=== PATIENT | female | born 1960 | race Caucasian/White ===

== ENCOUNTER 2023-07-10 12:40 | Outpatient (OUT) | payer MEDICARE, MEDICAID, SELFPAY ==
--- NOTE | 2023-07-10 12:43 | US_ITS ---
The [address] [address] Patient Name: JUAN DANIEL PADILLA MRN: [id number] date: 1960 Sex: F Assigned Patient Location: [place] Current Patient Location: Accession/Order Number: [id number] Exam Date: 07/10/2023 12:48 Report Date: 07/12/2023 07:49 At the request of: JOHNY GALAN Procedure: US thyroid EXAMINATION: US thyroid HISTORY: Papillary Microcarcinoma Of Thyroid C73 COMPARISON: 07/12/2022 TECHNIQUE: Sonographic images of the thyroid gland were obtained. FINDINGS: The right thyroid lobe measures 6.7 cm. 2 focal nodules measuring up to 7 mm. The thyroid isthmus measures 1.5 mm, normal. The left thyroid lobe measures 3.9 x 0.9 0.8 cm. 4 nodules measuring up to 6 mm. The most suspicious nodule: Right thyroid lobe. 0.7 x 0.5 0.4 cm. Solid, hypoechoic, wide, smooth margins, TR 4 US/US thyroid IMPRESSION: Bilateral subcentimeter thyroid nodules, no follow-up is required TI-RADS: The [employer] TI-RADS committee's white paper recommendations for thyroid lesions classified as TR4 (moderately suspicious) are listed below: > 1.0 cm. Follow-up ultrasound in 1, 2, 3, and 5 years. > 1.5 cm. FNA. J. Am Leandra Radiol 2017;14:[id number]. . Electronically authenticated by: CEDRIC KERR Date: 07/12/2023 07:49
== END 2023-07-10 12:41 | disposition home or self-care (01) ==
LOC: US 12:40
PROVIDERS: PCP Family Medicine; Visit Provider Otolaryngology
DX: C73 Malignant neoplasm of thyroid gland (principal)
CPT/HCPCS: 76536

== ENCOUNTER 2023-08-26 11:00 | Outpatient (OUT) | payer MEDICARE, MEDICAID, SELFPAY ==
--- OUTSIDE RECORDS SUMMARY | 2023-08-26 11:07 | XMS_ITS | CCD ---
Author Name Unknown Address [address] [place] [address] Organization [facility] Care Team Providers Care Vp Training Name Role Phone Jeffry Woodall Unavailable Unavailable Jeffry Woodall Unavailable Unavailable SELF, REFERRED Unavailable Unavailable SELF, REFERRED Unavailable Unavailable Patrick Coley Unavailable Unavailable OSMANY GAMINO Unavailable Unavailable MERCED BEAL Primary Care Unavailable FRANCES HURT Attending Unavailable Merced Beal Primary Care Provider MD Merced Beal Primary Care Provider MD Vazquez Villar Attending Provider Vazquez Villar Unavailable ADAMA, DR MCCLAIN Admitting Unavailable TIMMIS, DR MCCLAIN Attending Unavailable EMIGDIO, DR HUITRON Primary Care Unavailable TIMMIS, DR MCCLAIN Consulting Unavailable WEST, DR CEDRIC Abdi Consulting Unavailable EMIGDIO, DR HUITRON Admitting Unavailable EMIGDIO, DR HUITRON Attending Unavailable EMIGDIO, DR HUITRON Primary Care Unavailable EMIGDIO, DR HUITRON Consulting Unavailable WEST, DR CEDRIC Abdi Consulting Unavailable Jose C Sheela Unavailable Merced Beal Primary Care Unavailable Jian, Vazquez S Attending Unavailable Jian, Vazquez S Admitting Unavailable Vazquez Villar S Attending Unavailable Vazquez Villar S Admitting Unavailable Merced Beal Primary Care Unavailable MERCY WILSON Attending Unavailable JOHNY GALAN Attending Unavailable MERCED BEAL Referring Unavailable Allergies Allergy Classification Reported Allergen(s) Allergy Type Date of Onset Reaction(s) Facility (1 source) Penicillins Propensity to adverse reactions to drug 3 [facility] [place] (20 sources) cyclobenzaprine; Translations: [Flexeril] Drug Allergy 6 HEADACHE [facility] (20 sources) Bleach Propensity to adverse reactions Unknown [employer] Other (1 source) diazePAM Drug Allergy 6 [facility] (1 source) gabapentin Drug Allergy 6 [facility] (1 source) Hypochlorite Drug Allergy 6 [facility] (1 source) Penicillins Drug allergy (disorder) 6 [facility] (3 sources) Dust Propensity to adverse reactions Unknown [employer] Other (3 sources) Mold Propensity to adverse reactions Unknown [employer] Other (3 sources) Penicillin Drug Allergy hives [employer] Other Medications Current Medications Medication Drug Class(es) Dates Sig (Normalized) Sig (Original) acetaminophen 325 mg oral tablet (2 sources) take 2 tablets by mouth every six hours as needed for pain acetaminophen (TYLENOL) 325 MG tablet Take 650 mg by mouth every 6 hours as needed for Pain 0 Active take 600 mg by mouth every six hours as needed Acetaminophen (TYLENOL EX ST ARTHRITIS P AIN PO) Take 600 mg by mouth every 6 hours as needed 0 Active ascorbic acid 250 mg oral tablet (1 source) Vitamin C take 2 tablets by mouth once daily Ascorbic Acid (VITAMIN C) 250 MG tablet Take 500 mg by mouth daily. 0 Active aspirin 325 mg oral tablet (1 source) Platelet Aggregation Inhibitor, Nonsteroidal Anti-inflammatory Drug take 2 tablets by mouth once daily aspirin 325 MG tablet Take 650 mg by mouth daily 0 Active baclofen 10 mg oral tablet (12 sources) gamma-Aminobutyric Acid-ergic Agonist take 1 tablet by mouth every eight hours Baclofen 10 MG 1 tablet as needed Orally TID Active Bee pollen (1 source) take 1 tablet by mouth once daily BEE POLLEN PO Take 1 tablet by mouth daily. 0 Active cephalexin 500 mg oral capsule (20 sources) Cephalosporin Antibacterial take 1 capsule by mouth every twelve hours Flax Seed Oil (3 sources) Flax Seed Oil Active furosemide 40 mg oral tablet (20 sources) Loop Diuretic take 1 tablet by mouth every twelve hours gabapentin 300 mg oral capsule (4 sources) Anti-epileptic Agent Start: 3 take 1 capsule by mouth every twelve hours Gabapentin 300 MG 1 capsule Orally bid for 30 days Mar, Active ibuprofen 600 mg oral tablet (20 sources) Nonsteroidal Anti-inflammatory Drug Start: 6 take 1 tablet by mouth every six hours as needed for pain ibuprofen (ADVIL;MOTRIN) 600 MG tablet Take 1 tablet by mouth every 6 hours as needed for Pain 30 tablet 0 02/27/2016 Active take 1 tablet by lambert three times daily at mealtime as needed Advil 200 MG 1 tablet with food or milk as needed Orally Three times a day Active linseed oil 1000 mg oral capsule (1 source) Flaxseed, Linsee d, (FLAXSEED OIL) 1000 MG CAPS Take 500 mg by mouth daily. 0 Active Magnesium (3 sources) Magnesium Active meloxicam 15 mg oral tablet (20 sources) Nonsteroidal Anti-inflammatory Drug Start: 020 take 0.5-1 tablets by mouth once daily as needed plecanatide 3 mg oral tablet (7 sources) take 1 tablet by mouth every twenty-four hours Trulance 3 MG 1 tablet Orally Once a day Active probiotic (3 sources) probiotic Active soybean lecithin 1200 mg oral capsule (1 source) take 2 capsules by mouth once daily Lecithin 1200 MG CAPS Take 2,400 mg by mouth daily. 0 Active SZSTANDARD1-Topical Cream Baclofen 2%, Cyclobenzaprine HCL 2%, Diclofenac Na 3%, Gabapentin 6%, Lidocaine HCL 2% Cream (20 sources) Start: 022 SZSTANDARD1-Topical Cream Baclofen 2%, Cyclobenzaprine HCL 2%, Diclofenac Na 3%, Gabapentin 6%, Lidocaine HCL 2% Cream NEEDED TOPICALLY APPLY 1-2 GRAMS FOR 2-3 MINUTES EVERY 6-8 HOURS for 30 days G89.29 Chronic pain Dec, Active Start: 11-23-2019 SZSTANDARD1-To pical Cream Baclofen 2%, Cyclobenzaprine HCL 2%, Diclofenac Na 3%, Gabapentin 6%, Lidocaine HCL 2% Cream NEEDED TOPICALLY APPLY 1-2 GRAMS FOR 2-3 MINUTES EVERY 6-8 HOURS for 30 days G89.29 Chronic pain Oct, Active Start: 11-23-2019 TENS Unit (15 sources) Start: 01-19-2022 TENS Unit Use as directed. Dec, Active tiZANidine 4 mg oral tablet (10 sources) Central alpha-2 Adrenergic Agonist Start: 08-29-2022 take 0.5-1 tablets by mouth twice daily as needed tiZANidine HCl 4 MG 1/2 to 1 tablet as needed Orally twice daily for 30 days Aug, Active topiramate 25 mg oral tablet (20 sources) Start: 11-23-2019 take 1 tablet by mouth twice daily Trulance 3 MG (1 source) take 1 tablet by mouth once daily Trulance 3 MG 1 tablet Orally Once a day Active Trulance 3mg (5 sources) take 1 tablet by mouth once daily Trulance 3mg 1 tablet po once a day Active Turmeric extract (3 sources) Turmeric Active Tylenol Extra Strength 500 MG (20 sources) take 1 tablet by mouth every six hours as needed Tylenol Extra Strength 500 MG 1 tablet as needed Orally every 6 hrs Active Vitamin B 12 (20 sources) Vitamin B12 Vitamin B12 Active take 1 tablet by mouth once oksana y Cyanocobalamin (B-12) 500 MCG TABS Take 1 tablet by mouth daily. 0 Active vitamin d 1000 unt oral tablet (1 source) take 1 tablet by lambert th once daily vitamin D (CHOLECALCIFEROL) 1000 UNIT TABS tablet Take 1,000 Units by mouth daily 0 Active Vitamin D3 (20 sources) Vitamin D3 Activ e vitamin e 180 mg oral capsule (3 sources) take 1 capsule by mo uth every twenty-four hours Vitamin E 180 MG (400 UNIT) 1 capsule Orally Once a day Active Completed/Discontinued Medications Medication Drug Class(es) Dates Sig (Normalized) Sig (Original) 200 actuat albuterol 0.09 mg/actuat metered dose inhaler (1 source) beta2-Adrenergic Agonist Start: 09-19-2014 End: 04-27-2019 take 2 puff(s) by inhalation every six hours as needed for wheezing albuterol (PROVENTIL HFA) 108 (90 BASE) MCG/ACT inhaler Inhale 2 puffs into the lungs every 6 hours as needed for Wheezing. 1 Inhaler 3 09/19/2014 04/27/2019 Discontinued (Therapy completed) guaiFENesin 400 mg oral tablet (1 source) End: 04-27-2019 take 1 tablet by mouth four times daily as needed for cough guaiFENesin 400 MG tablet Take 400 mg by mouth 4 times daily as needed for Cough. 0 04/27/2019 Discontinued (Therapy completed) meclizine hydrochloride 12.5 mg oral tablet (2 sources) Antiemetic Start: 04-27-2019 End: 04-27-2019 meclizine (ANTIVERT) tablet 50 mg Start: 04-27-2019 End: 05-07-2019 take 1 tablet by mouth three times daily as needed for dizziness meclizine (ANTIVERT) 25 MG tablet Take 1 tablet by mouth 3 times daily as needed for Dizziness 15 tablet 0 04/27/2019 05/07/2019 Active methocarbamol 500 mg oral tablet (1 source) Muscle Relaxant End: 04-27-2019 take 1 tablet by mouth once daily as needed methocarbamol (ROBAXIN) 500 MG tablet Take 500 mg by mouth daily as needed 0 04/27/2019 Discontinued (Therapy completed) NONFORMULARY (1 source) End: 04-27-2019 NONFORMULARY Take 1,000 mg by mouth daily. Vit d 3 0 04/27/2019 Discontinued (Therapy completed) predniSONE 10 mg oral tablet (7 sources) prednisone 10 mg as directed Orally as directed Not-Taking 50 ml sodium chloride 9 mg/ml injection (1 source) Start: 04-27-2019 End: 04-27-2019 0.9 % sodium chloride bolus therapeutic multivitamin-mineral s (THERAGRAN-M) tablet (1 source) End: 04-27-2019 take 1 tablet by mouth once daily therapeutic multivitamin-minera ls (THERAGRAN-M) tablet Take 1 tablet by mouth daily. 0 04/27/2019 Discontinued (Therapy completed) triamcinolone acetonide 40 mg/ml injectable suspension (20 sources) Corticosteroid Start: 02-05-2022 Kenalog-40 Jan, 40 mg Problems Active Problems Problem Classification Problem Date Documented Da te Episodic/Chronic Biliary tract disease (3 sources) Gallstone; Translations: [Calculus of gallbladder without cholecystitis without obstruction] Episodic Cancer of thyroid (3 sources) Papillary thyroid carcinoma; Translations: [Malignant neoplasm of thyroid gland] Chronic Miscellaneous mental health disorders (3 sources) Primary insomnia; Translations: [Primary insomnia] Chronic Osteoarthritis (20 sources) Osteoarthritis of left knee joint; Translations: [Unilateral primary osteoarthritis, left knee] Onset: 01-19-2022 Resolved: 03-20-2022 Chronic Other acquired deformities (3 sources) Spondylolisthesis; Translations: [Spondylolisthesis, lumbar region] Episodic Other bone disease and musculoskeletal deformities (3 sources) Idiopathic scoliosis; Translations: [Other idiopathic scoliosis, lumbar region] Chronic Other connective tissue disease (3 sources) Fibromyalgia; Translations: [Fibromyalgia] Episodic Other gastrointestinal disorders (3 sources) Slow transit constipation; Translations: [Slow transit constipation] Episodic Other nervous system disorders (20 sources) Chronic pain; Translations: [Other chronic pain] Chronic Other nervous system disorders (18 sources) Other chronic pain Onset: 10-02-2021 Resolved: 03-20-2022 Chronic Other nervous system disorders (3 sources) Paresthesia of lower extremity; Translations: [Paresthesia of skin] Episodic Other nutritional; endocrine; and metabolic disorders (3 sources) Xanthoma of eyelid; 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 Other screening for suspected conditions (not mental disorders or infectious disease) (7 sources) Encounter for screening mammogram for malignant neoplasm of breast; Translations: [Mammography abnormal] Onset: 08-03-2022 Episodic Other upper respiratory disease (3 sources) Seasonal allergic rhinitis; Translations: [Other seasonal allergic rhinitis] Chronic Other upper respiratory infections (3 sources) Sinusitis; Translations: [Chronic sinusitis, unspecified] Chronic Spondylosis; intervertebral disc disorders; other back problems (20 sources) Lumbosacral spondylosis; Translations: [Spondylosis without myelopathy or radiculopathy, lumbosacral region] Onset: 10-02-2021 Resolved: 03-20-2022 Chronic Spondylosis; intervertebral disc disorders; other back problems (20 sources) Radiculopathy, lumbar region; Translations: [Lumbar radiculopathy] Onset: 10-02-2021 Resolved: 11-06-2021 Episodic Thyroid disorders (10 sources) Nontoxic multinodular goiter; Translations: [Thyroid nodule] Onset: 07-12-2022 Chronic Unclassified (2 sources) Unknown / UNK(Unknown) Onset: 04-04-2016 Unclassified (1 source) M25.562 - Pain in left knee; Translations: [M25.562 - Pain in left knee] Onset: 01-01-2022 Past or Other Problems Problem Classification Problem Date Documented Da te Episodic/Chronic Conditions associated with dizziness or vertigo (1 source) Dizziness; Translations: [Dizziness] Episodic Other nervous system disorders (1 source) Paresthesia; Translations: [Paresthesia] Episodic Other non-traumatic joint disorders (2 sources) Pain in left knee Onset: 01-19-2022 Resolved: 02-05-2022 Episodic Results Test Name Value Interpretation Reference Range Facility XR pre/post mri xrayon 10-16 XR pre/post mri xray [facility] [place] [address] MRI Report Signed Patient: Osiris Padilla MR#: [id number] 0 : 1960 Acct:[id number] Age/Sex: 61 / F ADM Date: 10/15/22 Loc: Room: Type: [facility] Attending Dr: Vazquez Villar MD Copies to: Vazquez Villar MD Ordering Provider: Vazquez Villar MD Date of Service: 10/15/22 MR/MR lumbar spine wo con: M54.16 ([id number]) XR/XR pre/post mri xray: M54.16 MR lumbar spine wo con, XR pre/post mri xray 10/15/2022 4:33 PM SIGNS AND SYMPTOMS: Chronic back pain radiating into right leg PROTOCOL: Multiplanar multisequence MR images of the lumbar spine were obtained without IV contrast. Frontal and lateral radiograph of the lumbar spine were obtained. COMPARISON: 08/11/2021 FINDINGS: Radiographs of the cervical spine: There is a dextro convex curvature of the lower lumbar spine. There is a mild levoconvex curvature at the thoracolumbar junction. Bilateral L5 pars defects are noted with grade 2 spondylolisthesis measuring 2.1 cm of L5 upon S1. This is similar to the prior exam. There is moderate to severe disc height loss at L2-L3 and L3-L4 with severe disc height loss at L5-S1. This is slightly worse when compared to the prior study. There is evidence of prior cholecystectomy. Mild degenerative changes are noted in the sacral iliac joints. Degenerative changes are noted in the hips, right greater than left. MRI lumbar spine: Disc height loss and alignment is as noted above. This preservation of vertebral body heights. There is fusion across L5-S1 disc. There is a hemangioma in the L2 vertebral body with Modic type II fatty endplate degenerative change at L2-L3. There is mild Modic type I endplate edema at L3-L4.. The conus terminates at the inferior endplate of the L2 vertebral body level. No epidural or paraspinous fluid collection is appreciated. At T12-L1: There is a broad-based disc bulge with facet hypertrophy. There is mild bilateral neural foraminal narrowing with mild spinal canal narrowing. This is unchanged. At L1-L2: There is a broad-based disc bulge with facet hypertrophy. There is mild spinal canal narrowing without significant neural foraminal narrowing. This is unchanged. At L2-L3: There is a circumferential disc bulge with facet hypertrophy. There is moderate narrowing of spinal canal. There is moderate right and mild left neural foraminal stenosis. This is unchanged. At L3-L4: There is a circumferential disc bulge with facet hypertrophy. There is moderate narrowing of spinal canal with mild to moderate right and moderate to severe left neural foraminal stenosis. There is slight interval worsening when compared to the prior exam. At L4-L5: There is a broad-based disc bulge with facet hypertrophy. There is mild narrowing of spinal canal. There is mild right and moderate to severe left neural foraminal stenosis. This is unchanged. At L5-S1: There is endplate osteophyte formation with significant anterolisthesis of L5 upon S1. There is facet hypertrophy. There is moderate to severe bilateral neural foraminal narrowing left greater than right with mass effect on the exiting L5 nerve roots bilaterally. This is similar to the prior exam. MR/MR lumbar spine wo con IMPRESSION: At L3-L4: There is a circumferential disc bulge with facet hypertrophy. There is moderate narrowing of spinal canal with mild to moderate right and moderate to severe left neural foraminal stenosis. There is slight interval worsening when compared to the prior exam. At L5-S1: There is endplate osteophyte formation with significant anterolisthesis of L5 upon S1. There is facet hypertrophy. There is moderate to severe bilateral neural foraminal narrowing left greater than right with mass effect on the exiting L5 nerve roots bilaterally. This is similar to the prior exam. Additional lesser degrees of degenerative changes are noted showing no significant change when compared to the prior exam. Impression dictated by: Frances Hernandez M.D.10/15/2022 10:19 PM Dictation Location: [place] [address] Transcribed By: [facility] 10/15/222218 Dictated By: Frances Hernandez II, MD 10/15/222212 Signed By: 10/15/222218 [facility] MG MAMM SCREEN 3D AL CADon 08-03-2022 MG MAMM SCREEN 3D AL CAD Patient: JUAN DANIEL PADILLA Exam Date: 08/03/2022 : 1960 Gender:F Ordering : DR MERCED BEAL M.D. Admission #: [id number] Family : Order #: [id number] CLICK HERE TO VIEW EXAM RADIOLOGY REPORT PROCEDURE: MAMMOGRAM SCREENING 3D BILATERAL CAD COMPARISON: MG MAMM SCREEN AL W CAD, 07/28/2020. MG MAMM SCREEN 3D AL CAD, 08/01/2021. INDICATIONS: Screening mammography Calculator Name NCI Breast Cancer Risk Assessment Tool 5 Year Breast Cancer Risk 1.10% Lifetime Breast Cancer Risk 4.90% Personal Breast Cancer No Personal Ovarian Cancer No Treatments Thyroidectomy Family Cancers None LOCATION: [facility] BREAST COMPOSITION: Scattered areas fibroglandular density. FINDINGS: DIAGNOSTIC CATEGORY 1--NEGATIVE. NO CHANGE FROM COMPARISON ASSESSMENT. Scattered benign-appearing calcifications are present. Scattered benign-appearing lymph nodes are present. RIGHT BREAST: No significant suspicious finding. LEFT BREAST: No significant suspicious finding. RECOMMENDATIONS: ROUTINE MAMMOGRAM AND CLINICAL EVALUATION IN 12 MONTHS. PLEASE NOTE: A NORMAL MAMMOGRAM DOES NOT EXCLUDE THE POSSIBILITY OF BREAST CANCER. A CLINICALLY SUSPICIOUS PALPABLE LUMP SHOULD BE BIOPSIED. Dictated by: Cedric Kerr MD on 08/03/2022 at 15:01 Approved by: Cedric Kerr MD on 08/03/2022 at 15:03 Normal [facility] US THYROIDon 07-12-2022 US THYROID EXAMINATION: US THYROID HISTORY: Non-toxic multinodular goiter COMPARISON: No relevant comparison available. TECHNIQUE: Sonographic images of the thyroid gland were obtained. FINDINGS: The right thyroid lobe is asymmetrically small, heterogeneous measuring 2.0 x 0.4 x 1.0 cm. Subcentimeter nodules largest measuring 7 mm. The thyroid isthmus measures 1.1 mm. No focal nodule The left thyroid lobe measures 4.4 x 1.0 x 1.7 cm. 3 subcentimeter nodules the largest measuring 8 mm Nodule 1:0.8 x 0.4 x 0.8 cm. Solid, isoechoic, wide, smooth margins, no calcifications. TR 3 IMPRESSION: Scattered subcentimeter nodules no follow-up Electronically authenticated by: CEDRIC KERR Date: 2022-07-12 19:03 Normal [facility] XR knee LT 4V*on 01-01-2022 XR knee LT 4V* [facility] Main [place] [address] [place] [address] XRay Report Signed Patient: Osiris Padilla MR#: [id number] 0 : 1960 Acct:[id number] Age/Sex: 61 / F ADM Date: 01/01/22 Loc: XD Room: Type: [facility] Attending Dr: Vazquez Villar MD Ordering Provider: Vazquez Villar MD Date of Service: 01/01/22 XR/XR knee LT 4V*: M25.562 Copies to: Vazquez Villar MD LEFT KNEE - 4 views COMPARISON: None CLINICAL DATA: Lateral left knee pain after climbing into a vehicle yesterday. No specific injury. AP, lateral and both oblique views were obtained. There is no acute fracture or dislocation. There is minimal narrowing of the medial tibiofemoral joint compartment. There is mild tricompartment marginal spurring, greatest at the posterior patella. There is a knee effusion. No focal soft tissue swelling is seen. XR/XR knee LT 4V* IMPRESSION: DEGENERATIVE CHANGES. KNEE EFFUSION. Impression dictated by: Mercy Salgado M.D.01/01/2022 4:46 PM Dictation Location: [place] [address] Transcribed By: [facility] 01/01/22 164 Dictated By: Mercy Salgado MD 01/01/22 1644 Signed By: 01/01/22 164 [facility] CBC Auto Differentialon [id number] Basophils (Bld) [#/Vol] 0.07 10*3/uL [facility] [place] Basophils/100 WBC (Bld) 1 % 0 - 2 % [facility] [place] Differential Type NOT REPORTED [place], [place] Eosinophils (Bld) [#/Vol] 0.08 10*3/uL [place] Eosinophils/100 WBC (Bld) 1 % 1 - 4 % [place] Erythrocyte distribution width (RBC) [Ratio] 12.8 % 11.8 - 14.4 % [place] Hematocrit (Bld) [Volume fraction] 43.7 % 36.3 - 47.1 % [place] Hemoglobin (Bld) [Mass/Vol] 14.6 g/dL 11.9 - 15.1 g/dL [place] Immature granulocytes (Bld) [#/Vol] 10*3/uL [place] Immature granulocytes (Bld) [#/Vol] 0 % 0 [place] Interpretation and review of laboratory results Abnormal [place] Lymphocytes (Bld) [#/Vol] 1.92 10*3/uL [place] Lymphocytes/100 WBC (Bld) 27 % 24 - 43 % [place] MCH (RBC) [Entitic mass] 29.9 pg 25.2 - 33.5 pg [place] MCHC (RBC) [Mass/Vol] 33.4 g/dL 28.4 - 34.8 g/dL [place] MCV (RBC) [Entitic vol] 89.5 fL 82.6 - 102.9 fL [place] Monocytes (Bld) [#/Vol] 0.37 10*3/uL [place] Monocytes/100 WBC (Bld) 5 % 3 - 12 % [place] Platelet mean volume (Bld) [Entitic vol] 10.2 fL 8.1 - 13.5 fL [place] Platelets (Bld) [#/Vol] 255 10*3/uL [place] Platelets (Bld) [#/Vol] NOT REPORTED [place] RBC (Bld) [#/Vol] 4.88 10*6/uL 3.95 - 5.1 1 m/uL [place] RBC morphology finding Nom (Bld) NOT REPORTED [place] Segmented neutrophils/100 WBC (Bld) 66 % High 36 - 65 % [place] Segs Absolute 4.70 [place] WBC (Bld) [#/Vol] 0.0 10*3/uL 0.0 per 10 0 WBC [place] WBC (Bld) [#/Vol] 7.2 10*3/uL [place] WBC Morphology NOT REPORTED [place], [place] CBC with Diffon 04-27-2019 Abs. Basophil 0.07 k/uL Normal 0.00-0.20 [facility] Comment on above: Performed By: #### T HUA CHAPA, CP #### [address] [place] [id number] Automatic Chief: Osmany Chow MD Abs.Imm.Granulocyte <0.03 Normal 0.00-0.30 [facility] Comment on above: Performed By: #### HUA DE OLIVEIRA, CP #### [address] [place] [id number] Automatic Chief: Osmany Chow MD Abs.Neutrophil (Seg) 4.70 k/uL Normal 1.50-8.10 [facility] Comment on above: Performed By: #### HUA DE OLIVEIRA, CP #### [address] [place] [id number] Automatic Chief: Osmany Chow MD Basophils/100 WBC (Bld) 1 % Normal 0-2 [facility] Comment on above: Performed By: #### HUA DE OLIVEIRA, CP #### [address] [place] [id number] Automatic Chief: Osmany Chow MD Eosinophils (Bld) [#/Vol] 0.08 10*3/uL Normal 0.00-0.44 [facility] Comment on above: Performed By: #### HUA DE OLIVEIRA, CP #### [address] [place], [place] [address] Automatic Chief: Osmany Chow MD Eosinophils/100 WBC (Bld) 1 % Normal 1-4 [facility] Comment on above: Performed By: #### HUA DE OLIVEIRA, CP #### [facility] [address] [place], [facility] Automatic Chief: Osmany Chow MD Erythrocyte distribution width (RBC) [Ratio] 12.8 % Normal 11.8-14.4 [facility] Comment on above: Performed By: #### HUA DE OLIVEIRA, CP #### [facility] [address] [place] [address] Automatic Chief: Osmany Chow MD Hematocrit (Bld) [Volume fraction] 43.7 % Normal 36.3-47.1 [facility] Comment on above: Performed By: #### HAU DE OLIVEIRA, CP #### [address] [place], [place] [address] Automatic Chief: Osmany Chow MD Hemoglobin (Bld) [Mass/Vol] 14.6 g/dL Normal 11.9-15.1 [facility] Comment on above: Performed By: #### HUA DE OLIVEIRA, CP #### [address] [place] [address] Automatic Chief: Osmany Chow MD Immature granulocytes (Bld) [#/Vol] 0 % Normal 0 [facility] Comment on above: Performed By: #### HUA DE OLIVEIRA, CP #### [facility] [address] [place], [facility] Automatic Chief: Osmany Chow MD Lymphocytes (Bld) [#/Vol] 1.92 10*3/uL Normal 1.10-3.70 [facility] Comment on above: Performed By: #### HUA DE OLIVEIRA, CP #### [facility] [address] [place] [id number] Automatic Chief: Osmany Chow MD Lymphocytes/100 WBC (Bld) 27 % Normal 24-43 [facility] Comment on above: Performed By: #### HUA DE OLIVEIRA, CP #### [facility] [address] [place] [id number] Automatic Chief: Osmany Chow MD MCH (RBC) [Entitic mass] 29.9 pg Normal 25.2-33.5 [facility] Comment on above: Performed By: #### HUA DE OLIVEIRA, CP #### [facility] [address] [place] [id number] Automatic Chief: Osmany Chow MD MCHC (RBC) [Mass/Vol] 33.4 g/dL Normal 28.4-34.8 [facility] Comment on above: Performed By: #### HUA DE OLIVEIRA, CP #### [facility] [address] [place], [id number] Automatic Chief: Osmany Chow MD MCV (RBC) [Entitic vol] 89.5 fL Normal 82.6-102.9 [facility] Comment on above: Performed By: #### HUA DE OLIVEIRA, CP #### [facility] [address] [place], [place] [id number] Automatic Chief: Osmany Chow MD Monocytes (Bld) [#/Vol] 0.37 10*3/uL Normal 0.10-1.20 [facility] Comment on above: Performed By: #### HUA DE OLIVEIRA, CP #### [facility] [address] [place], [place] [id number] Automatic Chief: Osmany Chow MD Monocytes/100 WBC (Bld) 5 % Normal 3-12 [facility] Comment on above: Performed By: #### HUA DE OLIVEIRA, CP #### [facility] [address] [place] [address] Automatic Chief: Osmany Chow MD Neutrophil (Seg) 66 % High 36-65 [facility] Comment on above: Performed By: #### T HUA CHAPA, CP #### [address] [place] [address] Automatic Chief: Osmany Chow MD NRBC Automated 0.0 per 100 WBC Normal 0.0 [facility] Comment on above: Performed By: #### T HUA CHAPA, CP #### [facility] [address] [place] [address] Automatic Chief: Osmany Chow MD Platelet mean volume (Bld) [Entitic vol] 10.2 fL Normal 8.1-13.5 [facility] Comment on above: Performed By: #### T HUA CHAPA, CP #### [address] [place] [address] Automatic Chief: Osmany Chow MD Platelets (Bld) [#/Vol] 255 10*3/uL Normal 138-453 [facility] Comment on above: Performed By: #### T HUA CHAPA, CP #### [address] [place], [place] [address] Automatic Chief: Osmany Chow MD RBC (Bld) [#/Vol] 4.88 10*6/uL Normal 3.95-5.11 [facility] Comment on above: Performed By: #### T HUA CHAPA, CP #### [address] [place], [place] [address] Automatic Chief: Osmany Chow MD WBC (Bld) [#/Vol] 7.2 10*3/uL Normal 3.5-11.3 [facility] Comment on above: Performed By: #### T HUA CHAPA, CP #### [address] [place] [address] Automatic Chief: Osmany Chow MD Auto Diff Performed NOT REPORTED Normal [facility] Comment on above: Performed By: #### T HUA CHAPA, CP #### [facility] [address] [place], [place] [phone] Automatic Chief: Osmany Cohw MD Platelets (Bld) [#/Vol] NOT REPORTED Normal [facility] Comment on above: Performed By: #### T HUA CHAPA, CP #### [facility] [address] [place], [place] [id number] Automatic Chief: Osmany Chow MD RBC morphology finding Nom (Bld) NOT REPORTED Normal [facility] Comment on above: Performed By: #### T HUA CHAPA, CP #### [facility] [address] [place], [place] [id number] Automatic Chief: Osmany Chow MD WBC Morphology NOT REPORTED Normal [facility] Comment on above: Performed By: #### T HUA CHAPA, CP #### [facility] [address] [place], [place] [id number] Automatic Chief: Osmany Chow MD CT HEAD WO CONTRASTon 2018 CT HEAD WO CONTRAST EXAMINATION: CT OF THE HEAD WITHOUT CONTRAST 04/27/2019 3:43 pm TECHNIQUE: CT of the head was performed without the administration of intravenous contrast. Dose modulation, iterative reconstruction, and/or weight based adjustment of the mA/kV was utilized to reduce the radiation dose to as low as reasonably achievable. COMPARISON: 06 August 2015 HISTORY: ORDERING SYSTEM PROVIDED HISTORY: Lightheaded and paresthesia TECHNOLOGIST PROVIDED HISTORY: FINDINGS: BRAIN/VENTRICLES: There is no acute intracranial hemorrhage, mass effect or midline shift. No abnormal extra-axial fluid collection. The alexandre-white differentiation is maintained without evidence of an acute infarct. There is no evidence of hydrocephalus. Scattered hypodensity is present in the white matter consistent with chronic microvascular change. ORBITS: The visualized portion of the orbits demonstrate no acute abnormality. SINUSES: The visualized paranasal sinuses and mastoid air cells demonstrate no acute abnormality. SOFT TISSUES/SKULL: No acute abnormality of the visualized skull or soft tissues. IMPRESSION: No acute intracranial abnormality. Interpreted by: Mireya Liu MD Signed by: Mireya Liu MD 04/27/19 Final result Normal [facility] CT Head WO Contraston 2018 No acute intracrania l abnormality. [facility] KELSY Vladimir, Mhpn Incoming Radiant Results From [facility] - 04/27/2019 3:57 PM EDT EXAMINATION: CT OF THE HEAD WITHOUT CONTRAST 04/27/2019 3:43 pm TECHNIQUE: CT of the head was performed without the administration of intravenous contrast. Dose modulation, iterative reconstruction, and/or weight based adjustment of the mA/kV was utilized to reduce the radiation dose to as low as reasonably achievable. COMPARISON: 06 August 2015 HISTORY: ORDERING SYSTEM PROVIDED HISTORY: Lightheaded and paresthesia TECHNOLOGIST PROVIDED HISTORY: FINDINGS: BRAIN/VENTRICLES: There is no acute intracranial hemorrhage, mass effect or midline shift. No abnormal extra-axial fluid collection. The alexandre-white differentiation is maintained without evidence of an acute infarct. There is no evidence of hydrocephalus. Scattered hypodensity is present in the white matter consistent with chronic microvascular change. ORBITS: The visualized portion of the orbits demonstrate no acute abnormality. SINUSES: The visualized paranasal sinuses and mastoid air cells demonstrate no acute abnormality. SOFT TISSUES/SKULL: No acute abnormality of the visualized skull or soft tissues. IMPRESSION: No acute intracranial abnormality. [facility] KELSY EXAMINATION: CT OF T HE HEAD WITHOUT CONTRAST 04/27/2019 3:43 pm TECHNIQUE: CT of the head was performed without the administration of intravenous contrast. Dose modulation, iterative reconstruction, and/or weight based adjustment of the mA/kV was utilized to reduce the radiation dose to as low as reasonably achievable. COMPARISON: 06 August 2015 HISTORY: ORDERING SYSTEM PROVIDED HISTORY: Lightheaded and paresthesia TECHNOLOGIST PROVIDED HISTORY: FINDINGS: BRAIN/VENTRICLES: There is no acute intracranial hemorrhage, mass effect or midline shift. No abnormal extra-axial fluid collection. The alexandre-white differentiation is maintained without evidence of an acute infarct. There is no evidence of hydrocephalus. Scattered hypodensity is present in the white matter consistent with chronic microvascular change. ORBITS: The visualized portion of the orbits demonstrate no acute abnormality. SINUSES: The visualized paranasal sinuses and mastoid air cells demonstrate no acute abnormality. SOFT TISSUES/SKULL: No acute abnormality of the visualized skull or soft tissues. [facility] (cont.) Normal [facility] Comment on above: Result Comment: Aver age GFR for 60-69 years old: 85 mL/min/1.73sq m Chronic Kidney Disease: <60 mL/min/1.73sq m Kidney failure: <15 mL/min/1.73sq m eGFR calculated using average adult body mass. Additional eGFR calculator available at: http://www.[employer]/multiple_crcl_2012.htm Performed By: #### T HUA CHAPA, CP #### [facility] [address] [place], [place] [id number] Automatic Chief: Osmany Chow MD Albumin [Mass/Vol] 4.6 g/dL Normal 3.5-5.2 [facility] Comment on above: Performed By: #### HUA DE OLIVEIRA, CP #### [facility] [address] [place], [place] [id number] Automatic Chief: Osmany Chow MD Albumin/Globulin [Mass ratio] 1.4 {ratio} Normal 1.0-2.5 [facility] Comment on above: Performed By: #### HUA DE OLIVEIRA, CP #### [facility] [address] [place], [place] [id number] Automatic Chief: Osmany Chow MD Alkaline Phos 129 U/L High 35-104 [facility] Comment on above: Performed By: #### HUA DE OLIVEIRA, CP #### [facility] [address] [place], [place] [phone] Automatic Chief: Osmany Chow MD ALT [Catalytic activity/Vol] 13 U/L Normal 5-33 [facility] Comment on above: Performed By: #### HUA DE OLIVEIRA, CP #### [facility] [address] [place], [place] [id number] Automatic Chief: Osmany Chow MD Anion gap [Moles/Vol] 20 mmol/L High 9-17 [facility] Comment on above: Performed By: #### HUA DE OLIVEIRA, CP #### [facility] [address] [place], [place] [id number] Automatic Chief: Osmany Chow MD AST [Catalytic activity/Vol] 16 U/L Normal <32 [facility] Comment on above: Performed By: #### T EDUARD CDP, CP #### [facility] [address] [place], [place] [id number] Automatic Chief: Osmany Chow MD Bilirubin Ql (U) 0.36 mg/dL Normal 0.3-1.2 [facility] Comment on above: Performed By: #### T HUA CHAPA, CP #### [facility] [address] [place], [place] [id number] Automatic Chief: Osmany Chow MD BUN/CRE Ratio 9 Normal 9-20 [facility] Comment on above: Performed By: #### T HUA CHAPA, CP #### [facility] [address] [place], [place] [phone] Automatic Chief: Osmany Chow MD Calcium [Mass/Vol] 9.7 mg/dL Normal 8.6-10.4 [facility] Comment on above: Performed By: #### T HUA CHAPA, CP #### [address] [place], [place] [id number] Automatic Chief: Osmany Chow MD Chloride [Moles/Vol] 96 mmol/L Low 98-107 [facility] Comment on above: Performed By: #### T HUA CHAPA, CP #### [facility] [address] [place], [place] [id number] Automatic Chief: Osmany Chow MD CO2 [Moles/Vol] 23 mmol/L Normal 20-31 [facility] Comment on above: Performed By: #### T HUA CHAPA, CP #### [facility] [address] [place], [place] [phone] Automatic Chief: Osmany Chow MD Creatinine [Mass/Vol] 1.17 mg/dL High 0.50-0.90 [facility] Comment on above: Performed By: #### T HUA CHAPA, CP #### [facility] [address] [place], [place] [phone] Automatic Chief: Osmany Chow MD GFR, Amer 57 mL/min Low >60 [facility] Comment on above: Performed By: #### T HUA CHAPA, CP #### [facility] [address] [place], [place] [id number] Automatic Chief: Osmany Chow MD GFR,non Amer 47 mL/min Low >60 [facility] Comment on above: Performed By: #### T HUA CHAPA, CP #### [facility] [address] [place], [place] [id number] Automatic Chief: Osmany Chow MD Glucose [Mass/Vol] 185 mg/dL High 70-99 [facility] Comment on above: Performed By: #### T HUA CHAPA, CP #### [facility] [address] [place], [place] [phone] Automatic Chief: Osmany Chow MD Potassium [Moles/Vol] 4.1 mmol/L Normal 3.7-5.3 [facility] Comment on above: Performed By: #### T HUA CHAPA, CP #### [facility] [address] [place], [place] [id number] Automatic Chief: Osmany Chow MD Protein [Mass/Vol] 7.8 g/dL Normal 6.4-8.3 [facility] Comment on above: Performed By: #### T HUA CHAPA, CP #### [facility] [address] [place], [place] [id number] Automatic Chief: Osmany Chow MD Sodium [Moles/Vol] 139 mmol/L Normal 135-144 [facility] Comment on above: Performed By: #### T HUA CHAPA, CP #### [facility] [address] [place], [place] [id number] Automatic Chief: Osmany Chow MD Staging: Normal [facility] Comment on above: Result Comment: Stag e 1: Some kidney damage normal GFR Stage 2: Mild kidney damage GFR 60-89 Stage 3: Moderate kidney damage GFR 30-59 Stage 4: Severe kidney damage GFR 15-29 Stage 5: Severe kidney damage GFR <15 ESRD - chronic treatment by dialysis or transplant Performed By: #### HUA DE OLIVEIRA, CP #### [facility] [address] [place], [place] [id number] Automatic Chief: Osmany Chow MD Urea nitrogen [Mass/Vol] 11 mg/dL Normal 8 [facility] Comment on above: Performed By: #### HUA DE OILVEIRA, CP #### [facility] [address] [place] [address] Automatic Chief: Osmany Chow MD [facility] Metabolic [facility] 04-27-2019 Albumin [Mass/Vol] 4.6 g/dL 3.5 - 5.2 g/dL [place], [place] Albumin/Globulin [Mass ratio] 1.4 {ratio} [place], [place] ALP [Catalytic activity/Vol] 129 U/L High 35 - 104 U/L [place] ALT [Catalytic activity/Vol] 13 U/L 5 - 33 U/L [place] Anion gap [Moles/Vol] 20 mmol/L High 9 - 17 mmol/L [place] AST [Catalytic activity/Vol] 16 U/L <32 [place] Bilirubin Ql (U) 0.36 mg/dL 0.3 - 1.2 mg/dL [place] Bun/Cre Ratio 9 [place], [place] Calcium [Mass/Vol] 9.7 mg/dL 8.6 - 10. 4 mg/dL [place] Chloride [Moles/Vol] 96 mmol/L Low 98 - 10 7 mmol/L [place] CO2 [Moles/Vol] 23 mmol/L 20 - 31 mmol/L [place] Creatinine [Mass/Vol] 1.17 mg/dL High 0.5 - 0.9 mg/dL [place] GFR 57 mL/min Low >60 [place], [place] GFR Non- 47 mL/min Low >60 [place] Glucose [Mass/Vol] 185 mg/dL High 70 - 99 mg/dL [place] Interpretation and review of laboratory results Abnormal [place] Potassium [Moles/Vol] 4.1 mmol/L 3.7 - 5.3 mmol/L [place] Protein [Mass/Vol] 7.8 g/dL 6.4 - 8.3 g/dL [place], [place] Sodium [Moles/Vol] 139 mmol/L 135 - 144 mmol/L [place] Urea nitrogen [Mass/Vol] 11 mg/dL 8 - 23 mg/dL [place] Metabolic Panelon 04-27-2019 GFR/1.73 sq M predicted among non-blacks MDRD (S/P/Bld) [Vol rate/Area] [place], [place] Comment on above: Stage 1: Some kidney damage normal GFR Stage 2: Mild kidney damage GFR 60-89 Stage 3: Moderate kidney damage GFR 30-59 Stage 4: Severe kidney damage GFR 15-29 Stage 5: Severe kidney damage GFR <15 ESRD - chronic treatment by dialysis or transplant Average GFR for 60-6 9 years old: 85 mL/min/1.73sq m Chronic Kidney Disease: <60 mL/min/1.73sq m Kidney failure: <15 mL/min/1.73sq m eGFR calculated using average adult body mass. Additional eGFR calculator available at: http://www.[employer]/multiple_crcl_2012.htm Troponinon 04-27-2019 Troponin I.cardiac [Mass/Vol] ng/mL Normal <0.03 [facility] Comment on above: Result Comment: Trop onin T results cannot be compared to Troponin-I results. Performed By: #### T HUA CHAPA, CP #### [facility] [address] [place] [address] Automatic Chief: Osmany Chow MD Troponin I.cardiac [Mass/Vol] Normal [facility] Comment on above: Result Comment: Refe rence Range: <0.03 Within reference range. 0.03-0.09 Possible myocardial damage. Repeat at appropriate intervals to rule out chronic elevation. >= 0.10 Indicative of myocardial damage. Patients with high levels of Biotin oral intake (i.e >5mg/day) may have falsely decreased Troponin T levels. Samples collected within 8 hours of biotin intake may require additional information for diagnosis. Performed By: #### T HUA CHAPA, CP #### [facility] [address] [place] [address] Automatic Chief: Osmany Chow MD Troponin I.cardiac [Mass/Vol] NOT REPORTED Normal 0-14 [facility] Comment on above: Performed By: #### T HUA CHAPA, CP #### [facility] [address] [place] [address] Automatic Chief: Osmany Chow MD Troponin I.cardiac [Mass/Vol] [place], [place] Comment on above: Reference Range: <0.03 Within reference range. 0.03-0.09 Possible myocardial damage. Repeat at appropriate intervals to rule out chronic elevation. >= 0.10 Indicative of myocardial damage. Patients with high levels of Biotin oral intake (i.e >5mg/day) may have falsely decreased Troponin T levels. Samples collected within 8 hours of biotin intake may require additional information for diagnosis. Troponin T.cardiac [Mass/Vol] ug/L <0.03 ng/mL [place], [place] Comment on above: Troponin T results c annot be compared to Troponin-I results. Troponin, High Sensitivity NOT REPORTED 0 - 14 ng/L [place] Vital Signs Date Time Vital Sign Value Performing Clinician Facility 05-27-2023 13:45-0400 Body height 165.1 cm Vazquez Villar Other [facility] Other 05-27-2023 13:45-0400 Diastolic blood pressure 80 mm[Hg] Vazquez Villar Other [facility] Other 05-27-2023 13:45-0400 SaO2% (BldA) [Mass fraction] 97 % Vazquez Jian Other [facility] Other 05-27-2023 13:45-0400 Systolic blood pressure 118 mm[Hg] Vazquez Jian Other [facility] Other 04-29-2023 13:30-0400 Body height 165.1 cm Vazquez Jian Other [facility] Other 04-29-2023 13:30-0400 Diastolic blood pressure 72 mm[Hg] Vazquez Jian Other [facility] Other 04-29-2023 13:30-0400 Systolic blood pressure 120 mm[Hg] Vazquez Jian Other [facility] Other 04-04-2023 14:30-0400 Diastolic blood pressure 70 mm[Hg] Vazquez Jian Other [facility] Other 04-04-2023 14:30-0400 SaO2% (BldA) [Mass fraction] 98 % Vazquez Jian Other [facility] Other 04-04-2023 14:30-0400 Systolic blood pressure 120 mm[Hg] Vazquez Jian Other [facility] Other 03-05-2023 11:00-0400 Body weight 75.84 kg Vazquez Jian Other [facility] Other 11-20-2022 12:15-0400 Body weight 73.94 kg Vazquez Jian Other [facility] Other 11-20-2022 12:15-0400 Diastolic blood pressure 84 mm[Hg] Vazquez Jian Other [facility] Other 11-20-2022 12:15-0400 SaO2% (BldA) [Mass fraction] 97 % Vazquez Jian Other [facility] Other 11-20-2022 12:15-0400 Systolic blood pressure 126 mm[Hg] Vazquez Jian Other [facility] Other 11-05-2022 15:15-0400 Body weight 77.02 kg Vazquez Jian Other [facility] Other 11-05-2022 15:15-0400 Diastolic blood pressure 60 mm[Hg] Vazquez Jian Other [facility] Other 11-05-2022 15:15-0400 SaO2% (BldA) [Mass fraction] 98 % Vazquez Jian Other [facility] Other 11-05-2022 15:15-0400 Systolic blood pressure 100 mm[Hg] Vazquez Jian Other [facility] Other 10-17-2022 15:30-0400 Body weight 77.52 kg Vazquez Jian Other [facility] Other 10-17-2022 15:30-0400 Diastolic blood pressure 70 mm[Hg] Vazquez Jian Other [facility] Other 03-22-2023 15:30-0400 SaO2% (BldA) [Mass fraction] 98 % Vazquez Villar Other [facility] Other 10-17-2022 15:30-0400 Systolic blood pressure 118 mm[Hg] Vazquez Villar Other [facility] Other 09-26-2022 13:30-0500 Body weight 76.75 kg Vazquez Villar Other [facility] Other 09-26-2022 13:30-0500 Diastolic blood pressure 88 mm[Hg] Vazquez Villar Other [facility] Other 09-26-2022 13:30-0500 SaO2% (BldA) [Mass fraction] 95 % Vazquez Villar Other [facility] Other 09-26-2022 13:30-0500 Systolic blood pressure 142 mm[Hg] Vazquez Villar Other [facility] Other 08-29-2022 12:45-0500 Body weight 76.66 kg Sheela Woodall Other [facility] Other 08-29-2022 12:45-0500 Diastolic blood pressure 60 mm[Hg] Sheela Woodall Other [facility] Other 08-29-2022 12:45-0500 SaO2% (BldA) [Mass fraction] 96 % Sheela Woodall Other [facility] Other 08-29-2022 12:45-0500 Systolic blood pressure 110 mm[Hg] Sheela Woodall Other [facility] Other 08-06-2022 14:00-0500 Body weight 76.2 kg Vazquez Villar Other [facility] Other 08-06-2022 14:00-0500 Diastolic blood pressure 80 mm[Hg] Vazquez Jian Other [facility] Other 08-06-2022 14:00-0500 SaO2% (BldA) [Mass fraction] 99 % Vazquez Jian Other [facility] Other 08-06-2022 14:00-0500 Systolic blood pressure 126 mm[Hg] Vazquez Jian Other [facility] Other 07-04-2022 16:15-0500 Diastolic blood pressure 80 mm[Hg] Vazquez Jian Other [facility] Other 07-04-2022 16:15-0500 SaO2% (BldA) [Mass fraction] 97 % Vazquez Jian Other [facility] Other 07-04-2022 16:15-0500 Systolic blood pressure 120 mm[Hg] Vazquez Jian Other [facility] Other 03-20-2022 11:30-0400 Body weight 79.38 kg Vazquez Villar Other [facility] Other 03-20-2022 11:30-0400 Diastolic blood pressure 76 mm[Hg] Vazquez Jian Other [facility] Other 03-20-2022 11:30-0400 SaO2% (BldA) [Mass fraction] 99 % Vazquez Jian Other [facility] Other 03-20-2022 11:30-0400 Systolic blood pressure 120 mm[Hg] Vazquez Jian Other [facility] Other 02-05-2022 15:15-0400 Diastolic blood pressure 80 mm[Hg] Vazquez Jian Other [facility] Other 02-05-2022 15:15-0400 SaO2% (BldA) [Mass fraction] 99 % Vazquez Jian Other [facility] Other 02-05-2022 15:15-0400 Systolic blood pressure 138 mm[Hg] Vazquez Jian Other [facility] Other 01-19-2022 11:45-0400 Body weight 77.57 kg Vazquez Jian Other [facility] Other 01-19-2022 11:45-0400 Diastolic blood pressure 70 mm[Hg] Vazquez Jian Other [facility] Other 01-19-2022 11:45-0400 SaO2% (BldA) [Mass fraction] 99 % Vazquez Jian Other [facility] Other 01-19-2022 11:45-0400 Systolic blood pressure 118 mm[Hg] Vazquez Jian Other [facility] Other 12-04-2021 15:30-0400 Body weight 77.66 kg Vazquez Jian Other [facility] Other 12-04-2021 15:30-0400 Diastolic blood pressure 76 mm[Hg] Vazquez Jian Other [facility] Other 12-04-2021 15:30-0400 SaO2% (BldA) [Mass fraction] 96 % Vazquez Jian Other [facility] Other 12-04-2021 15:30-0400 Systolic blood pressure 118 mm[Hg] Vazquez Jian Other [facility] Other 11-06-2021 12:30-0400 Body weight 77.02 kg Vazquez Jian Other [facility] Other 11-06-2021 12:30-0400 Diastolic blood pressure 60 mm[Hg] Vazquez Jian Other [facility] Other 11-06-2021 12:30-0400 SaO2% (BldA) [Mass fraction] 98 % Vazquez Jian Other [facility] Other 11-06-2021 12:30-0400 Systolic blood pressure 110 mm[Hg] Vazquez Jian Other [facility] Other 10-19-2021 16:45-0400 Body weight 76.93 kg Vazquez Jian Other [facility] Other 10-19-2021 16:45-0400 Diastolic blood pressure 80 mm[Hg] Vazquez Jian Other [facility] Other 10-19-2021 16:45-0400 SaO2% (BldA) [Mass fraction] 98 % Vazquez Jian Other [facility] Other 10-19-2021 16:45-0400 Systolic blood pressure 140 mm[Hg] Vazquez Jian Other [facility] Other 10-02-2021 14:30-0500 Body weight 77.47 kg Vazquez Villar Other [facility] Other 10-02-2021 14:30-0500 Diastolic blood pressure 82 mm[Hg] Vazquez Romanoky Other [facility] Other 10-02-2021 14:30-0500 SaO2% (BldA) [Mass fraction] 99 % Vazquez Villar Other [facility] Other 10-02-2021 14:30-0500 Systolic blood pressure 110 mm[Hg] Vazquez Villar Other [facility] Other 04-27-2019 17:30-0400 BP Diastolic 67 mm[Hg] [facility] [place] 04-27-2019 17:30-0400 BP Systolic 125 mm[Hg] [facility] 04-27-2019 17:30-0400 Pulse (Heart Rate) 66 /min [facility] [place] 04-27-2019 14:47-0400 BMI (Body Mass Index) 25.02 kg/m2 [facility] [place] 04-27-2019 14:47-0400 Body Temperature 97.5 [degF] [facility] [place] 04-27-2019 14:47-0400 Body weight 70.31 kg Frances [employer] [place] , [place] 04-27-2019 14:47-0400 Pulse Oximetry 99 % [facility] [place] , [place] 04-27-2019 14:47-0400 Respiratory Rate 16 /min [facility] [place] Encounters Encounter Date Encounter Type Care Provider Facility Start: 07-17-2023 End: 07-17-2023 ambulatory JOHNY H TIMMIS Not Available Start: 06-18-2023 End: 06-18-2023 ambulatory MERCY WILSON Not Available Start: 05-27-2023 End: 05-27-2023 ambulatory Vazquez Jian Other [employer] Other Start: 05-27-2023 Office outpatient vi sit 15 minutes Vazquez Jian [facility] Start: 05-09-2023 (PROC) PROCEDURE Vazquez Jian [facility] Start: 05-09-2023 End: 05-09-2023 ambulatory Vazquez Jian Other [employer] Other Start: 04-29-2023 End: 04-29-2023 ambulatory Vazquez Jian Other [employer] Other Start: 04-29-2023 Office outpatient vi sit 25 minutes Vazquez Jian [facility] Start: 04-04-2023 End: 04-04-2023 ambulatory Vazquez Jian Other [employer] Other Start: 04-04-2023 Office outpatient vi sit 15 minutes Vazquez Jian [facility] Start: 03-14-2023 (PROC) PROCEDURE Vazquezkeanu Ventura [facility] Start: 03-14-2023 End: 03-14-2023 ambulatory Vazquez Jian Other [employer] Other Start: 03-05-2023 End: 03-05-2023 ambulatory Vazquez Jian Other [employer] Other Start: 03-05-2023 Office outpatient vi sit 25 minutes Vazquez Jian [facility] Start: 02-26-2023 (PROC) PROCEDURE Vazquezkeanu Ventura [facility] Start: 02-26-2023 End: 02-26-2023 ambulatory Vazquez Jian Other [employer] Other Start: 11-20-2022 End: 11-20-2022 ambulatory Vazquez Jian Other [employer] Other Start: 11-20-2022 Office outpatient vi sit 15 minutes Vazquez Jian [facility] Start: 11-05-2022 End: 11-05-2022 ambulatory Vazquez Jian Other [employer] Other Start: 11-05-2022 Office outpatient vi sit 25 minutes Vazquez Jian [facility] Start: 10-25-2022 (PROC) PROCEDURE Vazquezkeanu Villar [facility] Start: 10-25-2022 End: 10-25-2022 ambulatory Vazquez Jian Other [employer] Other Start: 10-17-2022 End: 10-17-2022 ambulatory Vazquez Jian Other [employer] Other Start: 10-17-2022 Office outpatient vi sit 25 minutes Vazquez Jian [facility] Start: 10-15-2022 End: 10-15-2022 ambulatory Rugen M [place] Facility:[facility] Start: 09-26-2022 End: 09-26-2022 ambulatory Vazquez Jian Other [employer] Other Start: 09-26-2022 Office outpatient vi sit 25 minutes Vazquez Jian [facility] Start: 08-29-2022 End: 08-29-2022 ambulatory Sheela Woodall Other [employer] Other Start: 08-29-2022 Office outpatient vi sit 15 minutes Sheela Woodall [facility] Start: 08-29-2022 Telephone encounter Vazquez Jian [facility] Start: 08-14-2022 (PROC) PROCEDURE Vazquezkeanu Villar [facility] Start: 08-14-2022 End: 08-14-2022 ambulatory Vazquez Jian Other [employer] Other Start: 08-06-2022 End: 08-06-2022 ambulatory Vazquez Villar Other [employer] Other Start: 08-06-2022 Office outpatient vi sit 25 minutes Vazquezkeanu Villar [facility] Start: 08-03-2022 End: 08-04-[address] MERCED BEAL Facility:[facility] Start: 07-19-2022 (PROC) PROCEDURE Vazquez Villar [facility] Start: 07-19-2022 End: 07-19-2022 ambulatory Vazquez Villar Other [employer] Other Start: 07-12-2022 End: 07-13-[address] JOHNY GALAN Facility:[facility] Start: 07-04-2022 End: 07-04-2022 ambulatory Vazquez Villar Other [employer] Other Start: 07-04-2022 Office outpatient vi sit 25 minutes Vazquezkeanu Villar [facility] Start: 06-26-2022 (Procedure) Short Vazquez Villar [facility] Start: 06-26-2022 End: 06-26-2022 ambulatory Vazquez Villar Other [employer] Other Start: 03-20-2022 End: 03-20-2022 ambulatory Vazquez Villar Other [employer] Other Start: 03-20-2022 Office outpatient vi sit 25 minutes Vazquez Jian [facility] Start: 02-05-2022 End: 02-05-2022 ambulatory Vazquezkeanu Villar Other [employer] Other Start: 02-05-2022 Office outpatient vi sit 15 minutes Vazquez Jian [facility] Start: 01-19-2022 End: 01-19-2022 ambulatory Vazquez Jian Other [employer] Other Start: 01-19-2022 Office outpatient vi sit 25 minutes Vazquez Jian [facility] Start: 01-01-2022 End: 01-01-2022 ambulatory Vazquez S Jian Facility:[facility] Start: 01-01-2022 End: 01-01-2022 Patient encounter procedure MD Merced Beal Work Phone: [facility] Start: 12-04-2021 End: 12-04-2021 ambulatory Vazquez Jian Other [employer] Other Start: 12-04-2021 Office outpatient vi sit 25 minutes Vazquez Jian [facility] Start: 11-16-2021 (Procedure) Short Vazquez Villar [facility] Start: 11-16-2021 End: 11-16-2021 ambulatory Vazquez Jian Other [employer] Other Start: 11-06-2021 End: 11-06-2021 ambulatory Vazquez Jian Other [employer] Other Start: 11-06-2021 Office outpatient vi sit 25 minutes Vazquez Jian [facility] Start: 10-26-2021 (Procedure) Short Vazquez Villar [facility] Start: 10-26-2021 End: 10-26-2021 ambulatory Vazquez Jian Other [employer] Other Start: 10-19-2021 End: 10-19-2021 ambulatory Vazquez Jian Other [employer] Other Start: 10-19-2021 Office outpatient vi sit 25 minutes Vazquez Jian [facility] Start: 10-12-2021 (Procedure) Short Vazquezkeanu Villar [facility] Start: 10-12-2021 End: 10-12-2021 ambulatory Vazquez Villar Other [employer] Other Start: 10-02-2021 End: 10-02-2021 ambulatory Vazquez Villar Other [employer] Other Start: 10-02-2021 Office outpatient vi sit 25 minutes Vazquez Villar [facility] Start: 04-27-2019 Emergency department patient visit MERCED BEAL [facility] Start: 04-27-2019 End: 04-27-2019 Emergency department patient visit Frances Hurt Work Phone: [facility] ED Comment on above: Dizziness (Primary D x); Paresthesia Start: 02-28-2017 End: 03-01-2017 Ambulatory Patrick Herrmannzane Facility::[id number] Start: 04-04-2016 End: 04-05-2016 Ambulatory Jeffry Woodall Facility:[facility] Procedures Date Procedure Procedure Detail Performing Clinician Start: 01-01-2022 Radiologic examinati on of knee MD Merced Beal Work Phone: Start: 04-27-2019 Ct head/brain w/o co ntrast material RUGEN EMIGDIO Start: 04-27-2019 ORTHOSTATIC BLOOD WY ESSURE AND PULSE RUGEN EMIGDIO Start: 04-27-2019 Assay of troponin quantitative RUGEN EMIGDIO Start: 04-27-2019 Blood count complete auto&auto difrntl wbc RUGEN EMIGDIO Start: 04-27-2019 Comprehensive metabo lic panel RUGEN EMIGDIO Start: 04-27-2019 Ecg routine ecg w/le ast 12 lds w/i&r RUGEN EMIGDIO Start: 04-27-2019 INSERT PERIPHERAL IV RU GEN EMIGDIO Start: 04-27-2019 TELEMETRY MONITORING RU GEN EMIGDIO Start: 04-27-2019 VITAL SIGNS - NOTIFY MD MERCED BEAL Start: 04-27-2019 Ct head/brain w/o co ntrast material Frances Hurt Work Phone: Start: 04-27-2019 Assay of troponin quantitative Frances Blu Work Phone: Start: 04-27-2019 Blood count complete auto&auto difrntl wbc Frances Hurt Work Phone: Start: 04-27-2019 Comprehensive metabo lic panel Frances Hurt Work Phone: Start: 04-27-2019 Ecg routine ecg w/le ast 12 lds w/i&r Frances Hurt Work Phone: Plan of Treatment Date Care Activity Detail Author Start: 03-29-2019 Influenza vaccination Flu vaccine (# 1) [place], [place] Start: 01-20-2018 Lipid screen Lipid screen [place], [place] Start: 01-20-2015 Breast cancer screen Breast cancer s creen [place], [place] Start: 2008 Colon cancer screen colonoscopy Colon cancer screen colonoscopy [place], [place] Start: 2008 Shingles Vaccine (1 of 2) Shingles Vaccine (1 of 2) [place] Start: 12-23-1979 Cervical cancer screen Cervical canc er screen [place], [place] Start: 1977 DTaP/Tdap/Td vaccine (1 - Tdap) DTaP/Tdap/Td vaccine (1 - Tdap) [place], [place] Start: 1973 HIV screen HIV screen [place], [place] Start: 1958 Hepatitis C screen Hepatitis C scree n [place], [place] EKG 12 Lead EKG 12 Lead ECG STAT 04/27/2019 2:47 PM EDT [place], [place] Immunizations Immunization Date Immunization Notes Care Provider Fa donnell 07-06-2019 tetanus toxoid, reduced diphtheria toxoid, and acellular pertussis vaccine, adsorbed Vazquez Villar Other [facility] [employer] Other 05-09-2016 influenza, injectable,quadrivalen t, preservative free, pediatric Vazquez Villar Other [facility] [employer] Other Payers Date Payer Category Payer Self-pay [id number] 2019 Private Health Insurance [id number] 2019 Private Health Insurance [employer]AC[employer]AP xxxxxxxxxx 2019-Present [phone] [address] [place] [address] xxxxxxxxxx [id number] 2017 Medicare [id number] 2017 Medicare MEDICARE MEDICAR E PART A AND B xxxxxxxxxxx 2017-Present [phone] [address] [address] [place] [address] xxxxxxxxxxx [id number] 1959 Medicaid [id number] 1959 Unknown [id number] 1958 Unknown [id number] 1958 Unknown [id number] 1958 Unknown [id number] 1958 Unknown [id number] 1958 Unknown [id number] Medicare [place] [employer] Dual Adv [id number] Medicare [id number] Unknown [id number] Unknown [id number] Unknown [id number] Social History Date Type Detail Facility Start: 04-27-2019 [facility] Start: 04-27-2019 [facility] [place] [facility] Start: 1960 Sex Assigned At Female F [facility] Clinical Notes 11-07-2015 to 05-27-2023 Note Date & Type Note Facility 05-27-2023 Evaluation note Encounter Date Diagnosis Assessment Notes Apr, Lumbosacral spondylosis (ICD-10 - M47.817) Continue with current treatment plan. Apr, Sacroiliitis (ICD-10 - M46.1) 62 year old female here for follow up status post bilateral sacroiliac joint injection under fluoroscopic guidance. Patient reports 70-80% pain relief to the area treated as well as improved walking, standing and daily functions following procedure. She continues to complain of some residual low back pain with intermittent radiation down the right lower extremity. Overall, she appears to be doing well. I recommend she continue her activities as tolerated. She is counseled against any excessive bending or twisting. She is advised to call the office if her pain returns. Apr, Lumbar radiculopathy (ICD-10 - M54.16) Consider repeat epidural steroid injections to help relieve the burning in the right lower extremity if needed. Apr, Chronic pain (ICD-10 - G89.29) Follow up as needed. [employer] Other 10-02-2023 Evaluation note* Encounter Date Diagnosis Assessment Notes Treatment Notes Treatment Clinical Notes Apr, Lumbosacral spondylosis (ICD-10 - M47.817) Patient reports 70% pain relief as well as improved function in walking, standing and daily activities following the procedure. Apr, Sacroiliitis (ICD-10 - M46.1) 62 y/o female here for follow up status post lumbar facet medial branch radiofrequency ablation bilaterally at L3, L4 as well as L5 dorsal ramus for denervation of L4-5, L5-S1 facet joints under fluoroscopic guidance. Patient reports 70% pain relief as well as improved function in walking, standing and daily activities following the procedure. She voices complaints of low back pain with radiation down the posterior aspect of the right lower extremity to the knee. She continues taking Gabapentin with relief and is requesting a refill of this today. Anatomy of spine as well as different treatment options were discussed in detail with patient in regards to patients condition. I recommend we proceed with a bilateral sacroiliac joint injection under fluoroscopic guidance. Risks and benefits of procedure explained to patient; patient verbalizes understanding. Apr, Lumbar radiculopathy (ICD-10 - M54.16) Consider repeat epidural steroid injections to help relieve the burning in the right lower extremity if needed. Apr, Chronic pain (ICD-10 - G89.29) Follow up in 4 weeks. [employer] Other 09-07-2023 Evaluation note* Encounter Date Diagnosis Assessment Notes Treatment Notes Treatment Clinical Notes Mar, Lumbar radiculopathy (ICD-10 - M54.16) Consider repeat epidural steroid injections to help relieve the burning in the right lower extremity if needed. Mar, Lumbosacral spondylosis (ICD-10 - M47.817) 62 y/o female here for follow up status post lumbar facet medial branch radiofrequency ablation bilaterally at L3, L4 as well as L5 dorsal ramus for denervation of L4-5, L5-S1 facet joints under fluoroscopic guidance. Patient reports 70% pain relief as well as improved function in walking, standing and daily activities following the procedure. She continues to complain of residual low back pain today. She also complains of an intermittent burning sensation down the right lower extremity to the ankle along with muscle spasms at night. I recommend she give the radiofrequency ablation more time to take its full effect. In the meantime she can increase her activiites as tolerated. She is encouraged to follow up in 4 weeks. Mar, Chronic pain (ICD-10 - G89.29) Follow up in 4 weeks. Mar, Sacroiliitis (ICD-10 - M46.1) Consider SI joint injections in the future if needed [employer] Other 08-08-2023 Evaluation note* Encounter Date Diagnosis Assessment Notes Treatment Notes Treatment Clinical Notes Feb, Lumbar radiculopathy (ICD-10 - M54.16) Lower extremity pain is considerably better following the procedure. Feb, Lumbosacral spondylosis (ICD-10 - M47.817) 62 year old female here for follow up status post caudal epidural steroid injection under fluoroscopic guidance. Patient reports 70% relief of her lower extremity pain following the procedure. She voices continued complaints of low back pain. She also complains of some right lower extremity weakness. For her back pain I recommend proceeding with a bilateral lumbar facet medial branch RFA as this provided her with signficant pain relief in the past. Risks and benefits of procedure explained to patient; patient verbalizes understanding. Feb, Chronic pain (ICD-10 - G89.29) Follow up after procedure [employer] Other 04-25-2023 Evaluation note* Encounter Date Diagnosis Assessment Notes Treatment Notes Treatment Clinical Notes Oct, Sacroiliitis (ICD-10 - M46.1) 61 year old female here for follow up status post bilateral sacroiliac joint injection under fluoroscopic guidance. Patient reports 50% pain relief as well as improved walking, standing and daily functions following procedure. She voices continued complaints of low back pain with radiation down the anterior aspect of the right thigh to the knee. Anatomy of spine discussed in detail with patient in regards to patients condition. Overall, patient appears to be doing well and does not require further treatment at this time. I recommend she increase her activities as tolerated. She is counseled against any excessive bending or twisting. She is advised to call the office if her pain worsens Oct, Lumbosacral spondylosis (ICD-10 - M47.817) Patient continues to report at least 50% pain relief and increased function following lumbar facet RFA. Patient is cautioned against excessive twisting, and lifting. Oct, Chronic pain (ICD-10 - G89.29) Patient is encouraged to call the office if her symptoms worsen. [employer] Other 04-10-2023 Evaluation note* Encounter Date Diagnosis Assessment Notes Treatment Notes Treatment Clinical Notes Oct, Lumbar radiculopathy (ICD-10 - M54.16) Patient reports 75% relief of her lower extremity pain, below the knees, following the procedure. Oct, Sacroiliitis (ICD-10 - M46.1) 61 year old female here for follow up status post caudal epidural steroid injection under fluoroscopic guidance. Patient reports 75% relief of her lower extremity pain, below the knees, following the procedure. She continues to complain of residual low back pain with intermittent radiation down the bilateral lower extremities to the knees worse on the right. Anatomy of spine as well as different treatment options were discussed in detail with patient in regards to patients condition. I recommend we proceed with a bilateral sacroiliac joint injection ujnder fluoroscopic guidance. Risks and benefits of procedure explained to patient; patient verbalizes understanding. Oct, Lumbosacral spondylosis (ICD-10 - M47.817) Patient reports 50% overall pain relief following procedure Oct, Chronic pain (ICD-10 - G89.29) Folllow up after imaging [employer] Other 03-22-2023 Evaluation note* Encounter Date Diagnosis Assessment Notes Treatment Notes Treatment Clinical Notes Sep, Lumbar radiculopathy (ICD-10 - M54.16) 61 year old female here for follow up to discuss chronic pain. She voices complaints of low back pain with radiation down the posterior aspect of the right lower extremity to the foot. She rates her pain 7-8/10 today. She feels her pain is negatively impacting her activities of daily living. MRI of the lumbar spine was reviewed and discussed in detail with the patient which showed degenerative changes as well as disc slippage and moderate narrowing in the lower lumbar spinal canal. Anatomy of spine as well as different treatment options were discussed in detail with patient in regards to patients condition. I recommend she follow up with a surgeon to discuss surgical options at this time as her condition appears to have progressed. In the meantime, I recommend we proceed with a caudal epidural steroid injection under fluoroscopic guidance to provide her with an element of relief. Risks and benefits of procedure explained to patient; patient verbalizes understanding. Sep, Sacroiliitis (ICD-10 - M46.1) In the future if the pain persists, we can consider other interventional options. Sep, Lumbosacral spondylosis (ICD-10 - M47.817) Patient reports 50% overall pain relief following procedure Sep, Chronic pain (ICD-10 - G89.29) Folllow up after imaging [employer] Other 03-01-2023 Evaluation note* Encounter Date Diagnosis Assessment Notes Treatment Notes Treatment Clinical Notes Sep, Lumbar radiculopathy (ICD-10 - M54.16) 61 year old female here for follow up status post lumbar facet medial branch radiofrequency ablation bilaterally at L3, L4 as well as L5 for denervation of L4-5, L5-S1 facet joints under fluoroscopic guidance. Patient reports 50% pain relief as well as improved walking, standing and daily functions following procedure. She complains of residual low back pain with radiation down the posterior aspect of the right lower extremity to the foot. She feels the lower extremity pain is worse than the back pain. Different treatment options were discussed in detail with the patient, and I will order updated imaging of the lumbar spine to further evaluate her pain Sep, Sacroiliitis (ICD-10 - M46.1) In the future if the pain persists, we can consider other interventional options. Sep, Lumbosacral spondylosis (ICD-10 - M47.817) Patient reports 50% overall pain relief following procedure Sep, Chronic pain (ICD-10 - G89.29) Folllow up after imaging [employer] Other 02-01-2023 Evaluation note* Encounter Date Diagnosis Assessment Notes Treatment Notes Treatment Clinical Notes Aug, Lumbar radiculopathy (ICD-10 - M54.16) Continue with current treatment plan. Aug, Lumbosacral spondylosis (ICD-10 - M47.817) 61 year old female here for follow up status post lumbar facet medial branch radiofrequency ablation bilaterally at L3, L4 as well as L5 for denervation of L4-5, L5-S1 facet joints under fluoroscopic guidance. Patient reports minimal pain relief as well as improved walking, standing and daily functions following procedure. She continues to complain of low back pain today. I discussed different treatment options with the patient and I recommend that she give the procedure more time as it can take up to 6 weeks for maximum relief. She is encouraged to continue with conservative treatment options such as ice/heat or topical creams as tolerated in the meantime. Aug, Sacroiliitis (ICD-10 - M46.1) In the future if the pain persists, we can consider other interventional options. Aug, Chronic pain (ICD-10 - G89.29) Follow up in 4 weeks. [employer] Other 02-01-2023 Evaluation note* Encounter Date Diagnosis Assessment Notes Treatment Notes Treatment Clinical Notes Aug, Lumbosacral spondylosis (ICD-10 - M47.817) [employer] Other 01-09-2023 Evaluation note* Encounter Date Diagnosis Assessment Notes Treatment Notes Treatment Clinical Notes Jul, Lumbar radiculopathy (ICD-10 - M54.16) Patient reports 70-75% pain relief as well as improved walking, standing and daily functions following procedure. Jul, Lumbosacral spondylosis (ICD-10 - M47.817) 61 year old female here for follow up status post bilateral L4 transforaminal epidural steroid injection under fluoroscopic guidance. Patient reports 70-75% pain relief as well as improved walking, standing and daily functions following procedure. She continues to complain of low back pain today. She complains of mild tingling in the bilateral lower extremities. Anatomy of spine as well as different treatment options were discussed in detail with patient in regards to patients condition. I recommend we repeat the bilateral lumbar facet RFA under fluoroscopic guidance as she states this previously provided her with more than 60-70% relief for more than 6 months. Risks and benefits of procedure explained to patient; patient verbalizes understanding. Jul, Sacroiliitis (ICD-10 - M46.1) Stable. Continue with current treatment plan. Jul, Chronic pain (ICD-10 - G89.29) Continue with current treatment plan [employer] Other 12-07-2022 Evaluation note* Encounter Date Diagnosis Assessment Notes Treatment Notes Treatment Clinical Notes Jun, Lumbar radiculopathy (ICD-10 - M54.16) 61 year old female here for follow up status post bilateral sacroiliac joint injection under fluoroscopic guidance. Patient reports 65-70% pain relief as well as improved walking, standing and daily functions following procedure. She continues to complain of residual low back pain with radiation to the posterior aspect of the bilateral lower extremities to the calves. She also voices complaints of left knee pain. Anatomy of spine discussed in detail with patient in regards to patients condition. Patient is a candidate for a bilateral L4 transforaminal epidural steroid injection under fluoroscopic guidance. Jun, Lumbosacral spondylosis (ICD-10 - M47.817) In the future if the pain persists, we can consider repeating the bilateral lumbar facet RFA under fluoroscopic guidance. Jun, Sacroiliitis (ICD-10 - M46.1) Patient reports 65-70% pain relief and increased function following procedure Jun, Chronic pain (ICD-10 - G89.29) Continue with current treatment plan [employer] Other 08-23-2022 Evaluation note* Encounter Date Diagnosis Assessment Notes Treatment Notes Treatment Clinical Notes Feb, Sacroiliitis (ICD-10 - M46.1) 61 year old female here for follow up to discuss chronic pain. She voices complaints of low back pain. She had a steroid injection to the left knee at her last office visit, she feels this provided 50% relief of her knee pain. She states she recieved the TENS unit, she feels this provides some moderate improvement while on. Anatomy of spine discussed in detail with patient in regards to patients condition. Patient is a candidate for a bilateral sacroiliac joint injection under fluoroscopic guidance. Risks and benefits of procedure explained to patient; patient verbalizes understanding. Feb, Lumbosacral spondylosis (ICD-10 - M47.817) In the future if the pain persists, we can consider proceeding with a lumbar facet MBB followed by a RFA if applicable under fluoroscopic guidance Feb, Chronic pain (ICD-10 - G89.29) Continue with current treatment plan Feb, Primary osteoarthritis of left knee (ICD-10 - M17.12) If her pain worsens we can consider proceeding with gel injections under ultrasound guidance [employer] Other 07-11-2022 Evaluation note* Encounter Date Diagnosis Assessment Notes Treatment Notes Treatment Clinical Notes Jan, Primary osteoarthritis of left knee (ICD-10 - M17.12) 61 year old female here for follow up for chronic pain. She voices complaints of left knee pain. She feels pain can negatively impact her daily activities. Different treatment options were discussed in detail with the patient. I recommend we proceed with a steroid injection to the left knee under ultrasound guidance as previously discussed. Risks and benefits of procedure explained to patient; patient verbalizes understanding. Jan, Pain in left knee (ICD-10 - M25.562) Proceed with steroid injection to the left knee today as previously discussed. Jan, Sacroiliitis (ICD-10 - M46.1) She is encouraged to use TENS unit and a topical compound cream to use as tolerated for pain relief, as previously discussed. Patient states she is still waiting for the TENS unit to be mailed to her. Jan, Lumbar degenerative disc disease (ICD-10 - M51.36) Use TENs unit as directed. Jan, Lumbosacral spondylosis (ICD-10 - M47.817) Stable. Proceed with current treatment plan. Jan, Chronic pain (ICD-10 - G89.29) Follow up in 4 weeks [employer] Other 06-24-2022 Evaluation note* Encounter Date Diagnosis Assessment Notes Treatment Notes Treatment Clinical Notes Dec, Sacroiliitis (ICD-10 - M46.1) 61 year old female here for follow up status post bilateral sacroiliac joint injection under fluoroscopic guidance. Patient reports 50-60% pain relief as well as improved walking, standing and daily functions following procedure. She voices complaints of residual low back pain with radiation down the posterior aspect of the right lower extremity to the calf. I recommend she continue her activities as tolerated as I do not recommend proceeding with more steroid injections in the same area at this time. She is counseled against any excessive bending or twisting. In the meantime, I will order her a TENS unit and a topical compound cream to use as tolerated for pain relief. Dec, Lumbar degenerative disc disease (ICD-10 - M51.36) Use TENs unit as directed. Dec, Lumbosacral spondylosis (ICD-10 - M47.817) Stable. Proceed with current treatment plan. Dec, Primary osteoarthritis of left knee (ICD-10 - M17.12) X-ray of the left knee was reviewed and discussed in detail with the patient which showed mild arthritis and degenerative changes. If her pain persists or worsens, we can consider proceeding with a steroid injection to the left knee under ultrasound guidance at her next office visit. Dec, Pain in left knee (ICD-10 - M25.562) Continue with current treatment plan. Dec, Chronic pain (ICD-10 - G89.29) Continue with current treatment plan. Follow up after procedure. [employer] Other 05-09-2022 Evaluation note* Encounter Date Diagnosis Assessment Notes Treatment Notes Treatment Clinical Notes November, Lumbosacral spondylosis (ICD-10 - M47.817) 60 y/o female here for follow up status post lumbar facet medial branch radiofrequency ablation bilaterally at L3, L4 as well as L5 dorsal ramus for denervation of L4-5 and L5-1 facet joints under fluoroscopic guidance. Patient reports 80% relief of pain and increased walking/ standing and daily function following the procedure. She voices complaints of residual low back pain. Anatomy of spine discussed in detail with patient in regards to patients condition. I recommend she give the procedure more time as it can take up to 6 weeks for maximum relief. She can use heat/ice to painful areas as tolerated. November, Sacroiliitis (ICD-10 - M46.1) If her low back pain November, Chronic pain (ICD-10 - G89.29) [employer] Other 04-11-2022 Evaluation note* Encounter Date Diagnosis Assessment Notes Treatment Notes Treatment Clinical Notes Oct, Lumbar radiculopathy (ICD-10 - M54.16) If her lower extremity pain becomes bothersome, I will refer her to Dr Robert for surgical evaluation. Oct, Lumbosacral spondylosis (ICD-10 - M47.817) 60 year old male here for follow up status post bilateral L4 transforaminal epidural steroid injection under fluoroscopic guidance. Patient reports 50% pain relief as well as improved walking, standing and daily functions for 2-3 days following procedure. She now feels relief is at 30-40%. She voices complaints of low back pain with intermittent radiation down the posterior aspect of the bilateral thighs with infrequent pain in her calves. She feels her axial low back pain is most bothersome and is negatively impacting her activities of daily living. Anatomy of spine discussed in detail with patient in regards to patients condition. injections. Patient had previosly had lumbar RFA 2 years ago with more than 80% pain relief and improved function of daily liiving for more than a year. I recommend we proceed with a bilateral lumbar facet RFA under fluoroscopic guidance. Risks and benefits of procedure explained to patient; patient verbalizes understanding. Oct, Sacroiliitis (ICD-10 - M46.1) In the future if the pain persists, we can consider proceeding with a sacroiliac joint injections under fluoroscopic guidance Oct, Chronic pain (ICD-10 - G89.29) Continue with surgical consult [employer] Other 03-24-2022 Evaluation note* Encounter Date Diagnosis Assessment Notes Treatment Notes Treatment Clinical Notes Sep, Sacroiliitis (ICD-10 - M46.1) If her symptoms persist, we can consider proceeding with a bilateral sacroiliac joint injection under fluoroscopic guidance in the future Sep, Lumbar radiculopathy (ICD-10 - M54.16) 73 year old female here for follow up status post caudal epidural steroid injection under fluoroscopic guidance. Patient reports 30-40% pain relief as well as improved walking, standing and daily functions following procedure. She continues to complain of residual low back pain with radiation down the posterior aspect of the bilateral lower extremities, worse on the right. Anatomy of spine discussed in detail with patient in regards to patients condition. Patient is a candidate for a bilateral L4 transforaminal epidural steroid injection under fluoroscopic guidance. Risks and benefits of procedure explained to patient; patient verbalizes understanding. Sep, Lumbosacral spondylosis (ICD-10 - M47.817) In the future if the pain persists, we can consider repeating the lumbar facet RFA under fluoroscopic guidance. Sep, Chronic pain (ICD-10 - G89.29) Continue with current treatment plan [employer] Other 03-07-2022 Evaluation note* Encounter Date Diagnosis Assessment Notes Treatment Notes Treatment Clinical Notes Sep, Lumbar radiculopathy (ICD-10 - M54.16) 60 year old female here for follow up for chronic pain. She was last seen in May 2020. She voices complaints of low back pain with radiation down the posterior aspect of the bilateral thighs to the toes. She feels her pain is negatively impacting her activities of daily living and sleep pattern. Anatomy of spine discussed in detail with patient in regards to patients condition. Patient is a candidate for a caudal epidural steroid injection under fluoroscopic guidance. Risks and benefits of procedure explained to patient; patient verbalizes understanding. Sep, Lumbosacral spondylosis (ICD-10 - M47.817) In the future if the pain persists, we can consider proceeding with a lumbar facet RFA under fluoroscopic guidance. 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 Basilar atelectasis vs. small pneumonia Medical History 01/10/2018 B/L thyroi d nodules the largest in the residual right thyroid lobe measures 1.3 cm Medical History 04/27/2019 CT Scan of Brain No acute intracranial abnormality Medical History GOITER(2012) Surgical History Bilateral tubal ligation Surgical History THYROID 2015 Surgical History section 1982 Surgical History GALLBLADDER Surgical History Broken foot Walking cast 04/02/20 15 Surgical History C SECTION 1982 Surgical History ENDOMETRIOSIS Surgical History thyroid FNA 10/14/2015 Surgical History R filippo thyroidectomy 11/08/2015 Surgical History cholecystectomy 03/09/2016 Hospitalization History SEE ABOVE [employer] Other Evaluation noteNo assessment information available [facility] Work Phone: Evaluation noteNo InformationNort [employer] 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 * Numbness and Tingling (German) * Dizziness (German) documented in this encounter Assessments Diagnosis Dizziness- Primary Dizziness and giddiness Paresthesia Disturbance of skin sensation Chief Complaint and Reason for Visit Chief Complaint M25.562 Additional Source Comments INFORMATION SOURCE (unrecogn ized section and content) DATE CREATED AUTHOR 01/22/2018 [facility] DATE CREATED AUTHOR AUTHOR'S ORGANIZ ATION 01/22/2018 [facility] DATE CREATED AUTHOR AUTHOR'S ORGANIZ ATION 04/29/2019 [facility] DATE CREATED AUTHOR AUTHOR'S ORGANIZ ATION 08/08/2022 [facility] DATE CREATED AUTHOR AUTHOR'S ORGANIZ ATION 10/27/2022 [facility] DATE CREATED AUTHOR AUTHOR'S ORGANIZ ATION 07/18/2023 [facility] EPIC Reason for Visit (unrecogniz ed section and content) Reason Comments Dizziness pt states onset this am Arm Pain pt states she had pa in down both arms Care Teams (unrecognized sec tion and content) Team Status: Inactive Member Role Status Dates Merced Beal MD Primary Care Provider Active Vazquez Villar MD Attending Provider Active Team Status: Active Member Role Status Dates Merced Beal MD Primary Care Provider Active Goals (unrecognized section and content) Goals may be documented in a n alternate sectionNo InformationNo InformationNo InformationNo InformationNo InformationNo InformationNo InformationNo InformationNo InformationNo InformationNo InformationNo InformationNo InformationNo InformationNo InformationNo InformationNo InformationNo InformationNo InformationNo InformationNo InformationNo InformationNo InformationNo InformationNo InformationNo InformationNo InformationNo InformationNo Information FOR RECORDS PERTAINING TO PATIENTS WHO ARE OR HAVE BEEN ENROLLED IN A CHEMICAL DEPENDENCY/SUBSTANCEABUSE PROGRAM, SOME INFORMATION MAY BE OMITTED. This clinical summary was aggregated from multiple sources. Caution should be exercised in using it in the provision of clinical care. This summary normalizes information from multiple sources, and as a consequence, information in this document may materially change the coding, format and clinical context of patient data. In addition, data may be omitted in some cases. CLINICAL DECISIONS SHOULD BE BASED ON THE PRIMARY CLINICAL RECORDS. [facility]. provides no warranty or guarantee of the accuracy or completeness of information in this document.
--- NOTE | 2023-08-26 11:11 | MM_ITS ---
Patient Name: JUAN DANIEL PADILLA MR#: [id number] : 1960 Exam Date: 08/26/2023 Ordering Doctor: DR TOMY BEAL M.D. RADIOLOGY REPORT PROCEDURE: MM TOMOSYNTHESIS SCREENING BI COMPARISON: MG MAMM SCREEN 3D AL CAD, 08/01/2021. MG MAMM SCREEN 3D AL CAD, 08/03/2022. INDICATIONS: screening Calculator Name NCI Breast Cancer Risk Assessment Tool 5 Year Breast Cancer Risk 1.20% Lifetime Breast Cancer Risk 4.70% Personal Breast Cancer No Personal Ovarian Cancer No Treatments Thyroidectomy Family Cancers None LOCATION: [facility] BREAST COMPOSITION: Scattered areas fibroglandular density. FINDINGS: DIAGNOSTIC CATEGORY 1--NEGATIVE. NO CHANGE FROM COMPARISON ASSESSMENT. Scattered benign-appearing calcifications are present. Scattered benign-appearing lymph nodes are present. RIGHT BREAST: No significant suspicious finding. LEFT BREAST: No significant suspicious finding. RECOMMENDATIONS: ROUTINE MAMMOGRAM AND CLINICAL EVALUATION IN 12 MONTHS. PLEASE NOTE: A NORMAL MAMMOGRAM DOES NOT EXCLUDE THE POSSIBILITY OF BREAST CANCER. A CLINICALLY SUSPICIOUS PALPABLE LUMP SHOULD BE BIOPSIED. Dictated by: J Carlos Mckeon MD on 08/26/2023 at 13:00 Approved by: J Carlos Mckeon MD on 08/26/2023 at 13:01
== END 2023-08-26 11:01 | disposition home or self-care (01) ==
LOC: MAMMO 11:04
PROVIDERS: PCP Family Medicine; Visit Provider Family Medicine
DX: Z12.31 Encounter for screening mammogram for malignant neoplasm of breast (principal)
CPT/HCPCS: 77063; 77067

== ENCOUNTER 2024-07-10 13:25 | Outpatient (OUT) | payer MEDICARE, MEDICAID, SELFPAY ==
--- OUTSIDE RECORDS SUMMARY | 2024-07-10 13:30 | XMS_ITS | CCD ---
Author Organization [facility]iniSyms Care Team Providers Care Sign Language Interpreter Name Role Phone Jeffry Woodall Unavailable Unavailable [...] WEST, DR CEDRIC Abdi Consulting Unavailable Jose C, Sheela Unavailable Merced Beal Primary Care Unavailable Vazquez Villar Attending Unavailable Vazquez Villar Admitting Unavailable Vazquez Villar Attending Unavailable Vazquez Villar Admitting Unavailable Merced Beal Primary Care Unavailable Merced Beal MD Primary Care Provider MERCY WILSON Attending Unavailable MERCY WILSON Attending Unavailable JOHNY GALAN Attending Unavailable MERCED BEAL Referring Unavailable VINH RAY Attending Unavailable VINH RAY Attending Unavailable Allergies Allergy Classification Reported Allergen(s) Allergy Type Date of Onset Reaction(s) Facility cyclobenzaprine (1 source) cyclobenzaprine Drug Allergy 02-05-20 24 headaches, HEADACHE [facility] house dust allergenic extract (1 source) house dust allergenic extract Drug Allergy 02-05-20 24 Abdominal Pain [facility] Mold (1 source) Mold Substance Allergy 02-05-20 24 Abdominal Pain [facility] Penicillins (antibiotic) (1 source) Penicillins Drug Allergy 02-05-20 24 [facility] (13 sources) Penicillins Propensity to adverse reactions to drug 12-03-19 13 [place] (20 sources) cyclobenzaprine; Translations: [Flexeril] Drug Allergy 11-02-19 16 HEADACHE [facility] (20 sources) Bleach Propensity to adverse reactions Unknown [facility] Other (1 source) diazePAM Drug Allergy 11-02-19 16 [facility] (1 source) gabapentin Drug Allergy 11-02-19 16 [facility] (1 source) Hypochlorite Drug Allergy 11-02-19 16 [facility] (1 source) Penicillins Drug allergy (disorder) 10-05-19 16 [facility] (3 sources) Dust Propensity to adverse reactions Unknown [employer] Other (14 sources) Mold Propensity to adverse reactions 01-07-20 24 Unknown, Abdominal Pain [facility] (3 sources) Penicillin Drug Allergy [facility] [employer] [facility] [employer] Other (14 sources) cyclobenzaprine Drug Allergy 02-13-20 23 Headache, headaches, HEADACHE [facility] (12 sources) house dust allergenic extract Drug Allergy 12-11-19 24 Itching, Abdominal Pain [facility] (1 source) Mold Extract Drug Allergy 12-11-19 24 Unknown Reaction [facility] (13 sources) Bleach (Sodium Hypochlorite) Allergy to substance 12-11-19 24 Unknown Reaction, Abdominal Pain [facility] (2 sources) Hypochlorite Drug Allergy 02-13-20 23 [facility] (2 sources) Penicillin G Drug Allergy 02-13-20 23 [facility] (2 sources) Sulfamethoxazole / Trimethoprim Drug Allergy 06-18-20 23 Swelling [facility] Work Phone: Medications Current Medications Medication Drug Class(es) Dates [...] 1 tablet by mouth daily. 0 Active Calcium Carb-Cholecalciferol (CALCIUM 500 +D PO) (2 sources) take 1 tablet by mouth in the morning Calcium Carb-Cholecalciferol (CALCIUM 500 +D PO) Take 1 tablet by mouth in the morning. Active cefdinir 300 mg oral capsule (2 sources) Cephalosporin Antibacterial Start: End: take 1 capsule by mouth in the morning cefdinir (Omnicef) 300 MG capsule Indications: Acute non-recurrent pansinusitis Take 1 capsule (300 mg) by mouth in the morning and 1 capsule (300 mg) before bedtime. Do all this for 10 days. 20 capsule 05/14/2024 05/24/2024 Active cephalexin 500 mg oral capsule (20 sources) Cephalosporin Antibacterial take 1 capsule by mouth every twelve hours cholecalciferol 0.025 mg oral capsule (3 sources) Vitamin D Start: take 25 ug by mouth once daily Cholecalciferol (Vitamin D3) Active 25 MCG PO Daily December 11, 2023 12:00am cholecalciferol (Vitamin D-3) 125 MCG (5000 UT) capsule as directed Orally Active esomeprazole 40 mg delayed release oral capsule (1 source) Proton Pump Inhibitor Start: 12-11-2023 take 40 mg by mouth once daily Esomeprazole Magnesium Active 40 MG PO Daily December 11, 2023 12:00am Flax Seed Oil (3 sources) Flax Seed Oil Active furosemide 40 mg oral tablet (20 sources) Loop Diuretic Start: 05-01-2023 take 1 tablet by mouth twice daily furosemide (Lasix) 40 MG tablet Indications: Encounter for general adult medical examination without abnormal findings TAKE 1 TABLET BY MOUTH TWICE A DAY FOR 90 DAYS 200 tablet 3 05/01/2023 Active take 1 tablet by mouth every twe lve hours gabapentin 300 mg oral capsule (16 sources) Anti-epileptic Agent Start: 01-07-2024 take 1 capsule by mouth twice daily Gabapentin 300 mg capsule Active MG PO January 06, 2024 11:00pm FreeTextSi capsule Orally bid (*do not refill until 05/04/23); Note: Source Status: Not-[id number] chronic pain; Refills: 0; Provider: Jian Gibbons Start: 04-04-2023 take 1 capsule by mo [facility] every twelve hours Gabapentin 300 MG 1 capsule Orally bid for 30 days Mar, Active ibuprofen 600 mg oral tablet (20 sources) Nonsteroidal Anti-inflammatory Drug Start: 02-27-2016 take 1 tablet by mouth every six hours as needed for pain ibuprofen (ADVIL;MOTRIN) 600 MG tablet Take 1 tablet by mouth every 6 hours as needed for Pain 30 tablet 0 02/27/2016 Active [facility] times daily at mealtime as needed Advil 200 MG 1 tablet with food or milk as needed Orally Three times a day Active lactobacillus rhamnosus gg [id number] unt oral capsule (1 source) Start: 12-11-2023 Lactobacillus Rhamnosus Gg (Probiotic Digestive Care) 20 billion cell capsule Active CELL PO December 11, 2023 12:00am linseed oil 1200 mg oral cap saniya (3 sources) Flaxseed, Linsee d, (Flaxseed Oil) 1200 MG capsule as directed Orally Active Flaxseed, Linsee d, (FLAXSEED OIL) 1000 MG CAPS Take 500 mg by mouth daily. 0 Active Magnesium (3 sources) Magnesium Active Magnesium Oxide (2 sources) magnesium oxide (Mag-Ox) 400 mg tablet 400 mg in the morning. Active mecobalamin (1 source) Start: take 1000 ug by mouth once daily Mecobalamin (Vitamin B12) Active 1000 MCG PO Daily December 11, 2023 12:00am allow to dissolve in mouth OR may chew lightly before swallowing meloxicam 15 mg oral tablet (20 sources) Nonsteroidal Anti-inflammatory Drug Start: 0 take 0.5-1 tablets by mouth once daily as needed plecanatide 3 mg oral tablet (9 sources) Start: 4 End: 5 take 1 tablet by mouth once daily plecanatide (Trulance) tablet tablet Indications: Slow transit constipation Take 1 tablet (3 mg) by mouth Daily 90 tablet 3 03/12/2024 03/12/2025 Active take 1 tablet by lambert th every twenty-four hours Trulance 3 MG 1 tablet Orally Once a day Active Plecanatide (11 sources) Start: 01-07-2024 take 1 tablet by lambert th once daily Plecanatide Active 1 TAB PO Daily January 06, 2024 11:00pm FreeTextSi tablet Orally Once a day; Note: Source Status: Taking; Provider: Jian Shukla ( ) Start: 01-07-2024 take 1 tablet by lambert th once daily Plecanatide Active 1 TAB PO Daily January 07, 2024 12:00am FreeTextSi tablet Orally Once a day; Note: Source Status: Taking; Provider: Jian Shukla ( ) Plecanatide 3 mg tablet (1 source) Start: 01-07-2024 take 1 tablet by mouth once daily Plecanatide 3 mg tablet Active 1 TAB PO Daily January 06, 2024 11:00pm FreeTextSi tablet Orally Once a day; Note: Source Status: Taking; Provider: Jian Shukla ( ) probiotic (3 sources) probiotic Active soybean lecithin 1200 mg oral capsule (1 source) take 2 capsules by mouth once daily Lecithin 1200 MG CAPS Take 2,400 mg by mouth daily. 0 Active SZSTANDARD1 (4 sources) Start: 04-14-2024 SZSTANDARD1 Ac tive 1 - 2 GM TOPICAL every 6 to 8 hours 120 30 April 13, 2024 11:00pm Buderer Compounded Item: Baclofen 2%, Cyclobenzaprine HCl 2%, Diclofenac Na 3%, Gabapentin 6%, Lidocaine HCl 2% Cream Sig: as directed rub 1 to 2 grams for 2 to 3 minutes every 6 to 8 hours as needed Topical Start: 04-14-2024 SZSTANDARD1 Ac tive 1 - 2 GM TOPICAL every 6 to 8 hours 120 April 14, 2024 12:00am Buderer Compounded Item: Baclofen 2%, Cyclobenzaprine HCl 2%, Diclofenac Na 3%, Gabapentin 6%, Lidocaine HCl 2% Cream Sig: as directed rub 1 to 2 grams for 2 to 3 minutes every 6 to 8 hours as needed Topical SZSTANDARD1 cream (1 source) Start: 04-14-2024 SZSTANDARD1 cr eam Active 1 - 2 GM TOPICAL every 6 to 8 hours as needed for Pain 120 April 13, 2024 11:00pm Buderer Compounded Item: Baclofen 2%, Cyclobenzaprine HCl 2%, Diclofenac Na 3%, Gabapentin 6%, Lidocaine HCl 2% Cream Sig: as directed rub 1 to 2 grams for 2 to 3 minutes every 6 to 8 hours as needed Topical SZSTANDARD1-Topical Cream Baclofen 2%, Cyclobenzaprine HCL 2%, Diclofenac Na 3%, Gabapentin 6%, Lidocaine HCL 2% Cream (20 sources) Start: 01-19-2022 SZSTANDARD1-To pical Cream Baclofen 2%, Cyclobenzaprine HCL [...] Dec, Active tiZANidine 4 mg oral tablet (12 sources) Central alpha-2 Adrenergic Agonist Start: 01-13-2024 take 1 tablet by mouth twice daily as needed tiZANidine (Zanaflex) 4 MG tablet TAKE 1/2-1 TABLET BY MOUTH TWICE DAILY NEEDED 08/10/2023 Active Start: 08-29-2022 take 0.5-1 tablets b y mouth twice daily as needed tiZANidine HCl [...] po once a day Active Turmeric extract (18 sources) Start: 01-07-2024 Turmeric 400 m g capsule Active MG PO January 06, 2024 11:00pm Start: 01-07-2024 Turmeric Activ e MG PO January 06, 2024 11:00pm Start: 01-07-2024 Turmeric Activ e MG PO January 07, 2024 12:00am Start: 12-11-2023 Turmeric Activ e MG PO December 11, 2023 12:00am take 2 capsules by m outh in the morning Turmeric (QC Tumeric Complex) 500 MG capsule Take 2 capsules by mouth in the morning. Active Turmeric Active Tylenol Extra Strength 500 MG (20 sources) take 1 tablet by mouth every six hours as needed Tylenol Extra Strength 500 MG 1 tablet as needed Orally every 6 hrs Active vitamin b12 1 mg oral tablet (20 sources) Vitamin B12 take 1 tablet by mouth in the morning cyanocobalamin (Vitamin B-12) 1000 MCG tablet Take 1,000 mcg by mouth in the morning. Active Vitamin B12 Acti ve take 1 tablet by mouth once oksana [...] e vitamin e 180 mg oral capsule (18 sources) Start: 01-07-2024 take 1 capsule by mouth once daily Vitamin E (Dl, Acetate) 180 mg (400 unit) capsule Active 1 CAP PO Daily January 06, 2024 11:00pm FreeTextSi capsule Orally Once a day; Note: Source Status: Taking; Provider: Jian Shukla ( ) Start: 01-07-2024 take 1 capsule by [facility] once daily Vitamin E (Dl, Acetate) Active 1 CAP PO Daily January 07, 2024 12:00am FreeTextSi capsule Orally Once a day; Note: Source Status: Taking; Provider: Jian Shukla ( ) Start: 12-11-2023 take 45 mg by mouth once daily Vitamin E (Dl, Acetate) Active 45 MG PO Daily December 11, 2023 12:00am alpha tocopherol (Vitamin E) 400 units capsule 1 capsule 1 (one) time each day at the same time. Active take 1 capsule by [facility] every twenty-four hours Vitamin E 180 MG [...] Inhaler 3 09/19/2014 04/27/2019 Discontinued (Therapy completed) azithromycin 250 mg oral tablet (2 sources) Macrolide Antimicrobial Start: 09-27-2023 End: 05-14-2024 azithromycin (Zithromax) 250 MG tablet Indications: Pansinusitis, unspecified chronicity Use as directed. 6 tablet 09/27/2023 05/14/2024 Discontinued guaiFENesin 400 mg oral tablet (1 source) [...] cholecystitis without obstruction] Episodic Cancer of thyroid (5 sources) Papillary thyroid carcinoma; Translations: [Malignant neoplasm of thyroid gland] Onset: 02-12-2023 02-12-2023 Chronic Miscellaneous mental health disorders (5 sources) Primary insomnia; Translations: [Primary insomnia] Onset: 02-12-2023 02-12-2023 Chronic Osteoarthritis (20 sources) Osteoarthritis of left knee joint; Translations: [Unilateral primary osteoarthritis, left knee] Onset: 01-19-2022 Resolved: 03-20-2022 Chronic Other acquired deformities (3 sources) Spondylolisthesis; Translations: [Spondylolisthesis, lumbar region] Episodic Other bone disease and musculoskeletal deformities (3 sources) Idiopathic scoliosis; Translations: [Other idiopathic scoliosis, lumbar region] Chronic Other bone disease and musculoskeletal deformities (2 sources) Idiopathic scoliosis of lumbar spine; Translations: [Other idiopathic scoliosis, lumbar region] Onset: 02-12-2023 02-12-2023 Chronic Other nervous system disorders (20 sources) Chronic pain; Translations: [Other chronic pain] 11-18-2023 Chronic Other nervous system disorders (20 sources) Other chronic pain; Translations: [Other chronic pain] Onset: 10-02-2021 Resolved: 03-20-2022 Chronic Other nutritional; endocrine; and metabolic disorders (3 sources) Xanthoma of eyelid; 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 Other upper respiratory disease (5 sources) Seasonal allergic rhinitis; Translations: [Other seasonal allergic rhinitis] Onset: 02-12-2023 02-12-2023 Chronic Other upper respiratory infections (3 sources) Sinusitis; Translations: [Chronic sinusitis, unspecified] Chronic Other upper respiratory infections (2 sources) Acute pansinusitis; Translations: [Acute pansinusitis, unspecified] 05-14-2024 Episodic Spondylosis; intervertebral disc disorders; other back problems (20 sources) Lumbosacral spondylosis; Translations: [Spondylosis without myelopathy or radiculopathy, lumbosacral region] Onset: 10-02-2021 Resolved: 03-20-2022 Chronic Spondylosis; intervertebral disc disorders; other back problems (20 sources) Radiculopathy, lumbar region; Translations: [Lumbar radiculopathy] Onset: 10-02-2021 Resolved: 11-06-2021 Episodic Thyroid disorders (14 sources) Nontoxic multinodular goiter; Translations: [Thyroid nodule] Onset: 07-12-2022 Chronic Unclassified (2 sources) Unknown / UNK(Unknown) Onset: 04-04-2016 Unclassified (1 source) M25.562 - Pain in left knee; Translations: [M25.562 - Pain in left knee] Onset: 01-01-2022 Past or Other Problems Problem Classification Problem Date Documented Da te Episodic/Chronic Conditions associated with dizziness or vertigo (1 source) Dizziness; Translations: [Dizziness] Episodic Mood disorders (2 sources) Mood disorders Onset: 03-12-2024 03-12-2024 Other acquired deformities (2 sources) Lumbar spondylolisthesis; Translations: [Spondylolisthesis , lumbar region] Onset: 02-12-2023 02-12-2023 Episodic Other connective tissue disease (5 sources) Fibromyalgia; Translations: [Fibromyalgia] Onset: 02-12-2023 02-12-2023 Episodic Other eye disorders (2 sources) Xanthelasma; Translations: [Xanthelasma of unspecified eye, unspecified eyelid] Onset: 02-12-2023 02-12-2023 Episodic Other gastrointestinal disorders (5 sources) Slow transit constipation; Translations: [Slow transit constipation] Onset: 02-12-2023 02-12-2023 Episodic Other nervous system disorders (1 source) Paresthesia; Translations: [Paresthesia] Episodic Other nervous system disorders (5 sources) Paresthesia of lower extremity; Translations: [Paresthesia of skin] Onset: 02-12-2023 02-12-2023 Episodic Other non-traumatic joint disorders (2 sources) Pain in left knee Onset: 01-19-2022 Resolved: 02-05-2022 Episodic Other nutritional; endocrine; and metabolic disorders (2 sources) Overweight; Translations: [Overweight] Onset: 02-12-2023 02-12-2023 Episodic Other screening for suspected conditions (not mental disorders or infectious disease) (9 sources) Encounter for screening mammogram for malignant neoplasm of breast; Translations: [Mammography abnormal] Onset: 08-03-2022 Episodic Residual codes; unclassified (2 sources) Bilateral lower limb edema; Translations: [Localized edema] Onset: 02-12-2023 02-12-2023 Episodic Results Test Name Value Interpretation Reference Range Facility XR pre/post mri xrayon 10-16 XR pre/post mri xray [facility] [place] [address] MRI Report Signed Patient: Eal Padilla MR#: [id number] 0 : 1960 Acct:[id number] Age/Sex: 61 / F ADM Date: 10/15/22 Loc: MR Room: Type: [facility] CLI Attending Dr: Vazquez Villar MD Copies to: Vazquez Villar MD Ordering Provider: Vazquez Villar MD Date of Service: 10/15/22 MR/MR lumbar spine wo con: M54.16 ([id number]) XR/XR pre/post mri xray: M54.16 MR lumbar [...] Frances Hernandez M.D.10/15/2022 10:19 PM Dictation Location: [place] [address] Transcribed By: [facility] 10/15/222218 Dictated By: Frances Hernandez II, MD 10/15/222212 Signed By: 10/15/222218 [facility] MG MAMM SCREEN 3D AL CADon 08-03-2022 MG MAMM SCREEN 3D AL CAD Patient: KIRAN PADILLA Exam Date: 08/03/2022 : 1960 Gender:F Ordering : DR MERCED BEAL M.D. Admission #: [id number] Family : Order #: [id number] CLICK HERE TO VIEW EXAM RADIOLOGY REPORT [...] No Treatments Thyroidectomy Family Cancers None LOCATION: [facility] BREAST COMPOSITION: Scattered areas fibroglandular density. FINDINGS: [...] Kerr MD on 08/03/2022 at 15:03 Normal [facility] US THYROIDon 07-12-2022 US THYROID EXAMINATION: US [...] by: CEDRIC KERR Date: 2022-07-12 19:03 Normal [facility] XR knee LT 4V*on 01-01-2022 XR knee LT 4V* [facility] [place] [address] [place] [address] XRay Report Signed Patient: Ela Padilla MR#: [id number] 0 : 1960 Acct:[id number] Age/Sex: 61 / F ADM Date: 01/01/22 Loc: XD Room: [facility] Attending Dr: Vazquez Villar MD Ordering Provider: [...] Mercy Salgado M.D.01/01/2022 4:46 PM Dictation Location: [place] [address] Transcribed By: [facility] 01/01/22 164 Dictated By: Mercy Salgado MD 01/01/22 164 Signed By: 01/01/22 164 [facility] CBC Auto Differentialon 03-31-2018 Basophils (Bld) [#/Vol] 0.07 10*3/uL [place] Basophils/100 WBC (Bld) 1 % 0 - 2 % [place] Differential Type NOT REPORTED [place] Eosinophils (Bld) [#/Vol] 0.08 10*3/uL [place] Eosinophils/100 WBC (Bld) 1 % 1 - 4 % [place] Erythrocyte distribution width (RBC) [Ratio] 12.8 % 11.8 - 14.4 % [place] Hematocrit (Bld) [Volume fraction] 43.7 % 36.3 - 47.1 % [place] Hemoglobin (Bld) [Mass/Vol] 14.6 g/dL 11.9 - 15.1 g/dL [place] Immature granulocytes (Bld) [#/Vol] 10*3/uL [place] Immature granulocytes (Bld) [#/Vol] 0 % 0 [place] Interpretation and review of laboratory results Abnormal [place] Lymphocytes (Bld) [#/Vol] 1.92 10*3/uL [place] Lymphocytes/100 WBC (Bld) 27 % 24 - 43 % [place] MCH (RBC) [Entitic mass] 29.9 pg 25.2 - 33.5 pg [place] MCHC (RBC) [Mass/Vol] 33.4 g/dL 28.4 - 34.8 g/dL [place] MCV (RBC) [Entitic vol] 89.5 fL 82.6 - 102.9 fL [place] Monocytes (Bld) [#/Vol] 0.37 10*3/uL [place] Monocytes/100 WBC (Bld) 5 % 3 - 12 % [place] Platelet mean volume (Bld) [Entitic vol] 10.2 fL 8.1 - 13.5 fL [place] Platelets (Bld) [#/Vol] 255 10*3/uL [place] Platelets (Bld) [#/Vol] NOT REPORTED [place] RBC (Bld) [#/Vol] 4.88 10*6/uL 3.95 - 5.1 1 m/uL [place] RBC morphology finding Nom (Bld) NOT REPORTED [place] Segmented neutrophils/100 WBC (Bld) 66 % High 36 - 65 % [place] Segs Absolute 4.70 [place] WBC (Bld) [#/Vol] 0.0 10*3/uL 0.0 per 10 0 WBC [place] WBC (Bld) [#/Vol] 7.2 10*3/uL [place] WBC Morphology NOT REPORTED [place], [place] CBC with Diffon 04-27-2019 Abs. Basophil 0.07 k/uL Normal 0.00-0.20 [facility] Comment on above: Performed By: #### T EDUARD, HUA, CP #### [facility] [address] [place] [address] Cloud Software Engineer: Osmany Chow MD Abs.Imm.Granulocyte <0.03 Normal 0.00-0.30 [facility] Comment on above: Performed By: #### HUA DE OLIVEIRA, CP #### [facility] [address] [place] [id number] Cloud Software Engineer: Osmany Chow MD Abs.Neutrophil (Seg) 4.70 k/uL Normal 1.50-8.10 [facility] Comment on above: Performed By: #### HUA DE OLIVEIRA, CP #### [facility] [address] [place] [address] Cloud Software Engineer: Osmany Chow MD Basophils/100 WBC (Bld) 1 % Normal 0-2 [facility] Comment on above: Performed By: #### HUA DE OLIVEIRA, CP #### [address] [place] [id number] Cloud Software Engineer: Osmany Chow MD Eosinophils (Bld) [#/Vol] 0.08 10*3/uL Normal 0.00-0.44 [facility] Comment on above: Performed By: #### HUA DE OLIVEIRA, CP #### [address] [place] [id number] Cloud Software Engineer: Osmany Chow MD Eosinophils/100 WBC (Bld) 1 % Normal 1-4 [facility] Comment on above: Performed By: #### HUA DE OLIVEIRA, CP #### [address] [place], [facility] Cloud Software Engineer: Osmany Chow MD Erythrocyte distribution width (RBC) [Ratio] 12.8 % Normal 11.8-14.4 [facility] Comment on above: Performed By: #### HUA DE OLIVEIRA, CP #### [address] [place] [id number] Cloud Software Engineer: Osmany Chow MD Hematocrit (Bld) [Volume fraction] 43.7 % Normal 36.3-47.1 [facility] Comment on above: Performed By: #### HUA DE OLIVEIRA, CP #### [facility] [address] [place] [id number] Cloud Software Engineer: Osmany Chow MD Hemoglobin (Bld) [Mass/Vol] 14.6 g/dL Normal 11.9-15.1 [facility] Comment on above: Performed By: #### HUA DE OLIVEIRA, CP #### [facility] [address] [place], [facility] Cloud Software Engineer: Osmany Cohw MD Immature granulocytes (Bld) [#/Vol] 0 % Normal 0 [facility] Comment on above: Performed By: #### HUA DE OLIVEIRA, CP #### [address] [place] [id number] Cloud Software Engineer: Osmany Chow MD Lymphocytes (Bld) [#/Vol] 1.92 10*3/uL Normal 1.10-3.70 [facility] Comment on above: Performed By: #### HUA DE OLIVEIRA, CP #### [address] [place] [id number] Cloud Software Engineer: Osmany Chow MD Lymphocytes/100 WBC (Bld) 27 % Normal 24-43 [facility] Comment on above: Performed By: #### HUA DEO LIVEIRA, CP #### [address] [place], [facility] Cloud Software Engineer: Osmany Chow MD MCH (RBC) [Entitic mass] 29.9 pg Normal 25.2-33.5 [facility] Comment on above: Performed By: #### HUA DE OLIVEIRA, CP #### [facility] [address] [place] [address] Cloud Software Engineer: Osmany Chow MD MCHC (RBC) [Mass/Vol] 33.4 g/dL Normal 28.4-34.8 [facility] Comment on above: Performed By: #### T HUA CHAPA, CP #### [facility] [address] [place], [place] [address] Cloud Software Engineer: Osmany Chow MD MCV (RBC) [Entitic vol] 89.5 fL Normal 82.6-102.9 [facility] Comment on above: Performed By: #### T HUA CHAPA, CP #### [facility] [address] [place], [place] [address] Cloud Software Engineer: Osmany Chow MD Monocytes (Bld) [#/Vol] 0.37 10*3/uL Normal 0.10-1.20 [facility] Comment on above: Performed By: #### HUA DE OLIVEIRA, CP #### [address] [place], [place] [address] Cloud Software Engineer: Osmany Chow MD Monocytes/100 WBC (Bld) 5 % Normal 3-12 [facility] Comment on above: Performed By: #### HUA DE OLIVEIRA, CP #### [address] [place], [place] [address] Cloud Software Engineer: Osmany Chow MD Neutrophil (Seg) 66 % High 36-65 [facility] Comment on above: Performed By: #### HUA DE OLIVEIRA, CP #### [facility] [address] [place], [place] [address] Cloud Software Engineer: Osmany Chow MD NRBC Automated 0.0 per 100 WBC Normal 0.0 [facility] Comment on above: Performed By: #### HUA DE OLIVEIRA, CP #### [facility] [facility] [address] [place], [facility]83 [employer] Software Engineer: Osmany Chow MD Platelet mean volume (Bld) [Entitic vol] 10.2 fL Normal 8.1-13.5 [facility] Comment on above: Performed By: #### HUA DE OLIVEIRA, CP #### [facility] [address] [place], [place] [id number] Cloud Software Engineer: Osmany Chow MD Platelets (Bld) [#/Vol] 255 10*3/uL Normal 138-453 [facility] Comment on above: Performed By: #### T HUA CHAPA, CP #### [facility] [address] [place], [place] [id number] Cloud Software Engineer: Osmany Chow MD RBC (Bld) [#/Vol] 4.88 10*6/uL Normal 3.95-5.11 [facility] Comment on above: Performed By: #### T HUA CHAPA, CP #### [facility] [address] [place], [facility]83 Cloud Software Engineer: Osmany Chow MD WBC (Bld) [#/Vol] 7.2 10*3/uL Normal 3.5-11.3 [facility] Comment on above: Performed By: #### T HUA CHAPA, CP #### [facility] [address] [place], [facility]83 Cloud Software Engineer: Osmany Chow MD Auto Diff Performed NOT REPORTED Normal [facility] Comment on above: Performed By: #### T HUA CHAPA, CP #### [facility] [address] [place], [facility]83 Cloud Software Engineer: Osmany Chow MD Platelets (Bld) [#/Vol] NOT REPORTED Normal [facility] Comment on above: Performed By: #### T HUA CHAPA, CP #### [facility] [address] [place], [place] [id number] Cloud Software Engineer: Osmany Chow MD RBC morphology finding Nom (Bld) NOT REPORTED Normal [facility] Comment on above: Performed By: #### T HUA CHAPA, CP #### [facility] [address] [place], [facility]83 Cloud Software Engineer: Osmany Chow MD WBC Morphology NOT REPORTED Normal [facility] Comment on above: Performed By: #### T HUA CHAPA, CP #### [facility] [address] [place] [address] [employer] Software Engineer: Osmany Chow MD CT HEAD WO CONTRASTon [...] Mireya Liu MD 04/27/19 Final result Normal [facility] CT Head WO Contraston 2018 No acute intracrania l abnormality. [facility]- [place], [place] Vladimir, Mhpn Incoming Radiant Results From [employer] - 04/27/2019 3:57 PM EDT EXAMINATION: CT [...] soft tissues. IMPRESSION: No acute intracranial abnormality. [facility] CT OF T HE HEAD WITHOUT [...] of the visualized skull or soft tissues. [facility] Metabolic Profon 2018 (cont.) Normal [facility] Comment on above: Result Comment: Aver age GFR for 60-69 years old: 85 mL/min/1.73sq m Chronic Kidney Disease: <60 mL/min/1.73sq m Kidney failure: <15 mL/min/1.73sq m eGFR calculated using average adult body mass. Additional eGFR calculator available at: http://www.[employer].com/multiple_crcl_2012.htm Performed By: #### T HUA CHAPA CP #### [facility] [address] [place] [id number] [employer] Software Engineer: Osmany Chow MD Albumin [Mass/Vol] 4.6 g/dL Normal 3.5-5.2 [facility] Comment on above: Performed By: #### T HUA CHAPA CP #### [facility] [address] [place], [place] [id number] Cloud Software Engineer: Osmany Chow MD Albumin/Globulin [Mass ratio] 1.4 {ratio} Normal 1.0-2.5 [facility] Comment on above: Performed By: #### T HUA CHAPA, CP #### [facility] [address] [place] [id number] Cloud Software Engineer: Osmany Chow MD Alkaline Phos 129 U/L High 35-104 [facility] Comment on above: Performed By: #### T HUA CHAPA, CP #### [facility] [address] [place], [place] [id number] Cloud Software Engineer: Osmany Chow MD ALT [Catalytic activity/Vol] 13 U/L Normal 5-33 [facility] Comment on above: Performed By: #### T HUA CHAPA, CP #### [facility] [address] [place], [place] [id number] Cloud Software Engineer: Osmany Cohw MD Anion gap [Moles/Vol] 20 mmol/L High 9-17 [facility] Comment on above: Performed By: #### T HUA CHAPA, CP #### [facility] [address] [place], [place] [id number] Cloud Software Engineer: Osmany Chow MD AST [Catalytic activity/Vol] 16 U/L Normal <32 [facility] Comment on above: Performed By: #### T HUA CHAPA, CP #### [facility] [address] [place], [place] [id number] Cloud Software Engineer: Osmany Chow MD Bilirubin Ql (U) 0.36 mg/dL Normal 0.3-1.2 [facility] Comment on above: Performed By: #### T HUA CHAPA, CP #### [facility] [address] [place], [place] [id number] Cloud Software Engineer: Osmany Chow MD BUN/CRE Ratio 9 Normal 9-20 [facility] Comment on above: Performed By: #### T UHA CHAPA, CP #### [facility] [address] [place], [place] [id number] Cloud Software Engineer: Osmany Chow MD Calcium [Mass/Vol] 9.7 mg/dL Normal 8.6-10.4 [facility] Comment on above: Performed By: #### T HUA CHAPA, CP #### [facility] [address] [place], [place] [id number] Cloud Software Engineer: Osmany Chow MD Chloride [Moles/Vol] 96 mmol/L Low 98-107 [facility] Comment on above: Performed By: #### T HUA CHAPA, CP #### [facility] [address] [place], [place] [id number] Cloud Software Engineer: Osmany Chow MD CO2 [Moles/Vol] 23 mmol/L Normal 20-31 [facility] Comment on above: Performed By: #### T HUA CHAPA, CP #### [facility] [address] [place], [place] [id number] Cloud Software Engineer: Osmany Chow MD Creatinine [Mass/Vol] 1.17 mg/dL High 0.50-0.90 [facility] Comment on above: Performed By: #### T HUA CHAPA, CP #### [facility] [address] [place], [place] [id number] Cloud Software Engineer: Osmany Chow MD GFR, Amer 57 mL/min Low >60 [facility] Comment on above: Performed By: #### T HUA CHAPA, CP #### [facility] [address] [place] [address] Cloud Software Engineer: Osmany Chow MD GFR,non Amer 47 mL/min Low >60 [facility] Comment on above: Performed By: #### T HUA CHAPA, CP #### [facility] [address] [place], [place] [id number] Cloud Software Engineer: Osmany Chow MD Glucose [Mass/Vol] 185 mg/dL High 70-99 [facility] Comment on above: Performed By: #### T HUA CHAPA, CP #### [facility] [address] [place], [place] [id number] Cloud Software Engineer: Osmany Chow MD Potassium [Moles/Vol] 4.1 mmol/L Normal 3.7-5.3 [facility] Comment on above: Performed By: #### T HUA CHAPA, CP #### [facility] [address] [place], [place] [id number] Cloud Software Engineer: Osmany Chow MD Protein [Mass/Vol] 7.8 g/dL Normal 6.4-8.3 [facility] Comment on above: Performed By: #### T HUA CHAPA, CP #### [facility] [address] [place], [place] [id number] Cloud Software Engineer: Osmany Chow MD Sodium [Moles/Vol] 139 mmol/L Normal 135-144 [facility] Comment on above: Performed By: #### T HUA CHAPA, CP #### [address] [place], [place] [id number] Cloud Software Engineer: Osmany Chow MD Staging: Normal [facility] Comment on above: Result Comment: Stag e 1: Some kidney damage normal GFR Stage 2: Mild kidney damage GFR 60-89 Stage 3: Moderate kidney damage GFR 30-59 Stage 4: Severe kidney damage GFR 15-29 Stage 5: Severe kidney damage GFR <15 ESRD - chronic treatment by dialysis or transplant Performed By: #### T HUA CHAPA, CP #### [facility] [address] [place], [place] [id number] Cloud Software Engineer: Osmany Chow MD Urea nitrogen [Mass/Vol] 11 mg/dL Normal 8-23 [facility] Comment on above: Performed By: #### T EDUARD, CDP, CP #### [facility] [address] [place] [address] Cloud Software Engineer: Osmany Chow MD Comprehensive Metabolic Pane [facility] 04-27-2019 Albumin [Mass/Vol] 4.6 g/dL 3.5 - 5.2 g/dL [place], [place] Albumin/Globulin [Mass ratio] 1.4 {ratio} [place] ALP [Catalytic activity/Vol] 129 U/L High 35 - 104 U/L [place] ALT [Catalytic activity/Vol] 13 U/L 5 - 33 U/L [place] Anion gap [Moles/Vol] 20 mmol/L High 9 - 17 mmol/L [place] AST [Catalytic activity/Vol] 16 U/L <32 [place] Bilirubin Ql (U) 0.36 mg/dL 0.3 - 1.2 mg/dL [place] Bun/Cre Ratio 9 [place], [place] Calcium [Mass/Vol] 9.7 mg/dL 8.6 - 10. 4 mg/dL [place] Chloride [Moles/Vol] 96 mmol/L Low 98 - 10 7 mmol/L [place] CO2 [Moles/Vol] 23 mmol/L 20 - 31 mmol/L [place] Creatinine [Mass/Vol] 1.17 mg/dL High 0.5 - 0.9 mg/dL [place] GFR 57 mL/min Low >60 [place] GFR Non- 47 mL/min Low >60 [place] Glucose [Mass/Vol] 185 mg/dL High 70 - 99 mg/dL [place], [place] Interpretation and review of laboratory results Abnormal [place] Potassium [Moles/Vol] 4.1 mmol/L 3.7 - 5.3 mmol/L [place] Protein [Mass/Vol] 7.8 g/dL 6.4 - 8.3 g/dL [place] Sodium [Moles/Vol] 139 mmol/L 135 - 144 mmol/L [place] Urea nitrogen [Mass/Vol] 11 mg/dL 8 - 23 mg/dL [place] Metabolic Panelon 04-27-2019 GFR/1.73 sq M predicted among non-blacks MDRD (S/P/Bld) [Vol rate/Area] [place] Comment on above: Stage 1: [...] body mass. Additional eGFR calculator available at: http://www.[employer]/multiple_crcl_2012.htm Troponinon 04-27-2019 Troponin I.cardiac [Mass/Vol] ng/mL Normal <0.03 [facility] Comment on above: Result Comment: Trop onin T results cannot be compared to Troponin-I results. Performed By: #### T HUA CHAPA, CP #### [facility] [address] [place] [address] Cloud Software Engineer: Osmany Chow MD Troponin I.cardiac [Mass/Vol] Normal [facility] Comment on above: Result Comment: Refe [...] By: #### T HUA CHAPA, CP #### [facility] [address] [place] [address] Cloud Software Engineer: Osmany Chow MD Troponin I.cardiac [Mass/Vol] NOT REPORTED Normal 0-14 [facility] Comment on above: Performed By: #### T EDUARD, HUA, CP #### [facility] [address] [place] [address] Cloud Software Engineer: Osamny Chow MD Troponin I.cardiac [Mass/Vol] [place] Comment on above: Reference Range: [...] diagnosis. Troponin T.cardiac [Mass/Vol] ug/L <0.03 ng/mL [place] Comment on above: Troponin T results c annot be compared to Troponin-I results. Troponin, High Sensitivity NOT REPORTED 0 - 14 ng/L [place] Vital Signs Date Time Vital Sign Value Performing Clinician Facility 06-01-2024 13:37-0500 Diastolic blood pressure 60 mm[Hg] [facility] 06-01-2024 13:37-0500 Heart rate 79 /min [facility] 06-01-2024 13:37-0500 SaO2% (BldA) [Mass fraction] 97 % [facility] 06-01-2024 13:37-0500 Systolic blood pressure 102 mm[Hg] [facility] 05-14-2024 15:56-0400 Body height 168.9 cm Vinh Ray RN PAR[employer]GAL Work Phone: [facility] 05-14-2024 15:56-0400 Body mass index (BMI) [Ratio] 28.94 kg/m2 Vinh Ray RN [employer] Work Phone: [facility] 05-14-2024 15:56-0400 Body temperature 98.8 [degF] Vinh Ray RN PAR[employer]GAL Work Phone: [facility] 05-14-2024 15:56-0400 Body weight 82.56 kg Vinh Ray RN [employer] Work Phone: [facility] 05-14-2024 15:56-0400 Diastolic blood pressure 84 mm[Hg] Vinh Ray RN [employer]GAL Work Phone: [facility] 05-14-2024 15:56-0400 Heart rate 87 /min Vinh Ray RN PAR[employer]GAL Work Phone: [facility] 05-14-2024 15:56-0400 SaO2% (BldA) [Mass fraction] 97 % Vinh Ray RN PAR[employer]GAL Work Phone: [facility] 05-14-2024 15:56-0400 Systolic blood pressure 112 mm[Hg] Vinh Ray RN PAR[employer]GAL Work Phone: [facility] 05-13-2024 14:01-0400 Diastolic blood pressure 64 mm[Hg] [facility] 05-13-2024 14:01-0400 Heart rate 97 /min [facility] 05-13-2024 14:01-0400 SaO2% (BldA) [Mass fraction] 97 % [facility] 05-13-2024 14:01-0400 Systolic blood pressure 102 mm[Hg] [facility] 04-14-2024 15:27-0400 Diastolic blood pressure 68 mm[Hg] [facility] 04-14-2024 15:27-0400 Heart rate 91 /min [facility] 04-14-2024 15:27-0400 SaO2% (BldA) [Mass fraction] 97 % [facility] 04-14-2024 15:27-0400 Systolic blood pressure 118 mm[Hg] [facility] 03-16-2024 13:29-0400 Diastolic blood pressure 70 mm[Hg] [facility] 03-16-2024 13:29-0400 Heart rate 72 /min [facility] 03-16-2024 13:29-0400 SaO2% (BldA) [Mass fraction] 97 % [facility] 03-16-2024 13:29-0400 Systolic blood pressure 122 mm[Hg] [facility] 02-26-2024 14:41-0400 Diastolic blood pressure 70 mm[Hg] [facility] 02-26-2024 14:41-0400 Heart rate 71 /min [facility] 02-26-2024 14:41-0400 SaO2% (BldA) [Mass fraction] 96 % [facility] 02-26-2024 14:41-0400 Systolic blood pressure 110 mm[Hg] [facility] 02-05-2024 14:09-0400 Diastolic blood pressure 80 mm[Hg] [facility] 02-05-2024 14:09-0400 Heart rate 80 /min [facility] 02-05-2024 14:09-0400 SaO2% (BldA) [Mass fraction] 97 % [facility] 02-05-2024 14:09-0400 Systolic blood pressure 130 mm[Hg] [facility] 01-07-2024 15:12-0400 Body height 165.1 cm [facility] 01-07-2024 15:12-0400 Diastolic blood pressure 62 mm[Hg] [facility] 01-07-2024 15:12-0400 Systolic blood pressure 108 mm[Hg] [facility] 12-11-2023 14:02-0400 Diastolic blood pressure 80 mm[Hg] [facility] 12-11-2023 14:02-0400 Heart rate 75 /min [facility] 12-11-2023 14:02-0400 SaO2% (BldA) [Mass fraction] 96 % [facility] 12-11-2023 14:02-0400 Systolic blood pressure 120 mm[Hg] [facility] 11-18-2023 15:28-0400 Diastolic blood pressure 80 mm[Hg] [facility] 11-18-2023 15:28-0400 Heart rate 83 /min [facility] 11-18-2023 15:28-0400 SaO2% (BldA) [Mass fraction] 98 % [facility] 11-18-2023 15:28-0400 Systolic blood pressure 110 mm[Hg] [facility] 05-27-2023 13:45-0400 Body height 165.1 cm Vazquez Villar Other [employer] Other 05-27-2023 13:45-0400 Diastolic blood pressure 80 mm[Hg] Vazquez Jian Other [employer] Other 05-27-2023 13:45-0400 SaO2% (BldA) [Mass fraction] 97 % Vazquez Jian Other [employer] Other 05-27-2023 13:45-0400 Systolic blood pressure 118 mm[Hg] Vazquez Jian Other [employer] Other 04-29-2023 13:30-0400 Body height 165.1 cm Vazquez Jian Other [employer] Other 04-29-2023 13:30-0400 Diastolic blood pressure 72 mm[Hg] Vazquez Jian Other [employer] Other 04-29-2023 13:30-0400 Systolic blood pressure 120 mm[Hg] Vazquez Jian Other [employer] Other 04-04-2023 14:30-0400 Diastolic blood pressure 70 mm[Hg] Vazquez Jian Other [employer] Other 04-04-2023 14:30-0400 SaO2% (BldA) [Mass fraction] 98 % Vazquez Jian Other [employer] Other 04-04-2023 14:30-0400 Systolic blood pressure 120 mm[Hg] Vazquez Jian Other [employer] Other 03-05-2023 11:00-0400 Body weight 75.84 kg Vazquez Jian Other [employer] Other 11-20-2022 12:15-0400 Body weight 73.94 kg Vazquez Jian Other [employer] Other 11-20-2022 12:15-0400 Diastolic blood pressure 84 mm[Hg] Vazquez Jian Other [employer] Other 11-20-2022 12:15-0400 SaO2% (BldA) [Mass fraction] 97 % Vazquez Jian Other [employer] Other 11-20-2022 12:15-0400 Systolic blood pressure 126 mm[Hg] Vazquez Jian Other [employer] Other 11-05-2022 15:15-0400 Body weight 77.02 kg Vazquez Jian Other [employer] Other 11-05-2022 15:15-0400 Diastolic blood pressure 60 mm[Hg] Vazquez Jian Other [employer] Other 11-05-2022 15:15-0400 SaO2% (BldA) [Mass fraction] 98 % Vazquez Jian Other [employer] Other 11-05-2022 15:15-0400 Systolic blood pressure 100 mm[Hg] Vazquez Jian Other [employer] Other 10-17-2022 15:30-0400 Body weight 77.52 kg Vazquez Jian Other [employer] Other 10-17-2022 15:30-0400 Diastolic blood pressure 70 mm[Hg] Vazquez Jian Other [employer] Other 10-17-2022 15:30-0400 SaO2% (BldA) [Mass fraction] 98 % Vazquez Villar Other [employer] Other 10-17-2022 15:30-0400 Systolic blood pressure 118 mm[Hg] Vazquez Villar Other [employer] Other 09-26-2022 13:30-0500 Body weight 76.75 kg Vazquez Villar Other [employer] Other 09-26-2022 13:30-0500 Diastolic blood pressure 88 mm[Hg] Vazquez Villar Other [employer] Other 09-26-2022 13:30-0500 SaO2% (BldA) [Mass fraction] 95 % Vazquez Villar Other [employer] Other 09-26-2022 13:30-0500 Systolic blood pressure 142 mm[Hg] Vazquez Villar Other [employer] Other 08-29-2022 12:45-0500 Body weight 76.66 kg Sheela Woodall Other [employer] Other 08-29-2022 12:45-0500 Diastolic blood pressure 60 mm[Hg] Sheela Woodall Other [employer] Other 08-29-2022 12:45-0500 SaO2% (BldA) [Mass fraction] 96 % Sheela Woodall Other [employer] Other 08-29-2022 12:45-0500 Systolic blood pressure 110 mm[Hg] Sheela Woodall Other [employer] Other 08-06-2022 14:00-0500 Body weight 76.2 kg Vazquezkeanu Villar Other [employer] Other 08-06-2022 14:00-0500 Diastolic blood pressure 80 mm[Hg] Vazquez Jian Other [employer] Other 08-06-2022 14:00-0500 SaO2% (BldA) [Mass fraction] 99 % Vazquez Jian Other [employer] Other 08-06-2022 14:00-0500 Systolic blood pressure 126 mm[Hg] Vazquez Jian Other [employer] Other 07-04-2022 16:15-0500 Diastolic blood pressure 80 mm[Hg] Vazquez Jian Other [employer] Other 07-04-2022 16:15-0500 SaO2% (BldA) [Mass fraction] 97 % Vazquez Jian Other [employer] Other 07-04-2022 16:15-0500 Systolic blood pressure 120 mm[Hg] Vazquez Jian Other [employer] Other 03-20-2022 11:30-0400 Body weight 79.38 kg Vazquez Jian Other [employer] Other 03-20-2022 11:30-0400 Diastolic blood pressure 76 mm[Hg] Vazquez Jian Other [employer] Other 03-20-2022 11:30-0400 SaO2% (BldA) [Mass fraction] 99 % Vazquez Jian Other [employer] Other 03-20-2022 11:30-0400 Systolic blood pressure 120 mm[Hg] Vazquez Jian Other [employer] Other 02-05-2022 15:15-0400 Diastolic blood pressure 80 mm[Hg] Vazquez Jian Other [employer] Other 02-05-2022 15:15-0400 SaO2% (BldA) [Mass fraction] 99 % Vazquez Jian Other [employer] Other 02-05-2022 15:15-0400 Systolic blood pressure 138 mm[Hg] Vazquez Jian Other [employer] Other 01-19-2022 11:45-0400 Body weight 77.57 kg Vazquez Villar Other [employer] Other 01-19-2022 11:45-0400 Diastolic blood pressure 70 mm[Hg] Vazquez Jian Other [employer] Other 01-19-2022 11:45-0400 SaO2% (BldA) [Mass fraction] 99 % Vazquez Villar Other [employer] Other 01-19-2022 11:45-0400 Systolic blood pressure 118 mm[Hg] Vazquez Jian Other [employer] Other 12-04-2021 15:30-0400 Body weight 77.66 kg Vazquez Villar Other [employer] Other 12-04-2021 15:30-0400 Diastolic blood pressure 76 mm[Hg] Vazquez Jian Other [employer] Other 12-04-2021 15:30-0400 SaO2% (BldA) [Mass fraction] 96 % Vazquez Villar Other [employer] Other 12-04-2021 15:30-0400 Systolic blood pressure 118 mm[Hg] Vazquez Jian Other [employer] Other 11-06-2021 12:30-0400 Body weight 77.02 kg Vazquez Villar Other [employer] Other 11-06-2021 12:30-0400 Diastolic blood pressure 60 mm[Hg] Vazquez Jian Other [employer] Other 11-06-2021 12:30-0400 SaO2% (BldA) [Mass fraction] 98 % Vazquez Villar Other [employer] Other 11-06-2021 12:30-0400 Systolic blood pressure 110 mm[Hg] Vazquez Jian Other [employer] Other 10-19-2021 16:45-0400 Body weight 76.93 kg Vazquez Villar Other [employer] Other 10-19-2021 16:45-0400 Diastolic blood pressure 80 mm[Hg] Vazquez Jian Other [employer] Other 10-19-2021 16:45-0400 SaO2% (BldA) [Mass fraction] 98 % Vazquez Villar Other [employer] Other 10-19-2021 16:45-0400 Systolic blood pressure 140 mm[Hg] Vazquez Villar Other [employer] Other 10-02-2021 14:30-0500 Body weight 77.47 kg Vazquez Villar Other [employer] Other 10-02-2021 14:30-0500 Diastolic blood pressure 82 mm[Hg] Vazquez Romanoky Other [employer] Other 10-02-2021 14:30-0500 SaO2% (BldA) [Mass fraction] 99 % Vazquez Villar Other [employer] Other 10-02-2021 14:30-0500 Systolic blood pressure 110 mm[Hg] Vazquez Romanoky Other [employer] Other 04-27-2019 17:30-0400 BP Diastolic 67 mm[Hg] Frances [employer] , [place] 04-27-2019 17:30-0400 BP Systolic 125 mm[Hg] [facility] [place] 04-27-2019 17:30-0400 Pulse (Heart Rate) 66 /min [facility] [place] 04-27-2019 14:47-0400 BMI (Body Mass Index) 25.02 kg/m2 Frances [employer] [place] 04-27-2019 14:47-0400 Body Temperature 97.5 [degF] Frances [employer] [facility], [place] 04-27-2019 14:47-0400 Body weight 70.31 kg Frances [employer] [place] 04-27-2019 14:47-0400 Pulse Oximetry 99 % Frances [employer] [place] , [place] 04-27-2019 14:47-0400 Respiratory Rate 16 /min [facility] [place] Encounters Encounter Date Encounter Type Care Provider Facility Start: 06-11-2024 End: 06-11-2024 ambulatory [facility] Work Phone: Start: 06-11-2024 End: 06-11-2024 Patient encounter procedure [facility] Physician [facility] Work Phone: Start: 06-01-2024 End: 06-01-2024 ambulatory [facility] Work Phone: Start: 06-01-2024 End: 06-01-2024 Patient encounter procedure [facility] Physician [facility] Work Phone: Start: 05-21-2024 End: 05-21-2024 ambulatory [facility] Work Phone: Start: 05-21-2024 End: 05-21-2024 Patient encounter procedure [facility] Work Phone: Start: 05-21-2024 Non-patient / Non-visit [facility] Work Phone: Start: 05-14-2024 End: 05-14-2024 Office outpatient visit 25 minutes Vinh Ray RN PAR[place]GAL Work Phone: [facility] Comment on above: Acute non-recurrent pansinusitis (Primary Dx) Start: 05-14-2024 End: 05-14-2024 ambulatory VINH RAY Not Available Start: 05-13-2024 End: 05-13-2024 ambulatory [facility] Work Phone: Start: 05-13-2024 End: 05-13-2024 Patient encounter procedure [facility] Physician [facility] Work Phone: Start: 04-14-2024 End: 04-14-2024 ambulatory [facility] Work Phone: Start: 04-14-2024 End: 04-14-2024 Patient encounter procedure [facility] Work Phone: Start: 03-26-2024 Non-patient / Non-visit [facility] Physician [facility] Work Phone: Start: 03-26-2024 End: 03-26-2024 ambulatory [facility] Work Phone: Start: 03-26-2024 End: 03-26-2024 Patient encounter procedure [facility] Physician [facility] Work Phone: Start: 03-16-2024 End: 03-16-2024 ambulatory [facility] Work Phone: Start: 03-16-2024 End: 03-16-2024 Patient encounter procedure [facility] Physician [facility] Work Phone: Start: 03-12-2024 End: 03-12-2024 ambulatory VINH RAY Not Available Start: 03-05-2024 Non-patient / Non-visit [facility] Physician [facility] Work Phone: Start: 03-05-2024 End: 03-05-2024 ambulatory [facility] Work Phone: Start: 03-05-2024 End: 03-05-2024 [facility] [facility] Work Phone: Start: 02-26-2024 End: 02-26-2024 ambulatory [facility] Work Phone: Start: 02-26-2024 End: 02-26-2024 Patient encounter procedure [facility] Physician [facility] Work Phone: Start: 02-13-2024 Non-patient / Non-visit [facility] Physician [facility] Work Phone: Start: 02-13-2024 End: 02-13-2024 ambulatory [facility] Work Phone: Start: 02-13-2024 End: 02-13-2024 Patient encounter procedure [facility] Physician [facility] Work Phone: Start: 02-05-2024 End: 02-05-2024 ambulatory [facility] Work Phone: Start: 02-05-2024 End: 02-05-2024 Patient encounter procedure [facility] Work Phone: Start: 01-07-2024 End: 01-07-2024 ambulatory [facility] Work Phone: Start: 01-07-2024 End: 01-07-2024 Patient encounter procedure [facility] Work Phone: Start: 12-24-2023 End: 12-24-2023 ambulatory [facility] Work Phone: Start: 12-24-2023 End: 12-24-2023 Patient encounter procedure [facility] Physician [facility] Work Phone: Start: 12-11-2023 End: 12-11-2023 Patient encounter procedure [facility] Work Phone: Start: 12-03-2023 End: 12-03-2023 ambulatory [facility] Work Phone: Start: 12-03-2023 End: 12-03-2023 Patient encounter procedure [facility] Physician [facility] Work Phone: Start: 12-03-2023 Non-patient / Non-visit [facility] Physician [facility] Work Phone: Start: 11-18-2023 End: 11-18-2023 ambulatory [facility] Work Phone: Start: 11-18-2023 End: 11-18-2023 Patient encounter procedure [facility] Work Phone: Start: 09-20-2023 End: 09-20-2023 ambulatory [facility] WILSON Not Available Start: 07-17-2023 End: 07-17-2023 ambulatory JOHNY GALAN Not Available Start: 06-18-2023 End: 06-18-2023 ambulatory [facility] Not Available Start: 05-27-2023 End: 05-27-2023 ambulatory Vazquez Jian Other [employer] Other Start: 05-27-2023 Office outpatient vi sit 15 minutes Vazquez Jian [facility] Start: 05-09-2023 (PROC) PROCEDURE Vazquezkeanu [facility] [place] Start: 05-09-2023 End: 05-09-2023 ambulatory Avzquez Jian Other [employer] Other Start: 04-29-2023 End: 04-29-2023 ambulatory Vazquez Jian Other [employer] Other Start: 04-29-2023 Office outpatient vi sit 25 minutes Vazquez Jian [facility] Start: 04-04-2023 End: 04-04-2023 ambulatory Vazquez Jian Other [employer] Other Start: 04-04-2023 Office outpatient vi sit 15 minutes Vazquez Jian [facility] Start: 03-14-2023 (PROC) PROCEDURE Vazquezkeanu Gibbons [facility] [place] Start: 03-14-2023 End: 03-14-2023 ambulatory Vazquez Jian Other [employer] Other Start: 03-05-2023 End: 03-05-2023 ambulatory Vazquez Jian Other [employer] Other Start: 03-05-2023 Office outpatient vi sit 25 minutes Vazquez Jian [facility] Start: 02-26-2023 (PROC) PROCEDURE Vazquezkeanu [facility] [place] Start: 02-26-2023 End: 02-26-2023 ambulatory Vazquez Jian Other [employer] Other Start: 11-20-2022 End: 11-20-2022 ambulatory Vazquez Jian Other [employer] Other Start: 11-20-2022 Office outpatient vi sit 15 minutes Vazquez Jian [facility] Start: 11-05-2022 End: 11-05-2022 ambulatory Vazquez Jian Other [employer] Other Start: 11-05-2022 Office outpatient vi sit 25 minutes Vazquez Jian [facility] Start: 10-25-2022 (PROC) PROCEDURE Vazquezkeanu Villar [facility] Start: 10-25-2022 End: 10-25-2022 ambulatory Vazquez Jian Other [employer] Other Start: 10-17-2022 End: 10-17-2022 ambulatory Vazquez Jian Other [employer] Other Start: 10-17-2022 Office outpatient vi sit 25 minutes Vazquez Jian [facility] Start: 10-15-2022 End: 10-15-2022 ambulatory Rugen M [place] Facility:[facility] Start: 09-26-2022 End: 09-26-2022 ambulatory Vazquez Jian Other [employer] Other Start: 09-26-2022 Office outpatient vi sit 25 minutes Vazquez Jian [facility] Start: 08-29-2022 End: 08-29-2022 ambulatory Sheela Woodall Other [employer] Other Start: 08-29-2022 Office outpatient vi sit 15 minutes Sheela Woodall [facility] Start: 08-29-2022 Telephone encounter Vazquez Jian [facility] Start: 08-14-2022 (PROC) PROCEDURE Vazquezkeanu Villar [facility] Start: 08-14-2022 End: 08-14-2022 ambulatory Vazquezkeanu Villar Other [employer] Other Start: 08-06-2022 End: 08-06-2022 ambulatory Vazquez Jian Other [employer] Other Start: 08-06-2022 Office outpatient vi sit 25 minutes Vazquez Jian [facility] Start: 08-03-2022 End: 08-04-[address] MERCED BEAL Facility:[facility] Start: 07-19-2022 (PROC) PROCEDURE Vazquez Villar [facility] Start: 07-19-2022 End: 07-19-2022 ambulatory Vazquez Jian Other [employer] Other Start: 07-12-2022 End: 07-13-[address] JOHNY GALAN Facility:[facility] Start: 07-04-2022 End: 07-04-2022 ambulatory Vazquez Jian Other [employer] Other Start: 07-04-2022 Office outpatient vi sit 25 minutes Vazquez Jian [facility] Start: 06-26-2022 (Procedure) Short Vazquez Villar [facility] Start: 06-26-2022 End: 06-26-2022 ambulatory Vazquez Jian Other [employer] Other Start: 03-20-2022 End: 03-20-2022 ambulatory Vazquez Jian Other [employer] Other Start: 03-20-2022 Office outpatient vi sit 25 minutes Vazquez Jian [facility] Start: 02-05-2022 End: 02-05-2022 ambulatory Vazquez Jian Other [employer] Other Start: 02-05-2022 Office outpatient vi sit 15 minutes Vazquez Jian [facility] Start: 01-19-2022 End: 01-19-2022 ambulatory Vazquez Jian Other [employer] Other Start: 01-19-2022 Office outpatient vi sit 25 minutes Vazquez Jian [facility] Start: 01-01-2022 End: 01-01-2022 ambulatory Vazquez Edwige Villar Facility:[facility] Start: 01-01-2022 End: 01-01-2022 Patient encounter procedure MD Merced Beal Work Phone: [facility] Start: 12-04-2021 End: 12-04-2021 ambulatory Vazquezkeanu Villar Other [employer] Other Start: 12-04-2021 Office outpatient vi sit 25 minutes Vazquez Jian [facility] Start: 11-16-2021 (Procedure) Short Vazquez Villar [facility] Start: 11-16-2021 End: 11-16-2021 ambulatory Vazquez Jian Other [employer] Other Start: 11-06-2021 End: 11-06-2021 ambulatory Vazquez Jian Other [employer] Other Start: 11-06-2021 Office outpatient vi sit 25 minutes Vazquez Jian [facility] Start: 10-26-2021 (Procedure) Short Vazquez Villar [facility] Start: 10-26-2021 End: 10-26-2021 ambulatory Vazquez Jian Other [employer] Other Start: 10-19-2021 End: 10-19-2021 ambulatory Vazquez Jian Other [employer] Other Start: 10-19-2021 Office outpatient vi sit 25 minutes Vazquez Jian [facility] Start: 10-12-2021 (Procedure) Short Vazquez Villar [facility] Start: 10-12-2021 End: 10-12-2021 ambulatory Vazquez Villar Other [employer] Other Start: 10-02-2021 End: 10-02-2021 ambulatory Vazquez Villar Other [employer] Other Start: 10-02-2021 Office outpatient vi sit 25 minutes Vazquez Villar [facility] Start: 04-27-2019 Emergency department patient visit MERCED BEAL [facility] Start: 04-27-2019 End: 04-27-2019 Emergency department patient visit Frances Hurt Work Phone: [facility] ED Comment on above: Dizziness (Primary D x); Paresthesia Start: 02-28-2017 End: 03-01-2017 Ambulatory Patrick Coley Facility::[id number] Start: 04-04-2016 End: 04-05-2016 Ambulatory [place] Facility:[facility] Procedures Date Procedure Procedure Detail Performing Clinician Start: 08-26-2023 Mammography Vinh bird NP Work Phone: Start: 01-01-2022 Radiologic examinati on of knee MD Merced Beal Work Phone: Start: 04-27-2019 Ct head/brain w/o co ntrast material RUGEN EMIGDIO Start: 04-27-2019 ORTHOSTATIC BLOOD GA ESSURE AND PULSE RUGEN EMIGDIO Start: 04-27-2019 [...] Start: 04-27-2019 Assay of troponin quantitative Frances Hurt Work Phone: Start: 04-27-2019 Blood count complete auto&auto difrntl wbc Frances Hurt Work Phone: Start: 04-27-2019 Comprehensive metabo lic panel Frances Hurt Work Phone: Start: 04-27-2019 Ecg routine ecg w/le ast 12 lds w/i&r Frances Hurt Work Phone: Start: 08-22-2018 Colonoscopy Vinh bird NP Work Phone: Plan of Treatment Date Care Activity Detail Author Start: 08-22-2028 Screening for malignant neoplasm of colon [facility] Start: 03-16-2025 End: 03-16-2025 Patient encounter procedure 03/16/2025 11:30 AM EDT Office Visit [facility] [address] [facility] [address] [place] [id number] Vinh Ray NP [address] [place] [address] [place] [address] [facility] Start: 03-12-2025 Medicare Annual Wellness (AWV) Medicare Annual Wellness (AWV) [facility] Start: 08-26-2024 Screening for malignant neoplasm of breast Mammogram [facility] Start: 03-29-2024 Influenza vaccination Influenza Vaccine (#1) [facility] Start: 12-23-2023 Pneumococcal Vaccine: 65+ Years (2 of 2 - PCV) Pneumococcal Vaccine: 65+ Years (2 of 2 - PCV) [facility] Start: 03-29-2019 Influenza vaccination Flu vaccine (#1) [place] Start: 01-20-2018 Lipid screen Lipid screen [place] Start: 01-20-2015 Breast cancer screen Breast cancer screen [place] Start: 2008 Colon cancer screen colonoscopy Colon cancer screen colonoscopy [place] Start: 2008 Shingles Vaccine (1 of 2) Shingles Vaccine (1 of 2) [place] Start: 1988 Screening for malignant neoplasm of cervix [facility] Start: 12-23-1979 Cervical cancer screen Cervical cancer screen [place] Start: 12-23-1979 Screening for malignant neoplasm of cervix Pap Smear [facility] Start: 1977 DTaP/Tdap/Td vaccine (1 - Tdap) DTaP/Tdap/Td vaccine (1 - Tdap) [place] Start: 1973 HIV screen HIV screen [place] Start: 1958 Hepatitis C screen Hepatitis C screen [place], [place] Start: 1958 Screening for malignant neoplasm of colon [facility] EKG 12 Lead EKG 12 Lead ECG STAT 04/27/2019 2:47 PM EDT [place] Immunizations Immunization Date Immunization Notes Care Provider Patric jacobo 05-29-2023 influenza, injectabl e, quadrivalent, preservative free Vinh Ray RN [facility] Work Phone: [facility] Work Phone: 05-29-2023 influenza virus vaccine, unspecified formulation Vinh Ray RN [place] Work Phone: [facility] 08-03-2022 pneumococcal polysaccharide vaccine, 23 valent Vinh Ray RN [employer] Work Phone: [facility] 06-09-2022 Moderna Bivalent Booster Vaccination Vinh Ray RN [employer] Work Phone: [facility] 05-03-2022 Influenza, injectabl e, Madin Kidder Canine Kidney, preservative free, quadrivalent Vinh Ray RN [facility] Work Phone: [facility] 06-19-2021 influenza, injectabl e, quadrivalent, preservative free Vinh Ray RN [employer] Work Phone: [facility] 05-12-2020 influenza, injectabl e, quadrivalent, preservative free Vinh Ray RN [employer] Work Phone: [facility] 07-06-2019 tetanus toxoid, redu ray diphtheria toxoid, and acellular pertussis vaccine, adsorbed Vazquez Villar Other [facility] 05-25-2019 influenza, injectabl e, madin ilan canine kidney, preservative free Vinh [place] RN [employer] Work Phone: [facility] 04-28-2019 influenza, injectabl e, quadrivalent, preservative free Vinh Flor RN [employer] Work Phone: [facility] 05-07-2017 seasonal influenza, intradermal, preservative free Vinh [place] RN [employer] Work Phone: [facility] 05-09-2016 influenza virus vaccine, unspecified formulation [facility] 05-09-2016 influenza, injectabl e, quadrivalent, contains preservative Vinh [place] RN [employer] Work Phone: [facility] 05-09-2016 influenza, injectable,quadrivalent , preservative free, pediatric Vazquez Villar Other [employer] Other Payers Date Payer Category Payer Medicaid [place]ICA[place] [id number] 2022 Self-pay [id number] 2021 Medicare (Managed Care) [employer] Member Subscriber Plan / Payer (Effective 2021-Present) Name: Ela Padilla Relation to Subscriber: Self Name: Ela Padilla Payer ID: Not on file Group ID: [id number] Type: Not on file Address: [address] [place] [id number] 2019 Private Health Insurance [id number] 2019 Private Health Insurance FRACISCO YAP xxxxxxxxxx 2019-Present [phone] [address] [place] [address] xxxxxxxxxx [id number] 2017 Medicare [id number] 2017 Medicare MEDICARE MEDICAR E PART A AND B xxxxxxxxxxx 2017-Present [phone] [place] [address] xxxxxxxxxxx [id number] 1959 Medicaid [id number] 1959 Unknown [id number] 1958 Unknown [id number] 1958 Unknown [id number] 1958 Unknown [id number] 1958 Unknown [id number]. 1259 1958 Unknown [id number] 1259 1958 Unknown [id number] 1259 1958 Unknown [id number] 1259 1958 Unknown [id number]. 1259 Medicare Angie MediBlue Dual Adv [id number] Medicare [id number] Unknown [id number] Unknown [id number] Unknown [id number] 531 Social History Date Type Detail Facility Start: 04-27-2019 End: 02-12-2023 Tobacco smoking status NHIS Never smoker [facility] Start: 04-27-2019 End: 05-14-2024 Alcohol intake No [facility] Sex Assigned At Not on file [place], [place] Start: 1960 Sex Assigned At Female [facility] Start: 02-12-2023 Tobacco use and exposure Smokeless tobacco non-user [facility] Start: 05-14-2024 Alcoholic beverage intake Lifetime non-drinker (finding) [facility] Start: 03-12-2024 End: 05-14-2024 History of Social function [facility] How often do you nee d to have someone help you when you read instructions, pamphlets, or other written material from your doctor or pharmacy [SILS] Never [facility] How often to you hav e a drink containing alcohol? Never [facility] Do you feel stress - tense, restless, nervous, or anxious, or unable to sleep at night because your mind is troubled all the time - these days [OSQ] Not at all [facility] Start: 04-23-2023 Alcohol Comment Caffeine intake tea [facility] Start: 02-11-2023 Gender identity Identifies as female gender (finding) [facility] Start: 02-11-2023 Sexual orientation Heterosexual (finding) [facility] Tobacco smoking stat us VTIS Unknown if ever smoked [facility] Work Phone: Start: 06-11-2024 Sex Female (finding) [facility] Clinical Notes 11-07-2015 to 05-14-2024 Vinh Ray, RN [facility] - 05/14/2024 4:00 PM EDT Note Date & Type Note Facility 05-14-2024 History of Presen t illness Narrative Images from the original note were not included. Subjective Patient ID: ela Padilla is a 63 y.o. female who presents for URI. Started Saturday with runny clogged nose , sore throat sinus pressure, headaches, tightness in chest , coughing , yellow phlegm right ear pain Pt did take mucinex nighttime pills cough drop URI This is a new problem. The problem has been gradually worsening. There has been no fever. Associated symptoms include congestion, coughing, ear pain, sinus pain and a sore throat. The treatment provided no relief. Current Outpatient Medications on File Prior to Visit Medication Sig Dispense Refill alpha tocopherol (Vitamin E) 400 units capsule 1 capsule 1 (one) time each day at the same time. azithromycin (Zithromax) 250 MG tablet Use as directed. 6 tablet 0 Calcium Carb-Cholecalciferol (CALCIUM 500 +D PO) Take 1 tablet by mouth in the morning. cholecalciferol (Vitamin D-3) 125 MCG (5000 UT) capsule as directed Orally cyanocobalamin (Vitamin B-12) 1000 MCG tablet Take 1,000 mcg by mouth in the morning. Flaxseed, Linseed, (Flaxseed Oil) 1200 MG capsule as directed Orally furosemide (Lasix) 40 MG tablet TAKE 1 TABLET BY MOUTH TWICE A DAY FOR 90 DAYS 200 tablet 3 magnesium oxide (Mag-Ox) 400 mg tablet 400 mg in the morning. plecanatide (Trulance) tablet tablet Take 1 tablet (3 mg) by mouth Daily 90 tablet 3 tiZANidine (Zanaflex) 4 MG tablet TAKE 1/2-1 TABLET BY MOUTH TWICE DAILY NEEDED Turmeric (QC Tumeric Complex) 500 MG capsule Take 2 capsules by mouth in the morning. No current facility-administered medications on file prior to visit. I have reviewed and reconciled the history and medication list with the patient today. Allergies Allergen Reactions Bactrim [Sulfamethoxazole-Trimethoprim] Swelling Lip swelling, difficulty swallowing Cyclobenzaprine Other Reaction(s): headaches Penicillin G Other Reaction(s): hives Sodium Hypochlorite Other Reaction(s): Unknown Social History Tobacco Use Smoking status: Never Smokeless tobacco: Never Substance Use Topics Alcohol use: Never Comment: Caffeine intake tea Drug use: Never Family History Problem Relation Name Age of Onset Mental illness Mother Alzheimer's disease Mother Alzheimer's disease Father Scotty Hypertension Father Fajardo Mental illness Father Scotty Past Medical History: Diagnosis Date Allergic Allergies Goiter (CMS/HCC) 2012 H/O CT scan 04/27/2019 Scan of brain no acute intracranial abnormality H/O CT scan of brain History of blood clots History of medical problems CT scan of Abdomen and Pelvis shows dilated small loops of small bowel, pericardial cyst. Basilar atelectasis vs. small pneumonia Hx of papillary thyroid carcinoma 2016 Multinodular goiter (CMS/HCC) x4 Thyroid nodule (CMS/HCC) 2018 Past Surgical History: Procedure Laterality Date AFIRMA THYROID FNA ANALYSIS 10/14/2015 SECTION, LOW TRANSVERSE 1983 CHOLECYSTECTOMY 03/09/2016 FOOT FRACTURE SURGERY 04/02/2015 broken foot walking cast IR FINE NEEDLE ASPIRATION THYROID 2016 THYROIDECTOMY Right 11/08/2015 partial TUBAL LIGATION Bilateral Visit Vitals Smoking Status Never Review of Systems HENT: Positive for congestion, ear pain, sinus pain and sore throat. Respiratory: Positive for cough. Objective Physical Exam Vitals reviewed. Constitutional: Appearance: Normal appearance. HENT: Head: Normocephalic. Nose: Congestion present. Mouth/Throat: Mouth: Mucous membranes are moist. Pharynx: Oropharynx is clear. Posterior oropharyngeal erythema present. Eyes: Conjunctiva/sclera: Conjunctivae normal. Cardiovascular: Rate and Rhythm: Normal rate and regular rhythm. Pulmonary: Effort: Pulmonary effort is normal. Breath sounds: Normal breath sounds. Skin: General: Skin is warm and dry. Neurological: General: No focal deficit present. Mental Status: She is alert and oriented to person, place, and time. Psychiatric: Mood and Affect: Mood normal. Behavior: Behavior normal. Thought Content: Thought content normal. Judgment: Judgment normal. Assessment/Plan Diagnoses and all orders for this visit: Acute non-recurrent pansinusitis Start the above as directed. Reviewed potential s/e with patient. Encouraged probiotic while on antibiotic. Increase water intake, get plenty of rest. Can take OTC allergy medication for symptomatic relief. Tylenol/Motrin prn. Follow up if no improvement in one week. No follow-ups on file. documented in this encounter [facility] 03-16-2024 Evaluation note Diagnosis Onset Date Resolution Chronic pain acute March 16, 2024 1:20pm Lumbar radiculopathy acute Augu st 2023 1:20pm Lumbosacral spondylosis acute A ugust 2023 1:20pm Sacroiliitis acute March 16, 2024 1:20pm Chronic pain acute April 142023 3:17pm Lumbar radiculopathy acute Sept ember 2023 3:17pm Lumbosacral spondylosis acute S eptember 2023 3:17pm Sacroiliitis acute April 142023 3:17pm Lumbar radiculopathy acute Octo aubree 2023 1:51pm Lumbosacral spondylosis acute O ctober 2023 1:51pm Other chronic pain acute Octobe r 2023 1:51pm Sacroiliitis acute April 1:51pm Lumbar radiculopathy acute Nove mber 2023 1:25pm Lumbosacral spondylosis acute N ovember 2023 1:25pm Other chronic pain acute Novemb er 2023 1:25pm Sacroiliitis acute May 1:25pm [facility] Work Phone: 1(365) 677-959510-30-2023 Evaluation note* Encounter Date Diagnosis Assessment Notes [...] (ICD-10 - G89.29) Follow up as needed. [employer] Other 10-02-2023 Evaluation note* Encounter Date Diagnosis [...] - G89.29) Follow up in 4 weeks. [employer] Other 09-07-2023 Evaluation note* Encounter Date Diagnosis [...] joint injections in the future if needed [employer] Other 08-08-2023 Evaluation note* Encounter Date Diagnosis [...] (ICD-10 - G89.29) Follow up after procedure [employer] Other 04-25-2023 Evaluation note* Encounter Date Diagnosis [...] call the office if her symptoms worsen. [employer] Other 04-10-2023 Evaluation note* Encounter Date Diagnosis [...] (ICD-10 - G89.29) Folllow up after imaging [employer] Other 03-22-2023 Evaluation note* Encounter Date Diagnosis [...] (ICD-10 - G89.29) Folllow up after imaging [employer] Other 03-01-2023 Evaluation note* Encounter Date Diagnosis [...] (ICD-10 - G89.29) Folllow up after imaging [employer] Other 02-01-2023 Evaluation note* Encounter Date Diagnosis [...] - G89.29) Follow up in 4 weeks. [employer] Other 02-01-2023 Evaluation note* Encounter Date Diagnosis Assessment Notes Treatment Notes Treatment Clinical Notes Aug, Lumbosacral spondylosis (ICD-10 - M47.817) [employer] Other 01-09-2023 Evaluation note* Encounter Date Diagnosis [...] - G89.29) Continue with current treatment plan [employer] Other 12-07-2022 Evaluation note* Encounter Date Diagnosis [...] - G89.29) Continue with current treatment plan [employer] Other 08-23-2022 Evaluation note* Encounter Date Diagnosis [...] proceeding with gel injections under ultrasound guidance [employer] Other 07-11-2022 Evaluation note* Encounter Date Diagnosis [...] - G89.29) Follow up in 4 weeks [employer] Other 06-24-2022 Evaluation note* Encounter Date Diagnosis [...] current treatment plan. Follow up after procedure. [employer] Other 05-09-2022 Evaluation note* Encounter Date Diagnosis [...] pain November, Chronic pain (ICD-10 - G89.29) [employer] Other 04-11-2022 Evaluation note* Encounter Date Diagnosis [...] (ICD-10 - G89.29) Continue with surgical consult [employer] Other 03-24-2022 Evaluation note* Encounter Date Diagnosis Assessment Notes Treatment Notes Treatment Clinical Notes Sep, Sacroiliitis (ICD-10 - M46.1) If her symptoms persist, we can consider proceeding with a bilateral sacroiliac joint injection under fluoroscopic guidance in the future 24 Mar, 2022 Lumbar radiculopathy (ICD-10 - M54.16) 73 year [...] - G89.29) Continue with current treatment plan [employer] Other 03-07-2022 Evaluation note* Encounter Date Diagnosis [...] - G89.29) Continue with current treatment plan [employer] Other 04-11-2016 History general Narrative - Reported* Type Description [...] History Bilateral tubal ligation Surgical History THYROID 2016 Surgical History section 1982 Surgical History GALLBLADDER Surgical History Broken foot Walking cast 04/02/20 15 Surgical History C SECTION 1982 Surgical History ENDOMETRIOSIS Surgical History thyroid FNA 10/14/2015 Surgical History R filippo thyroidectomy 11/08/2015 Surgical History cholecystectomy 03/09/2016 Hospitalization History SEE [facility] [place] Other Evaluation noteNo assessment information available [facility] Work Phone: evalubtcut [facility]No [facility] [place] [facility]unvozs note* Diagnosis Onset Date Resolution Status Chronic pain acute Lumbar radiculopathy acute Lumbosacral spondylosis acut e [facility] Work Phone: Evaluation note* Diagnosis Onset Date Resolution Status Chronic pain acute Lumbar radiculopathy acute Lumbosacral spondylosis acut e Chronic pain acute Lumbar radiculopathy acute Lumbosacral spondylosis acut e Sacroiliitis acute [facility] Work Phone: evaluation note* Diagnosis Onset Date Resolution Status Lumbosacral spondylosis acut e Other chronic pain acute Sacroiliitis acute [facility] Work Phone: Evaluation note* Diagnosis Onset Date Resolution Status Lumbosacral spondylosis acut e Other chronic pain acute Sacroiliitis acute Lumbosacral spondylosis acut e Other chronic pain acute Sacroiliitis acute [facility] Work Phone: Evaluation note* Diagnosis Onset Date Resolution Status Lumbosacral spondylosis acut e Other chronic pain acute Sacroiliitis acute Lumbosacral spondylosis acut e Other chronic pain acute Sacroiliitis acute Chronic pain acute Lumbar radiculopathy acute Lumbosacral spondylosis acut e Sacroiliitis acute [facility] Work Phone: Evaluation note* Diagnosis Onset Date Resolution Status Lumbosacral spondylosis acut e Other chronic pain acute Sacroiliitis acute Lumbosacral spondylosis acut e Other chronic pain acute Sacroiliitis acute Chronic pain acute Lumbar radiculopathy acute Lumbosacral spondylosis acut e Sacroiliitis acute Chronic pain acute Lumbar radiculopathy acute Lumbosacral spondylosis acut e Sacroiliitis acute [facility] Work Phone: Evaluation note* Diagnosis Onset Date Resolution Status Lumbosacral spondylosis acut e Other chronic pain acute Sacroiliitis acute Chronic pain acute Lumbar radiculopathy acute Lumbosacral spondylosis acut e Sacroiliitis acute Chronic pain acute Lumbar radiculopathy acute Lumbosacral spondylosis acut e Sacroiliitis acute Chronic pain acute Lumbar radiculopathy acute Lumbosacral spondylosis acut e Sacroiliitis acute [facility] Work Phone: Evaluation note* Diagnosis Onset Date Resolution Status Chronic pain acute Lumbar radiculopathy acute Lumbosacral spondylosis acut e Sacroiliitis acute Chronic pain acute Lumbar radiculopathy acute Lumbosacral spondylosis acut e Sacroiliitis acute Chronic pain acute Lumbar radiculopathy acute Lumbosacral spondylosis acut e Sacroiliitis acute Lumbar radiculopathy acute Lumbosacral spondylosis acut e Other chronic pain acute Sacroiliitis acute [facility] Work Phone: Evaluation note* Diagnosis Acute non-recurrent pansinusitis- Primary [facility] Diagnosis Onset Date Resolution Status Chronic pain acute Lumbar radiculopathy acute Lumbosacral spondylosis acut e Sacroiliitis acute Chronic pain acute Lumbar radiculopathy acute Lumbosacral spondylosis acut e Sacroiliitis acute Lumbar radiculopathy acute Lumbosacral spondylosis acut e Other chronic pain acute Sacroiliitis acute Lumbar radiculopathy acute Lumbosacral spondylosis acut e Other chronic pain acute Sacroiliitis acute [facility] Work Phone: History general Narrative - Reported* Type Description Date Medical History THYROID CANCER Surgical History THYROID 2016 Surgical History GALLBLADDER Surgical History C SECTION 1982 Surgical History ENDOMETRIOSIS Hospitalization History SEE ABOVE [employer] Other Summary Purpose Family History Relationship Condition Age at Onset Recorded Date/T padmini brother Alzheimer's dementia Unknown father Unknown Alzheimer's dementia Unknown Hypertension Unknown Not Specified Unknown Relationship Condition Age at Onset Recorded Date/T padmini brother Alzheimer's dementia Unknown father Unknown Alzheimer's dementia Unknown Hypertension Unknown mother Unknown Advance Directives Documents on File Type Date Recorded 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 * Numbness and Tingling (Bolivian) * Dizziness (Bolivian) documented in this encounter Assessments Diagnosis Dizziness- Primary Dizziness and giddiness Paresthesia Disturbance of skin sensation Chief Complaint and Reason for Visit Chief Complaint M25.562 Chief Complaint back pain Reason for Visit Chronic pain Lumbar radiculopathy Lumbosacral spondylosis Chief Complaint back pain CAUDAL EPIDURAL STEROID INJ Reason for Visit Chronic pain Lumbar radiculopathy Lumbosacral spondylosis Chief Complaint back pain CAUDAL EPIDURAL STEROID INJ FOLLOW UP AFTER CAUDAL AL LUMBAR FACET RFA L3,4,5 Reason for Visit Chronic pain Lumbar radiculopathy Lumbosacral spondylosis Chronic pain Lumbar radiculopathy Lumbosacral spondylosis Sacroiliitis Chief Complaint follow up after RFA Reason for Visit Lumbosacral spondylo sis Other chronic pain Sacroiliitis Chief Complaint follow up after RFA 6 week follow up after RFA Reason for Visit Lumbosacral spondylo sis Other chronic pain Sacroiliitis Lumbosacral spondylosis Other chronic pain Sacroiliitis Chief Complaint follow up after RFA 6 week follow up after RFA BILATERAL SACROILIAC JOINT INJ Reason for Visit Lumbosacral spondylo sis Other chronic pain Sacroiliitis Lumbosacral spondylosis Other chronic pain Sacroiliitis Chief Complaint follow up after RFA 6 week follow up after RFA BILATERAL SACROILIAC JOINT INJ FOLLOW UP AFTER AL SI Reason for Visit Lumbosacral spondylo sis Other chronic pain Sacroiliitis Lumbosacral spondylosis Other chronic pain Sacroiliitis Chronic pain Lumbar radiculopathy Lumbosacral spondylosis Sacroiliitis Chief Complaint follow up after RFA 6 week follow up after RFA BILATERAL SACROILIAC JOINT INJ FOLLOW UP AFTER AL SI CAUDAL EPIDURAL STEROID INJ Reason for Visit Lumbosacral spondylo sis Other chronic pain Sacroiliitis Lumbosacral spondylosis Other chronic pain Sacroiliitis Chronic pain Lumbar radiculopathy Lumbosacral spondylosis Sacroiliitis Chief Complaint follow up after RFA 6 week follow up after RFA BILATERAL SACROILIAC JOINT INJ FOLLOW UP AFTER AL SI CAUDAL EPIDURAL STEROID INJ FOLLOW UP AFTER CAUDAL Reason for Visit Lumbosacral spondylo sis Other chronic pain Sacroiliitis Lumbosacral spondylosis Other chronic pain Sacroiliitis Chronic pain Lumbar radiculopathy Lumbosacral spondylosis Sacroiliitis Chronic pain Lumbar radiculopathy Lumbosacral spondylosis Sacroiliitis Chief Complaint follow up after RFA 6 week follow up after RFA BILATERAL SACROILIAC JOINT INJ FOLLOW UP AFTER AL SI CAUDAL EPIDURAL STEROID INJ FOLLOW UP AFTER CAUDAL bilateral L3,4,5 lumbar facet RFA Reason for Visit Lumbosacral spondylo sis Other chronic pain Sacroiliitis Lumbosacral spondylosis Other chronic pain Sacroiliitis Chronic pain Lumbar radiculopathy Lumbosacral spondylosis Sacroiliitis Chronic pain Lumbar radiculopathy Lumbosacral spondylosis Sacroiliitis Chief Complaint 6 week follow up aft er RFA BILATERAL SACROILIAC JOINT INJ FOLLOW UP AFTER AL SI CAUDAL EPIDURAL STEROID INJ FOLLOW UP AFTER CAUDAL bilateral L3,4,5 lumbar facet RFA 2 week f/u after al lumbar RFA Reason for Visit Lumbosacral spondylo sis Other chronic pain Sacroiliitis Chronic pain Lumbar radiculopathy Lumbosacral spondylosis Sacroiliitis Chronic pain Lumbar radiculopathy Lumbosacral spondylosis Sacroiliitis Chronic pain Lumbar radiculopathy Lumbosacral spondylosis Sacroiliitis Chief Complaint BILATERAL SACROILIAC JOINT INJ FOLLOW UP AFTER AL SI CAUDAL EPIDURAL STEROID INJ FOLLOW UP AFTER CAUDAL bilateral L3,4,5 lumbar facet RFA 2 week f/u after al lumbar RFA follow up after lumbar RFA Reason for Visit Chronic pain Lumbar radiculopathy Lumbosacral spondylosis Sacroiliitis Chronic pain Lumbar radiculopathy Lumbosacral spondylosis Sacroiliitis Chronic pain Lumbar radiculopathy Lumbosacral spondylosis Sacroiliitis Lumbar radiculopathy Lumbosacral spondylosis Other chronic pain Sacroiliitis Chief Complaint FOLLOW UP AFTER AL SI CAUDAL EPIDURAL STEROID INJ FOLLOW UP AFTER CAUDAL bilateral L3,4,5 lumbar facet RFA 2 week f/u after al lumbar RFA follow up after lumbar RFA L4-5 EPIDURAL STEROID INJ Reason for Visit Chronic pain Lumbar radiculopathy Lumbosacral spondylosis Sacroiliitis Chronic pain Lumbar radiculopathy Lumbosacral spondylosis Sacroiliitis Chronic pain Lumbar radiculopathy Lumbosacral spondylosis Sacroiliitis Lumbar radiculopathy Lumbosacral spondylosis Other chronic pain Sacroiliitis Chief Complaint CAUDAL EPIDURAL STER OID INJ FOLLOW UP AFTER CAUDAL bilateral L3,4,5 lumbar facet RFA 2 week f/u after al lumbar RFA follow up after lumbar RFA L4-5 EPIDURAL STEROID INJ FOLLOW UP AFTER LES Reason for Visit Chronic pain Lumbar radiculopathy Lumbosacral spondylosis Sacroiliitis Chronic pain Lumbar radiculopathy Lumbosacral spondylosis Sacroiliitis Lumbar radiculopathy Lumbosacral spondylosis Other chronic pain Sacroiliitis Lumbar radiculopathy Lumbosacral spondylosis Other chronic pain Sacroiliitis Chief Complaint Admit Date FOLLOW UP AFTER CAUDAL March 16, 2024 1:20pm bilateral L3,4,5 lumbar facet RFA March 26, 2024 11:10am 2 week f/u after al lumbar RFA Septembe r 2023 3:17pm follow up after lumbar RFA May 13, 2024 1:51pm L4-5 EPIDURAL STEROID INJ May 21, 2024 9:06am FOLLOW UP AFTER LES June 01, 2024 1 :25pm al SI joint injection June 11 10:54am Reason for Visit Admit Date Chronic pain March 16, 2024 1: 20pm Lumbar radiculopathy March 16, 2024 1 :20pm Lumbosacral spondylosis March 16 1:20pm Sacroiliitis March 16, 2024 1: 20pm Chronic pain April 14, 2024 3:17pm Lumbar radiculopathy April 14 3:17pm Lumbosacral spondylosis April 14, 2024 3:17pm Sacroiliitis April 14, 2024 3:17pm Lumbar radiculopathy May 13, 2024 1:51pm Lumbosacral spondylosis May 13 1:51pm Other chronic pain May 13, 2024 1 :51pm Sacroiliitis May 13, 2024 1 :51pm Lumbar radiculopathy June 01, 2024 1:25pm Lumbosacral spondylosis June 01 1:25pm Other chronic pain June 01, 2024 1 :25pm Sacroiliitis June 01, 2024 1 :25pm Additional Source Comments INFORMATION SOURCE (unrecogn ized section and content) DATE CREATED AUTHOR 01/22/2018 [facility] DATE CREATED AUTHOR AUTHOR'S ORGANIZ ATION 01/22/2018 [facility] DATE CREATED AUTHOR AUTHOR'S ORGANIZ ATION 04/29/2019 [facility] DATE CREATED AUTHOR AUTHOR'S ORGANIZ ATION 08/08/2022 [facility] DATE CREATED AUTHOR AUTHOR'S ORGANIZ ATION 10/27/2022 [facility] DATE CREATED AUTHOR AUTHOR'S ORGANIZ ATION 05/17/2024 [facility] EPIC Reason for Visit (unrecogniz ed section and content) Reason Comments Dizziness pt states onset this am Arm Pain pt states she had pa in down both arms Reason Comments URI Care Teams (unrecognized sec tion and content) Team Status: Inactive Member Role Status Dates Merced Beal MD Primary Care Provider Active Vazquez Villar MD Attending Provider Active Team Status: Active Member Role Status Dates Merced Beal MD Primary Care Provider Active Team Status: Inactive Member Role Status Dates Merced Beal MD Primary Care Provider Active S tart: November 18, 2023 End: November 18, 2023 Vazquez Villar MD Attending Provider Active Sta rt: November 18, 2023 End: November 18, 2023 Team Status: Inactive Member Role Status Dates Merced Beal MD Primary Care Provider Active S tart: December 03, 2023 End: December 03, 2023 Vazquez Villar MD Attending Provider Active Sta rt: December 03, 2023 End: December 03, 2023 Team Status: Active Member Role Status Joyce Beal MD Primary Care Provider Active S tart: December 03, 2023 Vazquez Villar MD Attending Provider Active Sta rt: December 03, 2023 Team Status: Inactive Member Role Status Joyce Beal MD Primary Care Provider Active S tart: December 11, 2023 End: December 11, 2023 Vazquez Villar MD Attending Provider Active Sta rt: December 11, 2023 End: December 11, 2023 Team Status: Inactive Member Role Status Joyce Beal MD Primary Care Provider Active S tart: December 24, 2023 End: December 24, 2023 Vazquez Villar MD Attending Provider Active Sta rt: December 24, 2023 End: December 24, 2023 Team Status: Inactive Member Role Status Joyce Woodall NP Attending Provider Active Start: January 07, 2024 End: January 07, 2024 Merced Beal MD Primary Care Provider Active S tart: January 07, 2024 End: January 07, 2024 Team Status: Inactive Member Role Status Joyce Beal MD Primary Care Provider Active S tart: February 05, 2024 End: February 05, 2024 Sheela Woodall NP Active Start: February 05, 2024 End: February 05, 2024 Vazquez Villar MD Attending Provider Active Sta rt: February 05, 2024 End: February 05, 2024 Team Status: Inactive Member Role Status Joyce Beal MD Primary Care Provider Active S tart: February 13, 2024 End: February 13, 2024 Vazquez Villar MD Attending Provider Active Sta rt: February 13, 2024 End: February 13, 2024 Team Status: Active Member Role Status Joyce Beal MD Primary Care Provider Active S tart: February 13, 2024 Vazquez Villar MD Attending Provider Active Sta rt: February 13, 2024 Team Status: Inactive Member Role Status Joyce Beal MD Primary Care Provider Active S tart: February 26, 2024 End: February 26, 2024 Vazquez Villar MD Attending Provider Active Sta rt: February 26, 2024 End: February 26, 2024 Team Status: Inactive Member Role Status Joyce Beal MD Primary Care Provider Active S tart: March 05, 2024 End: March 05, 2024 Vazquez Villar MD Attending Provider Active Sta rt: March 05, 2024 End: March 05, 2024 Team Status: Active Member Role Status Joyce Beal MD Primary Care Provider Active S tart: March 05, 2024 Vazquez Villar MD Attending Provider Active Sta rt: March 05, 2024 Team Status: Inactive Member Role Status Joyce Beal MD Primary Care Provider Active S tart: March 16, 2024 End: March 16, 2024 Vazquez Villar MD Attending Provider Active Sta rt: March 16, 2024 End: March 16, 2024 Team Status: Inactive Member Role Status Joyce Beal MD Primary Care Provider Active S tart: March 26, 2024 End: March 26, 2024 Vazquez Villar MD Attending Provider Active Sta rt: March 26, 2024 End: March 26, 2024 Team Status: Active Member Role Status Joyce Beal MD Primary Care Provider Active S tart: March 26, 2024 Vazquez Villar MD Attending Provider Active Sta rt: March 26, 2024 Team Status: Inactive Member Role Status Joyce Beal MD Primary Care Provider Active S tart: April 14, 2024 End: April 14, 2024 Sheela Woodall NP Attending Provider Active Start: April 14, 2024 End: April 14, 2024 Team Status: Inactive Member Role Status Joyce Beal MD Primary Care Provider Active S tart: May 13, 2024 End: May 13, 2024 Vazquez Villar MD Attending Provider Active Sta rt: May 13, 2024 End: May 13, 2024 Sign Language Interpreter Relationship Specialty Start Date End Date Merced Beal MD [address] [place] [id number] PCP - General Family Medicine 02/12/23 Team Status: Inactive Member Role Status Joyce Beal MD Primary Care Provider Active S tart: May 21, 2024 End: May 21, 2024 Vazquez Villar MD Attending Provider Active Sta rt: May 21, 2024 End: May 21, 2024 Team Status: Active Member Role Status Dates Merced Beal MD Primary Care Provider Active S tart: May 21, 2024 Vazquez Villar MD Attending Provider Active Sta rt: May 21, 2024 Team Status: Inactive Member Role Status Dates Merced Beal MD Primary Care Provider Active S tart: June 01, 2024 End: June 01, 2024 Vazquez Villar MD Attending Provider Active Sta rt: June 01, 2024 End: June 01, 2024 Team Status: Inactive Member Role Status Dates Merced Beal MD Primary Care Provider Active S tart: June 11, 2024 End: June 11, 2024 Vazquez Villar MD Attending Provider Active Sta rt: June 11, 2024 End: June 11, 2024 Goals (unrecognized section and content) Goals may be documented in a n alternate sectionNo InformationNo InformationNo InformationNo InformationNo InformationNo InformationNo InformationNo InformationNo InformationNo InformationNo InformationNo InformationNo InformationNo InformationNo InformationNo InformationNo InformationNo InformationNo InformationNo InformationNo InformationNo InformationNo InformationNo InformationNo InformationNo InformationNo InformationNo InformationNo InformationGoals may be documented in an alternate sectionGoals may be documented in an alternate sectionGoals may be documented in an alternate sectionGoals may be documented in an alternate sectionGoals may be documented in an alternate sectionGoals may be documented in an alternate sectionGoals may be documented in an alternate sectionGoals may be documented in an alternate sectionGoals may be documented in an alternate sectionGoals may be documented in an alternate sectionGoals may be documented in an alternate sectionGoals may be documented in an alternate sectionGoals may be documented in an alternate sectionGoals may be documented in an alternate sectionGoals may be documented in an alternate section FOR RECORDS PERTAINING TO PATIENTS WHO ARE [...] BE BASED ON THE PRIMARY CLINICAL RECORDS. [facility] [employer] [facility]. provides no warranty or guarantee of the accuracy or completeness of information in this document.
--- NOTE | 2024-07-10 13:50 | XR_ITS ---
The [address] [address] Patient Name: JUAN DANIEL PADILLA MRN: [id number] date: 1960 Sex: F Assigned Patient Location: [facility] Current Patient Location: Accession/Order Number: [id number] Exam Date: 07/10/2024 13:40 Report Date: 07/10/2024 15:34 At the request of: VINH GONZALEZ Procedure: XR DEXA axial skeleton EXAMINATION: XR DEXA axial skeleton, 07/10/2024 1:40 PM EST HISTORY: Medicare wellness, Z00.00, Estrogen deficiency COMPARISON: None. TECHNIQUE: Dual-energy X-ray absorptiometry (DEXA) bone density study performed for the axial skeleton. FINDINGS: Bone mineral density AP spine L1-L4 measures 1.447 g/sq cm. T score 2.2. Normal. This likely is elevated secondary to degenerative spondylosis Lowest bone mineral density right femoral trochanter measuring 0.529 g/sq cm. T score -2.8. Osteoporosis XR/XR DEXA axial skeleton IMPRESSION: Osteoporosis. High fracture risk 10 year fracture is not reported because T score below -2.5 Pharmacologic treatment recommendations * No uniform recommendation applies to all patients. Management plans must be individualized. * Consider initiating pharmacologic treatment in postmenopausal women and men >= 50 years of age who have the following: Primary fracture prevention: * T-score <= - 2.5 at the femoral neck, total hip, lumbar spine, 33% radius (some uncertainty with existing data) by DXA. * Low bone mass (osteopenia: T-score between - 1.0 and - 2.5) at the femoral neck or total hip by DXA with a 10-year hip fracture risk >= 3% or a 10-year major osteoporosis-related fracture risk >= 20% (i.e., clinical vertebral, hip, forearm, or proximal humerus) based on the [place]-adapted FRAXregistered model. Secondary fracture prevention: * Fracture of the hip or vertebra regardless of BMD [4, 5]. * Fracture of proximal humerus, pelvis, or distal forearm in persons with low bone mass (osteopenia: T-score between - 1.0 and - 2.5). The decision to treat should be individualized in persons with a fracture of the proximal humerus, pelvis, or distal forearm who do not have osteopenia or low BMD [12, 13]. Emily MS, Ary SL, Jose KL, Sarah Beth EM, Baldo KG, AJ, Slick ES. The clinician's guide to prevention and treatment of osteoporosis. Osteoporos Int. 2021;33(10):3731-9524. doi: 10.1007/h33702-731-19516-j. Epub 2021Nov 23. Erratum in: Osteoporos Int. 2021Feb 22;: PMID: 76277090; PMCID: [id number]. Electronically authenticated by: CEDRIC KERR Date: 07/10/2024 15:34
== END 2024-07-10 13:26 | disposition home or self-care (01) ==
LOC: RAD 13:26
PROVIDERS: PCP Family Medicine; Visit Provider Nurse Practitioner Family
DX: E28.39 Other primary ovarian failure (principal); M81.0 Age-related osteoporosis without current pathological fracture
CPT/HCPCS: 77080

== ENCOUNTER 2024-07-10 13:27 | Outpatient (OUT) | payer MEDICARE, MEDICAID, SELFPAY ==
--- NOTE | 2024-07-10 13:34 | US_ITS ---
[address] [address] Patient Name: JUAN DANIEL PADILLA MRN: [id number] date: 1960 Sex: F Assigned Patient Location: [place] Current Patient Location: Accession/Order Number: [id number] Exam Date: 07/10/2024 13:35 Report Date: 07/13/2024 07:31 At the request of: JOHNY GALAN Procedure: US thyroid EXAMINATION: US thyroid HISTORY: Papillary microcarcinoma of thyroid, C73 COMPARISON: 07/10/2023 TECHNIQUE: Sonographic images of the thyroid gland were obtained. FINDINGS: Soft tissue identified in the right thyroid lobe is stable measuring 2.3 x 0.7 x 1.2 cm, recurrent/residual thyroid tissue from known thyroidectomy. Single 4 mm TR 4 nodule The thyroid isthmus measures 2.7 mm, no focal nodule The left thyroid lobe measures 4.2 x 1.1 x 1.7 cm. Heterogeneous echotexture with 3 focal nodules with, a single nodule larger than 5 mm Nodule 1:0.9 x 0.7 x 0.5 cm. Solid, hypoechoic, wide, smooth margins, no calcifications. TR 4 US/US thyroid IMPRESSION: Stable multifocal nodular thyroid gland the largest nodule in the left lobe measuring 9 mm, TR 4 TI-RADS: TR 4 Electronically authenticated by: CEDRIC KERR Date: 07/13/2024 07:31
--- OUTSIDE RECORDS SUMMARY | 2024-07-10 13:39 | XMS_ITS | CCD ---
Author Organization [facility] [employer] Care Team Providers Care Vrt Mechanic Name Role Phone Jeffry Woodall Unavailable Unavailable Jeffry Woodall Unavailable Unavailable SELF, REFERRED Unavailable Unavailable SELF, REFERRED Unavailable Unavailable Patrick Coley Unavailable Unavailable OSMANY GAMINO Unavailable Unavailable MERCED BEAL Primary Care Unavailable FRANCES HURT Attending Unavailable Merced Beal Primary Care Provider [phone] MD Merced Beal Primary Care Provider [phone] MD Vazquez Villar Attending Provider Vazquez Villar [...] cyclobenzaprine Drug Allergy 02-05-20 24 headaches, HEADACHE [facility] house dust allergenic extract (1 source) house dust allergenic extract Drug Allergy 02-05-20 24 Abdominal Pain [facility] Mold (1 source) Mold Substance Allergy 02-05-20 24 Abdominal Pain [facility] Penicillins (antibiotic) (1 source) Penicillins Drug Allergy 02-05-20 24 [facility] (13 sources) Penicillins Propensity to adverse reactions to drug 12-03-19 13 [place], [place] (20 sources) cyclobenzaprine; Translations: [Flexeril] Drug Allergy 11-02-19 16 HEADACHE [facility] (20 sources) Bleach Propensity to adverse reactions Unknown [facility] [employer] Other (1 source) diazePAM Drug Allergy 11-02-19 16 [facility] (1 source) gabapentin Drug Allergy 11-02-19 16 [facility] (1 source) Hypochlorite Drug Allergy 11-02-19 16 [facility] (1 source) Penicillins Drug allergy (disorder) 10-05-19 16 [facility] (3 sources) Dust Propensity to adverse reactions Unknown [employer] Other (14 sources) Mold Propensity to adverse reactions 01-07-20 24 Unknown, Abdominal Pain [facility] (3 sources) Penicillin Drug Allergy [facility] [employer] Other (14 sources) cyclobenzaprine Drug Allergy 02-13-20 23 Headache, headaches, HEADACHE [facility] (12 sources) house dust allergenic extract Drug Allergy 12-11-19 24 Itching, Abdominal Pain [facility] (1 source) Mold Extract Drug Allergy 12-11-19 24 Unknown Reaction [facility] (13 sources) Bleach (Sodium Hypochlorite) Allergy to substance 12-11-19 24 Unknown Reaction, Abdominal Pain [facility] (2 sources) Hypochlorite Drug Allergy 02-13-[address] [facility] (2 sources) Penicillin G Drug Allergy 02-13-[address] [facility] (2 sources) Sulfamethoxazole / Trimethoprim Drug Allergy 06-18-[address] [facility] Work Phone: Medications Current Medications [...] not refill until 05/04/23); Note: Source Status: Not-[id number] chronic pain; Refills: 0; Provider: Jian Gibbons Start: 04-04-2023 take 1 capsule by mo [facility] every twelve hours Gabapentin 300 MG 1 [...] 0 02/27/2016 Active take [facility] three times daily at mealtime as needed Advil 200 MG 1 tablet with food or milk as needed Orally Three times a day Active lactobacillus rhamnosus gg [id number] unt oral capsule (1 source) Start: 12-11-2023 [...] ) Start: 01-07-2024 [facility] daily Vitamin E (Dl, Acetate) Active [...] same time. Active take 1 capsule by [facility] every twenty-four hours Vitamin E 180 MG [...] mri xrayon 10-16 XR pre/post mri xray [facility] [place] [address] MRI Report Signed Patient: Ela Padilla MR#: [id number] 0 : 1960 Acct:[id number] Age/Sex: 61 / F ADM Date: 10/15/22 Loc: MR Room: Type: [facility] CLI Attending Dr: Vazquez Villar MD Copies to: Vazquez Villar MD Ordering Provider: Vazquez Villar MD Date of Service: 10/15/22 MR/MR lumbar spine wo con: M54.16 ([id number]) XR/XR pre/post mri xray: M54.16 MR lumbar [...] Frances Hernandez M.D.10/15/2022 10:19 PM Dictation Location: [place] [address] Transcribed By: [facility] 10/15/222218 Dictated By: Frances Hernandez II, MD 10/15/222212 Signed By: 10/15/222218 [facility] MG MAMM SCREEN 3D AL CADon 08-03-2022 MG MAMM SCREEN 3D AL CAD Patient: KIRAN PADILLA Exam Date: 08/03/2022 : 1960 Gender:F Ordering : DR MERCED BEAL M.D. Admission #: [id number] Family : Order #: [id number] CLICK HERE TO VIEW EXAM RADIOLOGY REPORT [...] No Treatments Thyroidectomy Family Cancers None LOCATION: [facility] BREAST COMPOSITION: Scattered areas fibroglandular density. [...] Kerr MD on 08/03/2022 at 15:03 Normal [facility] US THYROIDon 07-12-2022 US THYROID EXAMINATION: [...] by: CEDRIC KERR Date: 2022-07-12 19:03 Normal [facility] XR knee LT 4V*on 01-01-2022 XR knee LT 4V* [facility] Main [place] [address] [place] [address] XRay Report Signed Patient: Ela Padilla MR#: [id number] 0 : 1960 Acct:[id number] Age/Sex: 61 / F ADM Date: 01/01/22 Loc: XD Room: [facility] Attending Dr: Vazquez Villar MD Ordering Provider: [...] Mercy Salgado M.D.01/01/2022 4:46 PM Dictation Location: [place] [address] Transcribed By: [facility] 01/01/22 164 Dictated By: Mercy Salgado MD 01/01/22 164 Signed By: 01/01/22 164 [facility] CBC Auto Differentialon 03-31-2018 Basophils (Bld) [#/Vol] 0.07 10*3/uL [place] Basophils/100 WBC (Bld) 1 % 0 - 2 % [place] Differential Type NOT REPORTED [place] Eosinophils (Bld) [#/Vol] 0.08 10*3/uL [place] Eosinophils/100 WBC (Bld) 1 % 1 - 4 % [place] Erythrocyte distribution width (RBC) [Ratio] 12.8 % 11.8 - 14.4 % [place] Hematocrit (Bld) [Volume fraction] 43.7 % 36.3 - 47.1 % [place] Hemoglobin (Bld) [Mass/Vol] 14.6 g/dL 11.9 - 15.1 g/dL [place] Immature granulocytes (Bld) [#/Vol] 10*3/uL [place] Immature granulocytes (Bld) [#/Vol] 0 % 0 [place] Interpretation and review of laboratory results Abnormal [place] Lymphocytes (Bld) [#/Vol] 1.92 10*3/uL [place] Lymphocytes/100 WBC (Bld) 27 % 24 - 43 % [place] MCH (RBC) [Entitic mass] 29.9 pg 25.2 - 33.5 pg [place] MCHC (RBC) [Mass/Vol] 33.4 g/dL 28.4 - 34.8 g/dL [place] MCV (RBC) [Entitic vol] 89.5 fL 82.6 - 102.9 fL [place] Monocytes (Bld) [#/Vol] 0.37 10*3/uL [place] Monocytes/100 WBC (Bld) 5 % 3 - 12 % [place] Platelet mean volume (Bld) [Entitic vol] 10.2 fL 8.1 - 13.5 fL [place] Platelets (Bld) [#/Vol] 255 10*3/uL [place] Platelets (Bld) [#/Vol] NOT REPORTED [place] RBC (Bld) [#/Vol] 4.88 10*6/uL 3.95 - 5.1 1 m/uL [place] RBC morphology finding Nom (Bld) NOT REPORTED [place] Segmented neutrophils/100 WBC (Bld) 66 % High 36 - 65 % [place] Segs Absolute 4.70 [place] WBC (Bld) [#/Vol] 0.0 10*3/uL 0.0 per 10 0 WBC [place] WBC (Bld) [#/Vol] 7.2 10*3/uL [place] WBC Morphology NOT REPORTED [place], [place] CBC with Diffon 04-27-2019 Abs. Basophil 0.07 k/uL Normal 0.00-0.20 [facility] Comment on above: Performed By: #### T EDUARD, HUA, CP #### [facility] [address] [place] [address] Recruitment Director: Osmany Chow MD Abs.Imm.Granulocyte <0.03 Normal 0.00-0.30 [facility] Comment on above: Performed By: #### HUA DE OLIVEIRA, CP #### [facility] [address] [place] [id number] Recruitment Director: Osmany Chow MD Abs.Neutrophil (Seg) 4.70 k/uL Normal 1.50-8.10 [facility] Comment on above: Performed By: #### HUA DE OLIVEIRA, CP #### [facility] [address] [place] [address] Recruitment Director: Osmany Chow MD Basophils/100 WBC (Bld) 1 % Normal 0-2 [facility] Comment on above: Performed By: #### HUA DE OLIVEIRA, CP #### [address] [place] [id number] Recruitment Director: Osmany Chow MD Eosinophils (Bld) [#/Vol] 0.08 10*3/uL Normal 0.00-0.44 [facility] Comment on above: Performed By: #### HUA DE OLIVEIRA, CP #### [address] [place] [id number] Recruitment Director: Osmany Chow MD Eosinophils/100 WBC (Bld) 1 % Normal 1-4 [facility] Comment on above: Performed By: #### HUA DE OLIVEIRA, CP #### [address] [place], [facility] Recruitment Director: Osmany Chow MD Erythrocyte distribution width (RBC) [Ratio] 12.8 % Normal 11.8-14.4 [facility] Comment on above: Performed By: #### HUA DE OLIVEIRA, CP #### [address] [place] [id number] Recruitment Director: Osmany Chow MD Hematocrit (Bld) [Volume fraction] 43.7 % Normal 36.3-47.1 [facility] Comment on above: Performed By: #### HUA DE OLIVEIRA, CP #### [facility] [address] [place] [id number] Recruitment Director: Osmany Chow MD Hemoglobin (Bld) [Mass/Vol] 14.6 g/dL Normal 11.9-15.1 [facility] Comment on above: Performed By: #### HUA DE OLIVEIRA, CP #### [facility] [address] [place], [facility] Recruitment Director: Osmany Chow MD Immature granulocytes (Bld) [#/Vol] 0 % Normal 0 [facility] Comment on above: Performed By: #### HUA DE OLIVEIRA, CP #### [address] [place] [id number] Recruitment Director: Osmany Chow MD Lymphocytes (Bld) [#/Vol] 1.92 10*3/uL Normal 1.10-3.70 [facility] Comment on above: Performed By: #### HUA DE OLIVEIRA, CP #### [address] [place] [id number] Recruitment Director: Osmany Chow MD Lymphocytes/100 WBC (Bld) 27 % Normal 24-43 [facility] Comment on above: Performed By: #### HUA DE OLIVEIRA, CP #### [address] [place], [facility] Recruitment Director: Osmany Chow MD MCH (RBC) [Entitic mass] 29.9 pg Normal 25.2-33.5 [facility] Comment on above: Performed By: #### HUA DE OLIVEIRA, CP #### [facility] [address] [place] [address] Recruitment Director: Osmany Chow MD MCHC (RBC) [Mass/Vol] 33.4 g/dL Normal 28.4-34.8 [facility] Comment on above: Performed By: #### T HUA CHAPA, CP #### [facility] [address] [place], [place] [address] Recruitment Director: Osmany Chow MD MCV (RBC) [Entitic vol] 89.5 fL Normal 82.6-102.9 [facility] Comment on above: Performed By: #### T HUA CHAPA, CP #### [facility] [address] [place], [place] [address] Recruitment Director: Osmany Chow MD Monocytes (Bld) [#/Vol] 0.37 10*3/uL Normal 0.10-1.20 [facility] Comment on above: Performed By: #### HUA DE OLIVEIRA, CP #### [address] [place], [place] [address] Recruitment Director: Osmany Chow MD Monocytes/100 WBC (Bld) 5 % Normal 3-12 [facility] Comment on above: Performed By: #### HUA DE OLIVEIRA, CP #### [address] [place], [place] [address] Recruitment Director: Osmany Chow MD Neutrophil (Seg) 66 % High 36-65 [facility] Comment on above: Performed By: #### HUA DE OLIVEIRA, CP #### [facility] [address] [place], [place] [address] Recruitment Director: Osmany Chow MD NRBC Automated 0.0 per 100 WBC Normal 0.0 [facility] Comment on above: Performed By: #### HUA DE OLIVEIRA, CP #### [facility] [address] [place], [facility] Recruitment Director: Osmany Chow MD Platelet mean volume (Bld) [Entitic vol] 10.2 fL Normal 8.1-13.5 [facility] Comment on above: Performed By: #### HUA DE OLIVEIRA, CP #### [facility] [address] [place], [place] [address] Recruitment Director: Osmany Chow MD Platelets (Bld) [#/Vol] 255 10*3/uL Normal 138-453 [facility] Comment on above: Performed By: #### T HUA CHAPA, CP #### [facility] [address] [place], [place] [id number] Recruitment Director: Osmany Chow MD RBC (Bld) [#/Vol] 4.88 10*6/uL Normal 3.95-5.11 [facility] Comment on above: Performed By: #### T HUA CHAPA, CP #### [facility] [address] [place], [facility] Recruitment Director: Osmany Chow MD WBC (Bld) [#/Vol] 7.2 10*3/uL Normal 3.5-11.3 [facility] Comment on above: Performed By: #### T HUA CHAPA, CP #### [facility] [address] [place], [facility] Recruitment Director: Osmany Chow MD Auto Diff Performed NOT REPORTED Normal [facility] Comment on above: Performed By: #### T HUA CHAPA, CP #### [facility] [address] [place], [facility] Recruitment Director: Osmany Chow MD Platelets (Bld) [#/Vol] NOT REPORTED Normal [facility] Comment on above: Performed By: #### T HUA CHAPA, CP #### [facility] [address] [place], [place] [address] Recruitment Director: Osmany Chow MD RBC morphology finding Nom (Bld) NOT REPORTED Normal [facility] Comment on above: Performed By: #### T HUA CHAPA, CP #### [facility] [address] [place], [facility] Recruitment Director: Osmany Chow MD WBC Morphology NOT REPORTED Normal [facility] Comment on above: Performed By: #### T HUA CHAPA, CP #### [facility] [address] [place] [address] Recruitment Director: Osmany Chow MD CT HEAD WO CONTRASTon [...] Mireya Liu MD 04/27/19 Final result Normal [facility] CT Head WO Contraston 2018 No acute intracrania l abnormality. [facility] [place], [place] Vladimir, Mhpn Incoming Radiant Results From [facility] - 04/27/2019 3:57 PM EDT EXAMINATION: CT [...] soft tissues. IMPRESSION: No acute intracranial abnormality. [facility] CT OF T HE HEAD WITHOUT [...] of the visualized skull or soft tissues. [facility] Metabolic Profon 2018 (cont.) Normal [facility] Comment on above: Result Comment: Aver age GFR for 60-69 years old: 85 mL/min/1.73sq m Chronic Kidney Disease: <60 mL/min/1.73sq m Kidney failure: <15 mL/min/1.73sq m eGFR calculated using average adult body mass. Additional eGFR calculator available at: http://www.[employer]com/multiple_crcl_2012.htm Performed By: #### T HUA CHAPA CP #### [facility] [address] [place] [address] Recruitment Director: Osmany Chow MD Albumin [Mass/Vol] 4.6 g/dL Normal 3.5-5.2 [facility] Comment on above: Performed By: #### T HUA CHAPA CP #### [facility] [address] [place], [place] [id number] Recruitment Director: Osmany Chow MD Albumin/Globulin [Mass ratio] 1.4 {ratio} Normal 1.0-2.5 [facility] Comment on above: Performed By: #### T HUA CHAPA, CP #### [facility] [address] [place] [id number] Recruitment Director: Osmany Chow MD Alkaline Phos 129 U/L High 35-104 [facility] Comment on above: Performed By: #### T HUA CHAPA, CP #### [facility] [address] [place], [place] [id number] Recruitment Director: Osmany Chow MD ALT [Catalytic activity/Vol] 13 U/L Normal 5-33 [facility] Comment on above: Performed By: #### T HUA CHAPA, CP #### [facility] [address] [place], [place] [address] Recruitment Director: Osmany Chow MD Anion gap [Moles/Vol] 20 mmol/L High 9-17 [facility] Comment on above: Performed By: #### T HUA CHAPA, CP #### [facility] [address] [place], [place] [address] Recruitment Director: Osmany Chow MD AST [Catalytic activity/Vol] 16 U/L Normal <32 [facility] Comment on above: Performed By: #### T HUA CHAPA, CP #### [facility] [address] [place], [place] [address] Recruitment Director: Osmany Chow MD Bilirubin Ql (U) 0.36 mg/dL Normal 0.3-1.2 [facility] Comment on above: Performed By: #### T HUA CHAPA, CP #### [facility] [address] [place], [place] [address] Recruitment Director: Osmany Chow MD BUN/CRE Ratio 9 Normal 9-20 [facility] Comment on above: Performed By: #### T HUA CHAPA, CP #### [facility] [address] [place], [place] 4[address] Recruitment Director: Osmany Chow MD Calcium [Mass/Vol] 9.7 mg/dL Normal 8.6-10.4 [facility] Comment on above: Performed By: #### T HUA CHAPA, CP #### [facility] [address] [place], [place] [id number] Recruitment Director: Osmany Chow MD Chloride [Moles/Vol] 96 mmol/L Low 98-107 [facility] Comment on above: Performed By: #### T HUA CHAPA, CP #### [facility] [address] [place], [place] [address] Recruitment Director: Osmany Chow MD CO2 [Moles/Vol] 23 mmol/L Normal 20-31 [facility] Comment on above: Performed By: #### T HUA CHAPA, CP #### [facility] [address] [place], [place] [address] Recruitment Director: Osmany Chow MD Creatinine [Mass/Vol] 1.17 mg/dL High 0.50-0.90 [facility] Comment on above: Performed By: #### T HUA CHAPA, CP #### [facility] [address] [place], [place] 112[address] Recruitment Director: Osmany Chow MD GFR, Amer 57 mL/min Low >60 [facility] Comment on above: Performed By: #### T HUA CHAPA, CP #### [facility] [address] [place] [address] Recruitment Director: Osmany Chow MD GFR,non Amer 47 mL/min Low >60 [facility] Comment on above: Performed By: #### T HUA CHAPA, CP #### [facility] [address] [place], [place] [address] Recruitment Director: Osmany Chow MD Glucose [Mass/Vol] 185 mg/dL High 70-99 [facility] Comment on above: Performed By: #### T HUA CHAPA, CP #### [facility] [address] [place], [place] [address] Recruitment Director: Osmany Chow MD Potassium [Moles/Vol] 4.1 mmol/L Normal 3.7-5.3 [facility] Comment on above: Performed By: #### T HUA CHAPA, CP #### [facility] [address] [place], [place] [id number] Recruitment Director: Osmany Chow MD Protein [Mass/Vol] 7.8 g/dL Normal 6.4-8.3 [facility] Comment on above: Performed By: #### T HUA CHAPA, CP #### [facility] [address] [place], [place] [address] Recruitment Director: Osmany Chow MD Sodium [Moles/Vol] 139 mmol/L Normal 135-144 [facility] Comment on above: Performed By: #### T HUA CHAPA, CP #### [address] [place], [place] [address] Recruitment Director: Osmany Chow MD Staging: Normal [facility] Comment on above: Result Comment: Stag e 1: Some kidney damage normal GFR Stage 2: Mild kidney damage GFR 60-89 Stage 3: Moderate kidney damage GFR 30-59 Stage 4: Severe kidney damage GFR 15-29 Stage 5: Severe kidney damage GFR <15 ESRD - chronic treatment by dialysis or transplant Performed By: #### T HUA CHAPA, CP #### [facility] [address] [place], [place] [address] Recruitment Director: Osmany Chow MD Urea nitrogen [Mass/Vol] 11 mg/dL Normal 8-23 [facility] Comment on above: Performed By: #### T EDUARD, CDP, CP #### [facility] [address] [place] [address] Recruitment Director: Osmany Chow MD Comprehensive Metabolic Pane [facility] 04-27-2019 Albumin [Mass/Vol] 4.6 g/dL 3.5 - 5.2 g/dL [place], [place] Albumin/Globulin [Mass ratio] 1.4 {ratio} [place] ALP [Catalytic activity/Vol] 129 U/L High 35 - 104 U/L [place] ALT [Catalytic activity/Vol] 13 U/L 5 - 33 U/L [place] Anion gap [Moles/Vol] 20 mmol/L High 9 - 17 mmol/L [place] AST [Catalytic activity/Vol] 16 U/L <32 [place] Bilirubin Ql (U) 0.36 mg/dL 0.3 - 1.2 mg/dL [place] Bun/Cre Ratio 9 [place], [place] Calcium [Mass/Vol] 9.7 mg/dL 8.6 - 10. 4 mg/dL [place] Chloride [Moles/Vol] 96 mmol/L Low 98 - 10 7 mmol/L [place] CO2 [Moles/Vol] 23 mmol/L 20 - 31 mmol/L [place] Creatinine [Mass/Vol] 1.17 mg/dL High 0.5 - 0.9 mg/dL [place] GFR 57 mL/min Low >60 [place], [place] GFR Non- 47 mL/min Low >60 [place] Glucose [Mass/Vol] 185 mg/dL High 70 - 99 mg/dL [place] Interpretation and review of laboratory results Abnormal [place] Potassium [Moles/Vol] 4.1 mmol/L 3.7 - 5.3 mmol/L [place] Protein [Mass/Vol] 7.8 g/dL 6.4 - 8.3 g/dL [place] Sodium [Moles/Vol] 139 mmol/L 135 - 144 mmol/L [place] Urea nitrogen [Mass/Vol] 11 mg/dL 8 - 23 mg/dL [place] Metabolic Panelon 04-27-2019 GFR/1.73 sq M predicted among non-blacks MDRD (S/P/Bld) [Vol rate/Area] [place] Comment on above: Stage 1: Some [...] body mass. Additional eGFR calculator available at: http://www.[employer]/multiple_crcl_2012.htm Troponinon 04-27-2019 Troponin I.cardiac [Mass/Vol] ng/mL Normal <0.03 [facility] Comment on above: Result Comment: Trop onin T results cannot be compared to Troponin-I results. Performed By: #### T HUA CHAPA, CP #### [facility] [address] [place] [address] Recruitment Director: Osmany Chow MD Troponin I.cardiac [Mass/Vol] Normal [facility] Comment on above: Result Comment: Refe [...] By: #### T HUA CHAPA, CP #### [facility] [address] [place] [address] Recruitment Director: Osmany Chow MD Troponin I.cardiac [Mass/Vol] NOT REPORTED Normal 0-14 [facility] Comment on above: Performed By: #### T EDUARD, HUA, CP #### [facility] [address] [place] [address] Recruitment Director: Osmany Chow MD Troponin I.cardiac [Mass/Vol] [place] Comment on above: Reference Range: <0.03 [...] diagnosis. Troponin T.cardiac [Mass/Vol] ug/L <0.03 ng/mL [place] Comment on above: Troponin T results c annot be compared to Troponin-I results. Troponin, High Sensitivity NOT REPORTED 0 - 14 ng/L [place] Vital Signs Date Time Vital Sign Value Performing Clinician Facility 06-01-2024 13:37-0500 Diastolic blood pressure 60 mm[Hg] [facility] 06-01-2024 13:37-0500 Heart rate 79 /min [facility] 06-01-2024 13:37-0500 SaO2% (BldA) [Mass fraction] 97 % [facility] 06-01-2024 13:37-0500 Systolic blood pressure 102 mm[Hg] [facility] 05-14-2024 15:56-0400 Body height 168.9 cm Vinh Ray RESOURCE DIRECTOR Work Phone: [facility] 05-14-2024 15:56-0400 Body mass index (BMI) [Ratio] 28.94 kg/m2 Vinh Ray RESOURCE DIRECTOR Work Phone: [facility] 05-14-2024 15:56-0400 Body temperature 98.8 [degF] Vinh Ray RESOURCE DIRECTOR Work Phone: [facility] 05-14-2024 15:56-0400 Body weight 82.56 kg Vinh Ray RESOURCE DIRECTOR Work Phone: [facility] 05-14-2024 15:56-0400 Diastolic blood pressure 84 mm[Hg] Vinh Ray RESOURCE DIRECTOR Work Phone: [facility] 05-14-2024 15:56-0400 Heart rate 87 /min Vinh Ray RESOURCE DIRECTOR Work Phone: [facility] 05-14-2024 15:56-0400 SaO2% (BldA) [Mass fraction] 97 % Vinh Ray RESOURCE DIRECTOR Work Phone: [facility] 05-14-2024 15:56-0400 Systolic blood pressure 112 mm[Hg] Vinh Ray RESOURCE DIRECTOR Work Phone: [facility] 05-13-2024 14:01-0400 Diastolic blood pressure 64 mm[Hg] [facility] 05-13-2024 14:01-0400 Heart rate 97 /min [facility] 05-13-2024 14:01-0400 SaO2% (BldA) [Mass fraction] 97 % [facility] 05-13-2024 14:01-0400 Systolic blood pressure 102 mm[Hg] [facility] 04-14-2024 15:27-0400 Diastolic blood pressure 68 mm[Hg] [facility] 04-14-2024 15:27-0400 Heart rate 91 /min [facility] 04-14-2024 15:27-0400 SaO2% (BldA) [Mass fraction] 97 % [facility] 04-14-2024 15:27-0400 Systolic blood pressure 118 mm[Hg] [facility] 03-16-2024 13:29-0400 Diastolic blood pressure 70 mm[Hg] [facility] 03-16-2024 13:29-0400 Heart rate 72 /min [facility] 03-16-2024 13:29-0400 SaO2% (BldA) [Mass fraction] 97 % [facility] 03-16-2024 13:29-0400 Systolic blood pressure 122 mm[Hg] [facility] 02-26-2024 14:41-0400 Diastolic blood pressure 70 mm[Hg] [facility] 02-26-2024 14:41-0400 Heart rate 71 /min [facility] 02-26-2024 14:41-0400 SaO2% (BldA) [Mass fraction] 96 % [facility] 02-26-2024 14:41-0400 Systolic blood pressure 110 mm[Hg] [facility] 02-05-2024 14:09-0400 Diastolic blood pressure 80 mm[Hg] [facility] 02-05-2024 14:09-0400 Heart rate 80 /min [facility] 02-05-2024 14:09-0400 SaO2% (BldA) [Mass fraction] 97 % [facility] 02-05-2024 14:09-0400 Systolic blood pressure 130 mm[Hg] [facility] 01-07-2024 15:12-0400 Body height 165.1 cm [facility] 01-07-2024 15:12-0400 Diastolic blood pressure 62 mm[Hg] [facility] 01-07-2024 15:12-0400 Systolic blood pressure 108 mm[Hg] [facility] 12-11-2023 14:02-0400 Diastolic blood pressure 80 mm[Hg] [facility] 12-11-2023 14:02-0400 Heart rate 75 /min [facility] 12-11-2023 14:02-0400 SaO2% (BldA) [Mass fraction] 96 % [facility] 12-11-2023 14:02-0400 Systolic blood pressure 120 mm[Hg] [facility] 11-18-2023 15:28-0400 Diastolic blood pressure 80 mm[Hg] [facility] 11-18-2023 15:28-0400 Heart rate 83 /min [facility] 11-18-2023 15:28-0400 SaO2% (BldA) [Mass fraction] 98 % [facility] 11-18-2023 15:28-0400 Systolic blood pressure 110 mm[Hg] [facility] 05-27-2023 13:45-0400 Body height 165.1 cm Vazquez Villar Other [employer] Other 05-27-2023 13:45-0400 Diastolic blood pressure 80 mm[Hg] Vazquez Jian Other [employer] Other 05-27-2023 13:45-0400 SaO2% (BldA) [Mass fraction] 97 % Vazquez Jian Other [employer] Other 05-27-2023 13:45-0400 Systolic blood pressure 118 mm[Hg] Vazquez Jian Other [employer] Other 04-29-2023 13:30-0400 Body height 165.1 cm Vazquez Jian Other [employer] Other 04-29-2023 13:30-0400 Diastolic blood pressure 72 mm[Hg] Vazquez Jian Other [employer] Other 04-29-2023 13:30-0400 Systolic blood pressure 120 mm[Hg] Vazquez Jian Other [employer] Other 04-04-2023 14:30-0400 Diastolic blood pressure 70 mm[Hg] Vazquez Jian Other [employer] Other 04-04-2023 14:30-0400 SaO2% (BldA) [Mass fraction] 98 % Vazquez Jian Other [employer] Other 04-04-2023 14:30-0400 Systolic blood pressure 120 mm[Hg] Vazquez Jian Other [employer] Other 03-05-2023 11:00-0400 Body weight 75.84 kg Vazquez Jian Other [employer] Other 11-20-2022 12:15-0400 Body weight 73.94 kg Vazquez Jian Other [employer] Other 11-20-2022 12:15-0400 Diastolic blood pressure 84 mm[Hg] Vazquez Jian Other [employer] Other 11-20-2022 12:15-0400 SaO2% (BldA) [Mass fraction] 97 % Vazquez Jian Other [employer] Other 11-20-2022 12:15-0400 Systolic blood pressure 126 mm[Hg] Vazquez Jian Other [employer] Other 11-05-2022 15:15-0400 Body weight 77.02 kg Vazquez Jian Other [employer] Other 11-05-2022 15:15-0400 Diastolic blood pressure 60 mm[Hg] [facility]azquez Jian Other [employer] Other 11-05-2022 15:15-0400 SaO2% (BldA) [Mass fraction] 98 % Vazquez Jian Other [employer] Other 11-05-2022 15:15-0400 Systolic blood pressure 100 mm[Hg] Vazquez Jian Other [employer] Other 10-17-2022 15:30-0400 Body weight 77.52 kg Vazquez Jian Other [employer] Other 10-17-2022 15:30-0400 Diastolic blood pressure 70 mm[Hg] Vazquez Jian Other [employer] Other 10-17-2022 15:30-0400 SaO2% (BldA) [Mass fraction] 98 % Vazquez Villar Other [employer] Other 10-17-2022 15:30-0400 Systolic blood pressure 118 mm[Hg] Vazquez Villar Other [employer] Other 09-26-2022 13:30-0500 Body weight 76.75 kg Vazquez Villar Other [employer] Other 09-26-2022 13:30-0500 Diastolic blood pressure 88 mm[Hg] Vazquez Villar Other [employer] Other 09-26-2022 13:30-0500 SaO2% (BldA) [Mass fraction] 95 % Vazquez Villar Other [employer] Other 09-26-2022 13:30-0500 Systolic blood pressure 142 mm[Hg] Vazquez Villar Other [employer] Other 08-29-2022 12:45-0500 Body weight 76.66 kg Sheela Woodall Other [employer] Other 08-29-2022 12:45-0500 Diastolic blood pressure 60 mm[Hg] Sheela Woodall Other [employer] Other 08-29-2022 12:45-0500 SaO2% (BldA) [Mass fraction] 96 % Sheela Woodall Other [employer] Other 08-29-2022 12:45-0500 Systolic blood pressure 110 mm[Hg] Sheela Woodall Other [employer] Other 08-06-2022 14:00-0500 Body weight 76.2 kg Vazquezkeanu Villar Other [employer] Other 08-06-2022 14:00-0500 Diastolic blood pressure 80 mm[Hg] Vazquez Jian Other [employer] Other 08-06-2022 14:00-0500 SaO2% (BldA) [Mass fraction] 99 % [facility]az[facility] Jian Other [employer] Other 08-06-2022 14:00-0500 Systolic blood pressure 126 mm[Hg] [facility] Jian Other [employer] Other 07-04-2022 16:15-0500 Diastolic blood pressure 80 mm[Hg] Vazquez Jian Other [employer] Other 07-04-2022 16:15-0500 SaO2% (BldA) [Mass fraction] 97 % Vazquez Jian Other [employer] Other 07-04-2022 16:15-0500 Systolic blood pressure 120 mm[Hg] Vazquez Jian Other [employer] Other 03-20-2022 11:30-0400 Body weight 79.38 kg Vazquez Jian Other [employer] Other 03-20-2022 11:30-0400 Diastolic blood pressure 76 mm[Hg] Vazquez Jian Other [employer] Other 03-20-2022 11:30-0400 SaO2% (BldA) [Mass fraction] 99 % Vazquez Jian Other [employer] Other 03-20-2022 11:30-0400 Systolic blood pressure 120 mm[Hg] Vazquez Jian Other [employer] Other 02-05-2022 15:15-0400 Diastolic blood pressure 80 mm[Hg] Vazquez Jian Other [employer] Other 02-05-2022 15:15-0400 SaO2% (BldA) [Mass fraction] 99 % Vazquez Jian Other [employer] Other 02-05-2022 15:15-0400 Systolic blood pressure 138 mm[Hg] Vazquez Jian Other [employer] Other 01-19-2022 11:45-0400 Body weight 77.57 kg Vazquez Villar Other [employer] Other 01-19-2022 11:45-0400 Diastolic blood pressure 70 mm[Hg] Vazquez Jian Other [employer] Other 01-19-2022 11:45-0400 SaO2% (BldA) [Mass fraction] 99 % Vazquez Villar Other [employer] Other 01-19-2022 11:45-0400 Systolic blood pressure 118 mm[Hg] Vazquez Jian Other [employer] Other 12-04-2021 15:30-0400 Body weight 77.66 kg Vazquez Villar Other [employer] Other 12-04-2021 15:30-0400 Diastolic blood pressure 76 mm[Hg] Vazquez Jian Other [employer] Other 12-04-2021 15:30-0400 SaO2% (BldA) [Mass fraction] 96 % Vazquez Villar Other [employer] Other 12-04-2021 15:30-0400 Systolic blood pressure 118 mm[Hg] Vazquez Jian Other [employer] Other 11-06-2021 12:30-0400 Body weight 77.02 kg Vazquez Villar Other [employer] Other 11-06-2021 12:30-0400 Diastolic blood pressure 60 mm[Hg] Vazquez Jian Other [employer] Other 11-06-2021 12:30-0400 SaO2% (BldA) [Mass fraction] 98 % Vazquez Villar Other [employer] Other 11-06-2021 12:30-0400 Systolic blood pressure 110 mm[Hg] Vazquez Jian Other [employer] Other 10-19-2021 16:45-0400 Body weight 76.93 kg Vazquez Villar Other [employer] Other 10-19-2021 16:45-0400 Diastolic blood pressure 80 mm[Hg] Vazquez Jian Other [employer] Other 10-19-2021 16:45-0400 SaO2% (BldA) [Mass fraction] 98 % Vazquez Villar Other [employer] Other 10-19-2021 16:45-0400 Systolic blood pressure 140 mm[Hg] Vazquez Villar Other [employer] Other 10-02-2021 14:30-0500 Body weight 77.47 kg Vazquez Villar Other [employer] Other 10-02-2021 14:30-0500 Diastolic blood pressure 82 mm[Hg] Vazquez oRmanoky Other [employer] Other 10-02-2021 14:30-0500 SaO2% (BldA) [Mass fraction] 99 % Vazquez Villar Other [employer] Other 10-02-2021 14:30-0500 Systolic blood pressure 110 mm[Hg] Vazquez Romanoky Other [employer] Other 04-27-2019 17:30-0400 BP Diastolic 67 mm[Hg] Frances [employer] , [place] 04-27-2019 17:30-0400 BP Systolic 125 mm[Hg] [facility] [place] 04-27-2019 17:30-0400 Pulse (Heart Rate) 66 /min [facility] [place] 04-27-2019 14:47-0400 BMI (Body Mass Index) 25.02 kg/m2 Frances [employer] [facility], [place] 04-27-2019 14:47-0400 Body Temperature 97.5 [degF] Frances [employer] [facility], [place] 04-27-2019 14:47-0400 Body weight 70.31 kg Frances [employer] [facility] , [place] 04-27-2019 14:47-0400 Pulse Oximetry 99 % Frances [employer] [facility] , [place] 04-27-2019 14:47-0400 Respiratory Rate 16 /min [facility] [place] Encounters Encounter Date Encounter Type Care Provider Facility Start: 06-11-2024 End: 06-11-2024 ambulatory [facility] Work Phone: Start: 06-11-2024 End: 06-11-2024 Patient encounter procedure [facility] Physician [facility] Work Phone: Start: 06-01-2024 End: 06-01-2024 ambulatory [facility] Work Phone: Start: 06-01-2024 End: 06-01-2024 Patient encounter procedure [facility] Physician [facility] Work Phone: Start: 05-21-2024 End: 05-21-2024 ambulatory [facility] Work Phone: Start: 05-21-2024 End: 05-21-2024 Patient encounter procedure [facility] Work Phone: Start: 05-21-2024 Non-patient / Non-visit [facility] Work Phone: Start: 05-14-2024 End: 05-14-2024 Office outpatient visit 25 minutes Vinh Ray RESOURCE DIRECTOR Work Phone: [facility] Comment on above: Acute non-recurrent pansinusitis (Primary Dx) Start: 05-14-2024 End: 05-14-2024 ambulatory VINH RAY Not Available Start: 05-13-2024 End: 05-13-2024 ambulatory [facility] Work Phone: Start: 05-13-2024 End: 05-13-2024 Patient encounter procedure [facility] Physician [facility] Work Phone: Start: 04-14-2024 End: 04-14-2024 ambulatory [facility] Work Phone: Start: 04-14-2024 End: 04-14-2024 Patient encounter procedure [facility] Work Phone: Start: 03-26-2024 Non-patient / Non-visit [facility] Physician [facility] Work Phone: Start: 03-26-2024 End: 03-26-2024 ambulatory [facility] Work Phone: Start: 03-26-2024 End: 03-26-2024 Patient encounter procedure [facility] Physician [facility] Work Phone: Start: 03-16-2024 End: 03-16-2024 ambulatory [facility] Work Phone: Start: 03-16-2024 End: 03-16-2024 Patient encounter procedure [facility] Physician [facility] Work Phone: Start: 03-12-2024 End: 03-12-2024 ambulatory VINH RAY Not Available Start: 03-05-2024 Non-patient / Non-visit [facility] Physician [facility] Work Phone: Start: 03-05-2024 End: 03-05-2024 ambulatory [facility] Work Phone: Start: 03-05-2024 End: 03-05-2024 Patient encounter procedure [facility] Physician [facility] Work Phone: Start: 02-26-2024 End: 02-26-2024 ambulatory [facility] Work Phone: Start: 02-26-2024 End: 02-26-2024 Patient encounter procedure [facility] Physician [facility] Work Phone: Start: 02-13-2024 Non-patient / Non-visit [facility] Physician [facility] Work Phone: Start: 02-13-2024 End: 02-13-2024 ambulatory [facility] Work Phone: Start: 02-13-2024 End: 02-13-2024 Patient encounter procedure [facility] Physician [facility] Work Phone: Start: 02-05-2024 End: 02-05-2024 ambulatory [facility] Work Phone: Start: 02-05-2024 End: 02-05-2024 Patient encounter procedure [facility] Work Phone: Start: 01-07-2024 End: 01-07-2024 ambulatory [facility] Work Phone: Start: 01-07-2024 End: 01-07-2024 Patient encounter procedure [facility] Work Phone: Start: 12-24-2023 End: 12-24-2023 ambulatory [facility] Work Phone: Start: 12-24-2023 End: 12-24-2023 Patient encounter procedure [facility] Physician [facility] Work Phone: Start: 12-11-2023 End: 12-11-2023 Patient encounter procedure [facility] Work Phone: Start: 12-03-2023 End: 12-03-2023 ambulatory [facility] Work Phone: Start: 12-03-2023 End: 12-03-2023 Patient encounter procedure [facility] Physician [facility] Work Phone: Start: 12-03-2023 Non-patient / Non-visit [facility] Physician [facility] Work Phone: Start: 11-18-2023 End: 11-18-2023 ambulatory [facility] Work Phone: Start: 11-18-2023 End: 11-18-2023 Patient encounter procedure [facility] Work Phone: Start: 09-20-2023 End: 09-20-2023 ambulatory MERCY WILSON Not Available Start: 07-17-2023 End: 07-17-2023 ambulatory JOHNY GALAN Not Available Start: 06-18-2023 End: 06-18-2023 ambulatory MERCY WILSON Not Available Start: 05-27-2023 End: 05-27-2023 ambulatory Vazquez Jian Other [employer] Other Start: 05-27-2023 Office outpatient vi sit 15 minutes Vazquez Jian [facility] Start: 05-09-2023 (PROC) PROCEDURE Vazquezkeanu [facility] [place] Start: 05-09-2023 End: 05-09-2023 ambulatory Vazquez Jian Other [employer] Other Start: 04-29-2023 End: 04-29-2023 ambulatory Vazquez Jian Other [employer] Other Start: 04-29-2023 Office outpatient vi sit 25 minutes Vazquez Jian [facility] Start: 04-04-2023 End: 04-04-2023 ambulatory Vazquez Jian Other [employer] Other Start: 04-04-2023 Office outpatient vi sit 15 minutes Vazquez Jian [facility] Start: 03-14-2023 (PROC) PROCEDURE Vazquezkeanu Gibbons [facility] [place] Start: 03-14-2023 End: 03-14-2023 ambulatory Vazquez Jian Other [employer] Other Start: 03-05-2023 End: 03-05-2023 ambulatory Vazquez Jian Other [employer] Other Start: 03-05-2023 Office outpatient vi sit 25 minutes Vazquez Jian [facility] Start: 02-26-2023 (PROC) PROCEDURE Vazquezkeanu [facility] [place] Start: 02-26-2023 End: 02-26-2023 ambulatory Vazquez Jian Other [employer] Other Start: 11-20-2022 End: 11-20-2022 ambulatory Vazquez Jian Other [employer] Other Start: 11-20-2022 Office outpatient vi sit 15 minutes Vazquez Jian [facility] Start: 11-05-2022 End: 11-05-2022 ambulatory Vazquez Jian Other [employer] Other Start: 11-05-2022 Office outpatient vi sit 25 minutes Vazquez Jian [facility] Start: 10-25-2022 (PROC) PROCEDURE Vazquezkeanu Villar [facility] Start: 10-25-2022 End: 10-25-2022 ambulatory Vazquez Jian Other [employer] Other Start: 10-17-2022 End: 10-17-2022 ambulatory Vazquez Jian Other [employer] Other Start: 10-17-2022 Office outpatient vi sit 25 minutes Vazquez Jian [facility] Start: 10-15-2022 End: 10-15-2022 ambulatory Rugen M [place] Facility:[facility] Start: 09-26-2022 End: 09-26-2022 ambulatory Vazquez Jian Other [employer] Other Start: 09-26-2022 Office outpatient vi sit 25 minutes Vazquez Jian [facility] Start: 08-29-2022 End: 08-29-2022 ambulatory Sheela Woodall Other [employer] Other Start: 08-29-2022 Office outpatient vi sit 15 minutes Sheela Woodall [facility] Start: 08-29-2022 Telephone encounter Vazquez Jian [facility] Start: 08-14-2022 (PROC) PROCEDURE Vazquezkeanu Villar [facility] Start: 08-14-2022 End: 08-14-2022 ambulatory Vazquezkeanu Villar Other [employer] Other Start: 08-06-2022 End: 08-06-2022 ambulatory Vazquez Jian Other [employer] Other Start: 08-06-2022 Office outpatient vi sit 25 minutes Vazquez Jian [facility] Start: 08-03-2022 End: 08-04-[address] MERCED BEAL Facility:[facility] Start: 07-19-2022 (PROC) PROCEDURE Vazquez Villar [facility] Start: 07-19-2022 End: 07-19-2022 ambulatory Vazquez Jian Other [employer] Other Start: 07-12-2022 End: 07-13-[address] JOHNY GALAN Facility:[facility] Start: 07-04-2022 End: 07-04-2022 ambulatory Vazquez Jian Other [employer] Other Start: 07-04-2022 Office outpatient vi sit 25 minutes Vazquez Jian [facility] Start: 06-26-2022 (Procedure) Short Vazquez Villar [facility] Start: 06-26-2022 End: 06-26-2022 ambulatory Vazquez Jian Other [employer] Other Start: 03-20-2022 End: 03-20-2022 ambulatory Vazquez Jian Other [employer] Other Start: 03-20-2022 Office outpatient vi sit 25 minutes Vazquez Jian [facility] Start: 02-05-2022 End: 02-05-2022 ambulatory Vazquez Jian Other [employer] Other Start: 02-05-2022 Office outpatient vi sit 15 minutes Vazquez Jian [facility] Start: 01-19-2022 End: 01-19-2022 ambulatory Vazquez Jian Other [employer] Other Start: 01-19-2022 Office outpatient vi sit 25 minutes Vazquez Jian [facility] Start: 01-01-2022 End: 01-01-2022 ambulatory Vazquez Edwige Villar Facility:[facility] Start: 01-01-2022 End: 01-01-2022 Patient encounter procedure MD Merced Beal [facility] Phone[facility] Start: 12-04-2021 End: 12-04-2021 ambulatory Vazquezkeanu Villar Other [employer] Other Start: 12-04-2021 Office outpatient vi sit 25 minutes Vazquez Jian [facility] Start: 11-16-2021 (Procedure) Short Vazquez Villar [facility] Start: 11-16-2021 End: 11-16-2021 ambulatory Vazquez Jian Other [employer] Other Start: 11-06-2021 End: 11-06-2021 ambulatory Vazquez Jian Other [employer] Other Start: 11-06-2021 Office outpatient vi sit 25 minutes Vazquez Jian [facility] Start: 10-26-2021 (Procedure) Short Vazquez Villar [facility] Start: 10-26-2021 End: 10-26-2021 ambulatory Vazquez Jian Other [employer] Other Start: 10-19-2021 End: 10-19-2021 ambulatory Vazquez Jian Other [employer] Other Start: 10-19-2021 Office outpatient vi sit 25 minutes Vazquez Jian [facility] Start: 10-12-2021 (Procedure) Short Vazquez Villar [facility] Start: 10-12-2021 End: 10-12-2021 ambulatory Vazquez Villar Other [employer] Other Start: 10-02-2021 End: 10-02-2021 ambulatory Vazquez Villar Other [employer] Other Start: 10-02-2021 Office outpatient vi sit 25 minutes Vazquez Villar [facility] Start: 04-27-2019 Emergency department patient visit MERCED BEAL [facility] Start: 04-27-2019 End: 04-27-2019 Emergency department patient visit Frances Hurt Work Phone: [facility] ED Comment on above: Dizziness (Primary D x); Paresthesia Start: 02-28-2017 End: 03-01-2017 Ambulatory Patrick Coley Facility::[id number] Start: 04-04-2016 End: 04-05-2016 Ambulatory [place] Facility:[facility] Procedures Date Procedure Procedure Detail Performing Clinician Start: 08-26-2023 Mammography Vinh bird NP Work Phone: Start: 01-01-2022 Radiologic examinati on of knee MD Merced Beal Work Phone: Start: 04-27-2019 Ct head/brain w/o co ntrast material RUGEN EMIGDIO Start: 04-27-2019 ORTHOSTATIC BLOOD TX ESSURE AND PULSE RUGEN EMIGDIO Start: 04-27-2019 [...] 08-22-2028 Screening for malignant neoplasm of colon [facility] Start: 03-16-2025 End: 03-16-2025 Patient encounter procedure 03/16/2025 11:30 AM EDT Office Visit [facility] [address] [facility] [address] [place] [id number] Vinh Ray NP [address] [place] [address] [place] [address] [facility] Start: 03-12-2025 Medicare Annual Wellness (AWV) Medicare Annual Wellness (AWV) [facility] Start: 08-26-2024 Screening for malignant neoplasm of breast Mammogram [facility] Start: 03-29-2024 Influenza vaccination Influenza Vaccine (#1) [facility] Start: 12-23-2023 Pneumococcal Vaccine: 65+ Years (2 of 2 - PCV) Pneumococcal Vaccine: 65+ Years (2 of 2 - PCV) [facility] Start: 03-29-2019 Influenza vaccination Flu vaccine (#1) [place] Start: 01-20-2018 Lipid screen Lipid screen [place] Start: 01-20-2015 Breast cancer screen Breast cancer screen [place] Start: 2008 Colon cancer screen colonoscopy Colon cancer screen colonoscopy [place] Start: 2008 Shingles Vaccine (1 of 2) Shingles Vaccine (1 of 2) [place] Start: 1988 Screening for malignant neoplasm of cervix [facility] Start: 12-23-1979 Cervical cancer screen Cervical cancer screen [place] Start: 12-23-1979 Screening for malignant neoplasm of cervix Pap Smear [facility] Start: 1977 DTaP/Tdap/Td vaccine (1 - Tdap) DTaP/Tdap/Td vaccine (1 - Tdap) [place] Start: 1973 HIV screen HIV screen [place] Start: 1958 Hepatitis C screen Hepatitis C screen [place] Start: 1958 Screening for malignant neoplasm of colon [facility] EKG 12 Lead EKG 12 Lead ECG STAT 04/27/2019 2:47 PM EDT [place] Immunizations Immunization Date Immunization Notes Care Provider Patric jacobo 05-29-2023 influenza, injectabl e, quadrivalent, preservative free Vinh Ray RESOURCE DIRECTOR Work Phone: [facility] Work Phone: 05-29-2023 influenza virus vaccine, unspecified formulation Vinh Ray RESOURCE DIRECTOR Work Phone: [facility] 08-03-2022 pneumococcal polysaccharide vaccine, 23 valent Vinh Ray RESOURCE DIRECTOR Work Phone: [facility] 06-09-2022 Moderna Bivalent Booster Vaccination Vinh Ray RESOURCE DIRECTOR Work Phone: [facility] 05-03-2022 Influenza, injectabl e, Madin [place] Canine Kidney, preservative free, quadrivalent Vinh Ray RESOURCE DIRECTOR Work Phone: [facility] 06-19-2021 influenza, injectabl e, quadrivalent, preservative free Vinh Ray RESOURCE DIRECTOR Work Phone: [facility] 05-12-2020 influenza, injectabl e, quadrivalent, preservative free Vinh Ray RESOURCE DIRECTOR Work Phone: [facility] 07-06-2019 tetanus toxoid, redu ray diphtheria toxoid, and acellular pertussis vaccine, adsorbed Vazquez Villar Other [facility] 05-25-2019 influenza, injectabl e, madin ilan canine kidney, preservative free Vinh [place] RESOURCE DIRECTOR Work Phone: [facility] 04-28-2019 influenza, injectabl e, quadrivalent, preservative free Vinh Flor RESOURCE DIRECTOR Work Phone: [facility] 05-07-2017 seasonal influenza, intradermal, preservative free Vinh [place] RESOURCE DIRECTOR Work Phone: [facility] 05-09-2016 influenza virus vaccine, unspecified formulation [facility] 05-09-2016 influenza, injectabl e, quadrivalent, contains preservative Vinh [place] RESOURCE DIRECTOR Work Phone: [facility] 05-09-2016 influenza, injectable,quadrivalent , preservative free, pediatric Vazquez Villar Other [facility] Other Payers Date Payer Category Payer Medicaid [place] [id number] 2022 Self-pay [id number] 2021 Medicare (Managed Care) [employer] Member Subscriber Plan / Payer (Effective 2021-Present) Name: Ela Padilla Relation to Subscriber: Self Name: Ela Padilla Payer ID: Not on file Group ID: [id number] Type: Not on file Address: [address] [place] [id number] 2019 Private Health Insurance [id number] 2019 Private Health Insurance FRACISCO YAP xxxxxxxxxx 2019-Present [phone] [address] [place] [address] xxxxxxxxxx [id number] 2017 Medicare [id number] 2017 Medicare MEDICARE MEDICAR E PART A AND B xxxxxxxxxxx 2017-Present [phone] [place] [address] xxxxxxxxxxx [id number] 1959 Medicaid [id number] 1959 Unknown [id number] 1958 Unknown [id number]. 173 1958 Unknown [id number] 2.840.1.081699.3.579.2. 593 1958 Unknown [id number]. 593 1958 Unknown [id number] 2.16.840.1.532180.3.579.2. 1259 1958 Unknown [id number] 2.16.840.1.147105.3.579.2. 1259 1958 Unknown [id number] 2.16.840.1.676167.3.579.2. 1259 1958 Unknown [id number] 2.16.840.1.534974.3.579.2. 1259 1958 Unknown [id number] 2..[id number]. 1259 Medicare [place] MediBlue Dual Adv [id number] Medicare [id number] Unknown [id number] Unknown [id number] 2..[id number]. 531 Unknown [id number] 2..840.1.034379.3.579.2. 531 Social History Date Type Detail Facility Start: 04-27-2019 End: 02-12-2023 Tobacco smoking status NHIS Never smoker [facility] Start: 04-27-2019 End: 05-14-2024 Alcohol intake No [facility] Sex Assigned At Not on file [place] Start: 1960 Sex Assigned At Female [facility] Start: 02-12-2023 Tobacco use and exposure [...] (finding) [facility] Tobacco smoking stat us NMIS Unknown if ever smoked [facility] Work Phone: Start: 06-11-2024 Sex Female (finding) [facility] Clinical Notes 11-07-2015 to 05-14-2024 Vinh Ray, RESOURCE DIRECTOR - 05/14/2024 4:00 PM EDT Note Date [...] follow-ups on file. documented in this encounter [facility] 03-16-2024 Evaluation note Diagnosis Onset Date Resolution [...] er 2023 1:25pm Sacroiliitis acute May 1:25pm [facility] Work Phone: 1(366) 468-618310-30-2023 Evaluation note* Encounter Date Diagnosis Assessment Notes [...] (ICD-10 - G89.29) Follow up as needed. [facility] Other 10-02-2023 Evaluation note* Encounter Date Diagnosis [...] - G89.29) Follow up in 4 weeks. [facility] Other 09-07-2023 Evaluation note* Encounter Date Diagnosis [...] joint injections in the future if needed [facility] Other 08-08-2023 Evaluation note* Encounter Date Diagnosis [...] (ICD-10 - G89.29) Follow up after procedure [facility] Other 04-25-2023 Evaluation note* Encounter Date Diagnosis [...] call the office if her symptoms worsen. [facility] Other 04-10-2023 Evaluation note* Encounter Date Diagnosis [...] (ICD-10 - G89.29) Folllow up after imaging [facility] Other 03-22-2023 Evaluation note* Encounter Date Diagnosis [...] (ICD-10 - G89.29) Folllow up after imaging [facility] Other 03-01-2023 Evaluation note* Encounter Date Diagnosis [...] (ICD-10 - G89.29) Folllow up after imaging [facility] Other 02-01-2023 Evaluation note* Encounter Date Diagnosis [...] - G89.29) Follow up in 4 weeks. [facility] Other 02-01-2023 Evaluation note* Encounter Date Diagnosis Assessment Notes Treatment Notes Treatment Clinical Notes Aug, Lumbosacral spondylosis (ICD-10 - M47.817) [facility] Other 01-09-2023 Evaluation note* Encounter Date Diagnosis [...] - G89.29) Continue with current treatment plan [facility] Other 12-07-2022 Evaluation note* Encounter Date Diagnosis [...] - G89.29) Continue with current treatment plan [facility] Other 08-23-2022 Evaluation note* Encounter Date Diagnosis [...] proceeding with gel injections under ultrasound guidance [facility] Other 07-11-2022 Evaluation note* Encounter Date Diagnosis [...] - G89.29) Follow up in 4 weeks [facility] Other 06-24-2022 Evaluation note* Encounter Date Diagnosis [...] current treatment plan. Follow up after procedure. [facility] Other 05-09-2022 Evaluation note* Encounter Date Diagnosis [...] pain November, Chronic pain (ICD-10 - G89.29) [facility] Other 04-11-2022 Evaluation note* Encounter Date Diagnosis [...] (ICD-10 - G89.29) Continue with surgical consult [facility] Other 03-24-2022 Evaluation note* Encounter Date Diagnosis [...] - G89.29) Continue with current treatment plan [facility] Other 03-07-2022 Evaluation note* Encounter Date Diagnosis [...] - G89.29) Continue with current treatment plan [facility] Other 04-11-2016 History general Narrative - Reported* [...] History cholecystectomy 03/09/2016 Hospitalization History SEE ABOVE [facility] [employer] Other Evaluation noteNo assessment information available [facility] Work Phone: evaluinuse [facility] [employer] Other evaluqjytn note* Diagnosis Onset Date Resolution Status Chronic pain acute Lumbar radiculopathy acute Lumbosacral spondylosis acut e [facility] Work Phone: Evaluation note* Diagnosis Onset Date Resolution Status Chronic pain acute Lumbar radiculopathy acute Lumbosacral spondylosis acut e Chronic pain acute Lumbar radiculopathy acute Lumbosacral spondylosis acut e Sacroiliitis acute [facility] Work Phone: evaluation note* Diagnosis Onset Date Resolution Status Lumbosacral spondylosis acut e Other chronic pain acute Sacroiliitis acute [facility] Work Phone: Evaluation note* Diagnosis Onset Date Resolution Status Lumbosacral spondylosis acut e Other chronic pain acute Sacroiliitis acute Lumbosacral spondylosis acut e Other chronic pain acute Sacroiliitis acute [facility] Work Phone: Evaluation note* Diagnosis Onset Date Resolution Status Lumbosacral spondylosis acut e Other chronic pain acute Sacroiliitis acute Lumbosacral spondylosis acut e Other chronic pain acute Sacroiliitis acute Chronic pain acute Lumbar radiculopathy acute Lumbosacral spondylosis acut e Sacroiliitis acute [facility] Work Phone: Evaluation note* Diagnosis Onset Date Resolution Status Lumbosacral spondylosis acut e Other chronic pain acute Sacroiliitis acute Lumbosacral spondylosis acut e Other chronic pain acute Sacroiliitis acute Chronic pain acute Lumbar radiculopathy acute Lumbosacral spondylosis acut e Sacroiliitis acute Chronic pain acute Lumbar radiculopathy acute Lumbosacral spondylosis acut e Sacroiliitis acute [facility] Work Phone: Evaluation note* Diagnosis Onset Date Resolution Status Lumbosacral spondylosis acut e Other chronic pain acute Sacroiliitis acute Chronic pain acute Lumbar radiculopathy acute Lumbosacral spondylosis acut e Sacroiliitis acute Chronic pain acute Lumbar radiculopathy acute Lumbosacral spondylosis acut e Sacroiliitis acute Chronic pain acute Lumbar radiculopathy acute Lumbosacral spondylosis acut e Sacroiliitis acute [facility] Work Phone: Evaluation note* Diagnosis Onset Date Resolution Status Chronic pain acute Lumbar radiculopathy acute Lumbosacral spondylosis acut e Sacroiliitis acute Chronic pain acute Lumbar radiculopathy acute Lumbosacral spondylosis acut e Sacroiliitis acute Chronic pain acute Lumbar radiculopathy acute Lumbosacral spondylosis acut e Sacroiliitis acute Lumbar radiculopathy acute Lumbosacral spondylosis acut e Other chronic pain acute Sacroiliitis acute [facility] Work Phone: Evaluation note* Diagnosis Acute non-recurrent [...] e Other chronic pain acute Sacroiliitis acute [facility] Work Phone: History general Narrative - Reported* Type Description Date Medical History THYROID CANCER Surgical History THYROID 2016 Surgical History GALLBLADDER Surgical History C SECTION 1982 Surgical History ENDOMETRIOSIS Hospitalization History SEE ABOVE [facility] Other Summary Purpose Family History Relationship Condition Age at Onset Recorded Date/T padmini brother Alzheimer's dementia Unknown father Unknown Alzheimer's dementia Unknown Hypertension Unknown Not Specified Unknown Relationship Condition Age at Onset Recorded Date/T padmini brother Alzheimer's dementia Unknown father Unknown Alzheimer's dementia Unknown Hypertension Unknown mother Unknown Advance Directives Documents on File Type Date Recorded Patient 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 * Numbness and Tingling (Egyptian) * Dizziness (Egyptian) documented in this encounter Assessments Diagnosis Dizziness- [...] section and content) DATE CREATED AUTHOR 01/22/2018 [facility] DATE CREATED AUTHOR AUTHOR'S ORGANIZ ATION 01/22/2018 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 [facility] [employer] [facility]. provides no warranty or guarantee of the accuracy or completeness of information in this document.
== END 2024-07-10 13:28 | disposition home or self-care (01) ==
LOC: US 13:27
PROVIDERS: PCP Family Medicine; Visit Provider Otolaryngology
DX: E28.39 Other primary ovarian failure (principal); M81.0 Age-related osteoporosis without current pathological fracture; C73 Malignant neoplasm of thyroid gland
CPT/HCPCS: 76536; 77080

== ENCOUNTER 2024-08-27 12:55 | Outpatient (OUT) | payer MEDICARE, MEDICAID, SELFPAY ==
--- NOTE | 2024-08-27 12:57 | MM_ITS ---
Patient Name: JUAN DANIEL PADILLA MR#: [id number] : 1960 Exam Date: 08/27/2024 Ordering Doctor: DR TOMY BEAL M.D. RADIOLOGY REPORT PROCEDURE: MM TOMOSYNTHESIS SCREENING BI COMPARISON: MM TOMOSYNTHESIS SCREENING BI, 08/26/2023. MG MAMM SCREEN 3D AL CAD, 08/03/2022. MG MAMM SCREEN 3D AL CAD, 08/01/2021. MG MAMM AL SCRN W CAD DIG, 01/20/2013. INDICATIONS: Screening Calculator Name NCI Breast Cancer Risk Assessment Tool 5 Year Breast Cancer Risk 1.20% Lifetime Breast Cancer Risk 4.60% Personal Breast Cancer No Personal Ovarian Cancer No Treatments Thyroidectomy Family Cancers None LOCATION: The [facility] BREAST COMPOSITION: There are scattered areas of fibroglandular density. FINDINGS: DIAGNOSTIC CATEGORY 1--NEGATIVE. RIGHT BREAST: No significant suspicious finding. No significant change has occurred. LEFT BREAST: No significant suspicious finding. No significant change has occurred. RECOMMENDATIONS: ROUTINE MAMMOGRAM AND CLINICAL EVALUATION IN 12 MONTHS. PLEASE NOTE: A NORMAL MAMMOGRAM DOES NOT EXCLUDE THE POSSIBILITY OF BREAST CANCER. A CLINICALLY SUSPICIOUS PALPABLE LUMP SHOULD BE BIOPSIED. Dictated by: Konstantin Perez M.D. on 08/27/2024 at 16:17 Approved by: Konstantin Perez M.D. on 08/27/2024 at 16:21
--- OUTSIDE RECORDS SUMMARY | 2024-08-27 13:01 | XMS_ITS | CCD ---
Author Organization [facility] Care Team Providers Care Scene [employer] Light[employer] Lecturer Name Role Phone Jeffry Woodall Unavailable Unavailable Jose C Jeffry Unavailable Unavailable SELF, REFERRED Unavailable Unavailable SELF, REFERRED Unavailable Unavailable Patrick Coley Unavailable Unavailable OSMANY GAMINO Unavailable Unavailable MERCED BEAL Primary Care Unavailable FRANCES HURT Attending Unavailable Merced Beal Primary Care Provider [phone] MD Merced Beal Primary Care Provider MD [...] Unavailable WEST, DR CEDRIC Abdi Consulting Unavailable Woodall, Sheela Unavailable Merced Beal Primary Care Unavailable Vazquez Villar Attending Unavailable Vazquez Villar Admitting Unavailable Vazquez Villar Attending Unavailable Vazquez Villar Admitting Unavailable Merced Beal Primary Care Unavailable Merced Beal MD Primary Care Provider [phone] [facility]SON Attending Unavailable VINH RAY Attending Unavailable VINH RAY Attending Unavailable ELLY GALAN Attending Unavailable MERCED BEAL Referring Unavailable Allergies Allergy Classification Reported Allergen(s) Allergy Type Date of Onset Reaction(s) Facility cyclobenzaprine (1 source) cyclobenzaprine Drug Allergy 02-05-20 24 headaches, HEADACHE [facility] house dust allergenic extract (1 source) house dust allergenic extract Drug Allergy 02-05-20 24 Abdominal Pain [facility] Mold (1 source) Mold Substance Allergy 02-05-20 24 Abdominal Pain [facility] Penicillins (antibiotic) (1 source) Penicillins Drug Allergy 02-05-20 24 [facility] (14 sources) Penicillins Propensity to adverse reactions to drug 12-03-19 13 [place], [place] (20 sources) cyclobenzaprine; Translations: [Flexeril] Drug Allergy 11-02-19 16 HEADACHE [facility] (20 sources) Bleach Propensity to adverse reactions Unknown [employer] [facility] [employer] Other (1 source) diazePAM Drug Allergy 11-02-19 16 [facility] (1 source) gabapentin Drug Allergy 11-02-19 16 [facility] (1 source) Hypochlorite Drug Allergy 11-02-19 16 [facility] (1 source) Penicillins Drug allergy (disorder) 10-05-19 16 [facility] (3 sources) Dust Propensity to adverse reactions Unknown [employer] Other (15 sources) Mold Propensity to adverse reactions 01-07-20 24 Unknown, Abdominal Pain [facility] (3 sources) Penicillin Drug Allergy [facility] [employer] [facility] [employer] Other (17 sources) cyclobenzaprine Drug Allergy 02-13-20 23 Headache, headaches, HEADACHE [facility] (13 sources) house dust allergenic extract Drug Allergy 12-11-19 24 Itching, Abdominal Pain [facility] (1 source) Mold Extract Drug Allergy 12-11-19 24 Unknown Reaction [facility] (14 sources) Bleach (Sodium Hypochlorite) Allergy to substance 12-11-19 24 Unknown Reaction, Abdominal Pain [facility] (4 sources) Hypochlorite Drug Allergy 02-13-20 23 [facility] (4 sources) Penicillin G Drug Allergy 02-13-20 23 [facility] (4 sources) Sulfamethoxazole / Trimethoprim Drug Allergy 06-18-20 23 Swelling [facility] Work Phone: Medications Current Medications [...] Active Calcium Carb-Cholecalciferol (CALCIUM 500 +D PO) (4 sources) take 1 tablet by mouth in [...] twelve hours cholecalciferol 0.025 mg oral capsule (5 sources) Vitamin D Start: take 25 ug [...] tablet by mouth every twe lve hours ibuprofen 600 mg oral tablet (20 sources) Nonsteroidal Anti-inflammatory Drug Start: 02-27-2016 take 1 tablet by mouth every six hours as needed for pain ibuprofen (ADVIL;MOTRIN) 600 MG tablet Take 1 tablet by mouth every 6 hours as needed for Pain 30 tablet 0 02/27/2016 Active take 1 tablet by lambert th three times daily at mealtime as needed Advil 200 MG 1 tablet with food or milk as needed Orally Three times a day Active lactobacillus rhamnosus gg [id number] unt oral capsule (1 source) Start: 12-11-2023 Lactobacillus Rhamnosus Gg (Probiotic Digestive Care) 20 billion cell capsule Active CELL PO December 11, 2023 12:00am linseed oil 1200 mg oral cap saniya (5 sources) Flaxseed, Linsee d, (Flaxseed Oil) 1200 MG capsule as directed Orally Active Flaxseed, Linsee d, (FLAXSEED OIL) 1000 MG CAPS Take 500 mg by mouth daily. 0 Active Magnesium (3 sources) Magnesium Active Magnesium Oxide (4 sources) magnesium oxide (Mag-Ox) 400 mg tablet 400 mg in the morning. Active mecobalamin (1 source) Start: 4 take 1000 ug by mouth once daily Mecobalamin (Vitamin B12) Active 1000 MCG PO Daily December 11, 2023 12:00am allow to dissolve in mouth OR may chew lightly before swallowing meloxicam 15 mg oral tablet (20 sources) Nonsteroidal Anti-inflammatory Drug Start: 4 End: 4 take 0.5-1 tablets by mouth once daily meloxicam (Mobic) 15 MG tablet TAKE 1/2 TO 1 (ONE-HALF TO ONE) TABLET BY MOUTH ONCE DAILY 07/10/2024 Active Start: 11-23-2019 take 0.5-1 tablets by mouth on ce daily as needed plecanatide 3 mg oral tablet (11 sources) Start: 03-12-2024 End: 03-12-2025 take 1 tablet by mouth once daily [...] Shukla ( ) Plecanatide 3 mg tablet (2 sources) Start: 01-07-2024 take 1 tablet by mouth [...] every 6 to 8 hours 120 April 13, 2024 11:00pm [place] Compounded [...] 8 hours as needed Topical SZSTANDARD1 cream (2 sources) Start: 04-14-2024 SZSTANDARD1 cr eam Active 1 [...] Dec, Active tiZANidine 4 mg oral tablet (14 sources) Central alpha-2 Adrenergic Agonist Start: 08-10-2023 take 1 tablet by mouth twice daily [...] po once a day Active Turmeric extract (20 sources) Start: 01-07-2024 Turmeric 400 m g [...] e vitamin e 180 mg oral capsule (20 sources) Start: 01-07-2024 take 1 capsule by mouth once daily Vitamin E (Dl, Acetate) 180 mg (400 unit) capsule Active 1 CAP PO Daily January 06, 2024 11:00pm [employer] capsule Orally Once a day; Note: Source Status: Taking; Provider: Jian Shukla ( ) Start: 01-07-2024 take 1 capsule by mo uth once daily Vitamin E (Dl, Acetate) Active [...] same time. Active take 1 capsule by mo ut every twenty-four hours Vitamin E 180 MG [...] as directed. 6 tablet 09/27/2023 05/14/2024 Discontinued gabapentin 300 mg oral capsule (17 sources) Anti-epileptic Agent Start: 01-07-2024 End: 07-08-2024 take 1 capsule by mouth twice daily Gabapentin 300 mg capsule Discontinued MG PO January 06, 2024 11:00pm July 08, 2024 3:52pm [employer] capsule Orally bid (*do not refill until 05/04/23); Note: Source Status: Not-Takingundefine [id number] chronic pain; Refills: 0; Provider: Jian Gibbons Start: 04-04-2023 take 1 capsule by mo uth every twelve hours Gabapentin 300 MG 1 capsule Orally bid for 30 days Mar, Active guaiFENesin 400 mg oral tablet (1 source) [...] mg as directed Orally as directed Not-Taking pregabalin 50 mg oral capsule (1 source) Start: 07-08-2024 End: 08-05-2024 take 1 capsule by mouth twice daily Pregabalin 50 mg capsule Discontinued 50 MG PO Twice daily 60 July 08, 2024 12:00am August 05, 2024 2:30pm 50 ml sodium chloride 9 mg/ml injection [...] cholecystitis without obstruction] Episodic Cancer of thyroid (9 sources) Papillary thyroid carcinoma; Translations: [Malignant neoplasm of thyroid gland] Onset: 02-12-2023 02-12-2023 Chronic Miscellaneous mental health disorders (7 sources) Primary insomnia; Translations: [Primary insomnia] Onset: 02-12-2023 02-12-2023 Chronic Osteoarthritis (20 sources) Osteoarthritis of left knee joint; Translations: [Unilateral primary osteoarthritis, left knee] Onset: 01-19-2022 Resolved: 03-20-2022 Chronic Other acquired deformities (3 sources) Spondylolisthesis; Translations: [Spondylolisthesis, lumbar region] Episodic Other bone disease and musculoskeletal deformities (3 sources) Idiopathic scoliosis; Translations: [Other idiopathic scoliosis, lumbar region] Chronic Other bone disease and musculoskeletal deformities (4 sources) Idiopathic scoliosis of lumbar spine; Translations: [...] storage disorders] Chronic Other upper respiratory disease (7 sources) Seasonal allergic rhinitis; Translations: [Other seasonal [...] Onset: 10-02-2021 Resolved: 11-06-2021 Episodic Thyroid disorders (18 sources) Nontoxic multinodular goiter; Translations: [Thyroid nodule] Onset: 07-12-2022 Chronic Unclassified (2 sources) Unknown / UNK(Unknown) Onset: 04-04-2016 Unclassified (1 source) M25.562 - Pain in left knee; Translations: [M25.562 - Pain in left knee] Onset: 01-01-2022 Past or Other Problems Problem Classification Problem Date Documented Da te Episodic/Chronic Conditions associated with dizziness or vertigo (1 source) Dizziness; Translations: [Dizziness] Episodic Mood disorders (4 sources) Mood disorders Onset: 03-12-2024 03-12-2024 Other acquired deformities (4 sources) Lumbar spondylolisthesis; Translations: [Spondylolisthesis , lumbar region] Onset: 02-12-2023 02-12-2023 Episodic Other connective tissue disease (7 sources) Fibromyalgia; Translations: [Fibromyalgia] Onset: 02-12-2023 02-12-2023 Episodic Other eye disorders (4 sources) Xanthelasma; Translations: [Xanthelasma of unspecified eye, unspecified eyelid] Onset: 02-12-2023 02-12-2023 Episodic Other gastrointestinal disorders (7 sources) Slow transit constipation; Translations: [Slow transit constipation] Onset: 02-12-2023 02-12-2023 Episodic Other nervous system disorders (1 source) Paresthesia; Translations: [Paresthesia] Episodic Other nervous system disorders (7 sources) Paresthesia of lower extremity; Translations: [Paresthesia of skin] Onset: 02-12-2023 02-12-2023 Episodic Other non-traumatic joint disorders (2 sources) Pain in left knee Onset: 01-19-2022 Resolved: 02-05-2022 Episodic Other nutritional; endocrine; and metabolic disorders (4 sources) Overweight; Translations: [Overweight] Onset: 02-12-2023 02-12-2023 Episodic Other screening for suspected conditions (not mental disorders or infectious disease) (11 sources) Encounter for screening mammogram for malignant neoplasm of breast; Translations: [Mammography abnormal] Onset: 08-03-2022 Episodic Residual codes; unclassified (4 sources) Bilateral lower limb edema; Translations: [Localized edema] Onset: 02-12-2023 02-12-2023 Episodic Results Test Name Value Interpretation Reference Range Facility CBC (H/H, RBC, INDICES, WBC, PLT)on 07-11-2024 Erythrocyte distribution width (RBC) [Ratio] 13.0 % Normal 11.0-15.0 [facility] Comment on above: Performed By: #### 8 99, , 7599, 175 #### [facility] [place] [address] Teacher'S Aide: Cleve Newton MD Hematocrit (Bld) [Volume fraction] 42.2 % Normal 35.0-45.0 [facility] Comment on above: Performed By: #### 8 , , 7599, 175 #### [facility] [place] [address] Teacher'S Aide: Cleve Newton MD Hemoglobin (Bld) [Mass/Vol] 14.1 g/dL Normal 11.7-15.5 [facility] Comment on above: Performed By: #### 8 , , 7599, 1758 #### [facility] [place] [address] Teacher'S Aide: Cleve Newton MD MCH (RBC) [Entitic mass] 30.5 pg Normal 27.0-33.0 [facility] Comment on above: Performed By: #### 8 , , 7599, 175 #### [facility] [place] [address] Teacher'S Aide: Cleve Newton MD MCHC (RBC) [Mass/Vol] 33.4 g/dL Normal 32.0-36.0 [facility] Comment on above: Result Comment: For adults, a slight decrease in the calculated MCHC value (in the range of 30 to 32 g/dL) is most likely not clinically significant; however, it should be interpreted with caution in correlation with other red cell parameters and the patient's clinical condition. Performed By: #### 8 , , 7600, 1759 #### [facility] of [place] [address] Teacher'S Aide: Cleve Newton MD MCV (RBC) [Entitic vol] 91.3 fL Normal 80.0-100.0 [facility] Comment on above: Performed By: #### 8 99, 01644, 7600, 1759 #### [facility] of [place] [address] Teacher'S Aide: Cleve Newton MD Platelet mean volume (Bld) [Entitic vol] 10.8 fL Normal 7.5-12.5 [facility] Comment on above: Performed By: #### 8 99, 87959, 7600, 1759 #### [facility] of [place] [address] Teacher'S Aide: Cleve Newton MD Platelets (Bld) [#/Vol] 213 10*3/uL Normal 140-400 [facility] Comment on above: Performed By: #### 8 99, 75753, 7600, 1759 #### [facility] of [place] [address] Teacher'S Aide: Cleve Newton MD RBC (Bld) [#/Vol] 4.62 10*6/uL Normal 3.80-5.10 [facility] Comment on above: Performed By: #### 8 99, 41353, 7600, 1759 #### [facility] [place] [address] Teacher'S Aide: Cleve Newton MD WBC (Bld) [#/Vol] 6.6 10*3/uL Normal 3.8-10.8 [facility] Comment on above: Performed By: #### 8 99, 85745, 7600, 1759 #### [facility] of [place] [address] Teacher'S Aide: Cleve Newton MD COMPREHENSIVE METABOLIC PANE [facility] 07-11-2024 Albumin [Mass/Vol] 4.0 g/dL Normal 3.6-5.1 [facility] Comment on above: Performed By: #### 8 99, 35183, 0, 175 #### [facility] of [address], [address] [place] [address] Teacher'S Aide: Cleve Newton MD Albumin/Globulin [Mass ratio] 1.9 {ratio} Normal 1.0-2.5 [facility] Comment on above: Performed By: #### 8 99, 13818, 0, 175 #### [facility] of [address], [address] [place] [address] Teacher'S Aide: Cleve Newton MD ALP [Catalytic activity/Vol] 84 U/L Normal 37-153 [facility] Comment on above: Performed By: #### 8 99, 28813, 7600, 175 #### [facility] [place] [address] Teacher'S Aide: Cleve Newton MD ALT [Catalytic activity/Vol] 11 U/L Normal 6-29 [facility] Comment on above: Performed By: #### 8 99, 66738, 7600, 175 #### [facility] of [address], [address] [place] [address] Teacher'S Aide: Cleve Newton MD AST [Catalytic activity/Vol] 12 U/L Normal 10-35 [facility] Comment on above: Performed By: #### 8 99, 56671, 7600, 175 #### [facility] [place] [address] Teacher'S Aide: Cleve Newton MD Bilirubin [Mass/Vol] 0.5 mg/dL Normal 0.2-1.2 [facility] Comment on above: Performed By: #### 8 99, 64311, 7600, 175 #### [facility] [place] [address] Teacher'S Aide: Cleve Newton MD BUN/CREATININE RATIO SEE NOTE: Normal 6-22 [facility] Comment on above: Result Comment: Not Reported: BUN and Creatinine are within reference range. Performed By: #### 8 99, 00628, 7600, 175 #### [facility] [place] [address] Teacher'S Aide: Cleve Newton MD Calcium [Mass/Vol] 8.9 mg/dL Normal 8.6-10.4 [facility] Comment on above: Performed By: #### 8 99, 89625, 0, 175 #### [facility] [place] [address] Teacher'S Aide: Cleve Newton MD Chloride [Moles/Vol] 109 mmol/L Normal 98-110 [facility] Comment on above: Performed By: #### 8 99, 79956, 7599, 175 #### [facility] [place] [address] Teacher'S Aide: Cleve Newton MD CO2 [Moles/Vol] 26 mmol/L Normal 20-32 [facility] Comment on above: Performed By: #### 8 99, , 7599, 175 #### [facility] [place] [address] Teacher'S Aide: Cleve Newton MD Creatinine [Mass/Vol] 0.62 mg/dL Normal 0.50-1.05 [facility] Comment on above: Performed By: #### 8 99, 75070, 7599, 175 #### [facility] [place] [address] Teacher'S Aide: Cleve Newton MD GFR/1.73 sq M.predicted among non-blacks MDRD (S/P/Bld) [Vol rate/Area] 99 mL/min/{1.73_m2} Normal > OR = 60 [facility] Comment on above: Performed By: #### 8 99, 33089, 7600, 175 #### [facility] [place] [address] Teacher'S Aide: Cleve Newton MD Globulin (S) [Mass/Vol] 2.1 g/dL Normal 1.9-3.7 [facility] Comment on above: Performed By: #### 8 99, 86037, 7600, 1759 #### [facility] [address], [address] [place] [address] Teacher'S Aide: Cleve Newton MD Glucose [Mass/Vol] 81 mg/dL Normal 65-139 [facility] Comment on above: Result Comment: Non-fasting reference interval Performed By: #### 8 99, 67505, 7600, 1759 #### [facility] of [address], [address] [place] [address] Teacher'S Aide: Cleve Newton MD Potassium [Moles/Vol] 4.0 mmol/L Normal 3.5-5.3 [facility] Comment on above: Performed By: #### 8 99, 35774, 0, 175 #### [facility] [place] [address] Teacher'S Aide: Cleve Newton MD Protein [Mass/Vol] 6.1 g/dL Normal 6.1-8.1 [facility] Comment on above: Performed By: #### 8 99, 22680, 0, 175 #### [facility] [place] [address] Teacher'S Aide: Cleve Newton MD Sodium [Moles/Vol] 143 mmol/L Normal 135-146 [facility] Comment on above: Performed By: #### 8 99, 71758, 7600, 175 #### [facility] [place] [address] Teacher'S Aide: Cleve Newton MD Urea nitrogen [Mass/Vol] 13 mg/dL Normal 7-25 [facility] Comment on above: Performed By: #### 8 99, 54430, 7600, 175 #### [facility] of [place] [address] Teacher'S Aide: Cleve Newton MD LIPID PANEL, [facility] [place] 12- Cholesterol [Mass/Vol] 185 mg/dL Normal <200 [facility] Comment on above: Order Comment: FASTI NG:NO FASTING: NO Performed By: #### 8 99, 27721, 7600, 1759 #### [facility] [address], [address] [place] [address] Teacher'S Aide: Cleve Newton MD Cholesterol in HDL [Mass/Vol] 48 mg/dL Low > OR = 50 [facility] Comment on above: Order Comment: FASTI NG:NO FASTING: NO Performed By: #### 8 99, 65828, 7600, 1759 #### [facility] [address], [address] [place] [address] Teacher'S Aide: Cleve Newton MD Cholesterol in LDL [Mass/Vol] 117 mg/dL High [facility] Comment on above: Order Comment: FASTI NG:NO FASTING: NO Result Comment: Refe rence range: <100 Desirable range <100 mg/dL for primary prevention; <70 mg/dL for patients with CHD or diabetic patients with > or = 2 CHD risk factors. LDL-C is now calculated using the Ulysses calculation, which is a validated novel method providing better accuracy than the Friedewald equation in the estimation of LDL-C. Jhon MIRANDA et al. JARVIS. 2013;310(19): 5791-7954 (http://education.[employer].HStreaming/faq/ZFF536) Performed By: #### 8 99, 10159, 7600, 1759 #### [facility] [address], [address] [place] [address] Teacher'S Aide: Cleve Newton MD Cholesterol.total/C holesterol in HDL [Mass ratio] 3.9 {ratio} Normal <5.0 [facility] Comment on above: Order Comment: FASTI NG:NO FASTING: NO Performed By: #### 8 99, 21828, 7600, 1759 #### [facility] [place] [address] Teacher'S Aide: Cleve Newton MD NON HDL CHOLESTEROL 137 mg/dL (calc) High <130 [facility] Comment on above: Order Comment: FASTI NG:NO FASTING: NO Result Comment: For patients with diabetes plus 1 major ASCVD risk factor, treating to a non-HDL-C goal of <100 mg/dL (LDL-C of <70 mg/dL) is considered a therapeutic option. Performed By: #### 8 99, 05783, 7600, 1759 #### [facility] [address], [address] [place] [address] Teacher'S Aide: Cleve Newton MD Triglyceride [Mass/Vol] 102 mg/dL Normal <150 [facility] Comment on above: Order Comment: FASTI NG:NO FASTING: NO Performed By: #### 8 99, 51861, 7600, 1759 #### [facility] [address], [address] [place] [address] Teacher'S Aide: Cleve Newton MD TSHon 07-11-2024 TSH Qn 1.64 m[IU]/L Normal 0.40-4.50 [facility] Comment on above: Performed By: #### 8 99, 65196, 7600, 1759 #### [facility] [address], [address] [place] [address] Teacher'S Aide: Cleve Newton MD XR pre/post mri xrayon 10-16 XR pre/post mri xray [place] [address] MRI Report Signed Patient: Ela Padilla MR#: [id number] 0 : 1960 Acct:[id number] Age/Sex: 61 / F ADM Date: 10/15/22 Loc: Room: Type: [facility] Attending Dr: Vazquez Villar MD Copies to: Vazquez Villar MD Ordering Provider: Vazquez Villar MD Date of Service: 10/15/22 MR/MR lumbar spine wo con: M54.16 ([id number]) XR/XR pre/post mri xray: M54.16 MR lumbar [...] Frances Hernandez M.D.10/15/2022 10:19 PM Dictation Location: [place] [address] Transcribed By: [facility] 10/15/222218 Dictated By: Frances Hernandez II, MD 10/15/222212 Signed By: 10/15/222218 [facility] MG MAMM SCREEN 3D AL CADon 08-03-2022 MG MAMM SCREEN 3D AL CAD Patient: KIRAN PADILLA Exam Date: 08/03/2022 : 1960 Gender:F Ordering : DR MERCED BEAL M.D. Admission #: [id number] Family : Order #: [id number] CLICK HERE TO VIEW EXAM RADIOLOGY REPORT [...] No Treatments Thyroidectomy Family Cancers None LOCATION: [facility] BREAST COMPOSITION: Scattered areas fibroglandular density. FINDINGS: [...] Kerr MD on 08/03/2022 at 15:03 Normal [facility] US THYROIDon 07-12-2022 US THYROID EXAMINATION: [...] by: CEDRIC KERR Date: 2022-07-12 19:03 Normal [facility] XR knee LT 4V*on 01-01-2022 XR knee LT 4V* [facility] [place] [address] [place] [address] XRay Report Signed Patient: Ela Padilla MR#: [id number] 0 : 1960 Acct:[id number] Age/Sex: 61 / F ADM Date: 01/01/22 Loc: XD Room: Type: [facility] Attending Dr: Vazquez Villar MD Ordering Provider: [...] Mercy Salgado M.D.01/01/2022 4:46 PM Dictation Location: [place] [address] Transcribed By: [facility] 01/01/221645 Dictated By: Mercy Salgado MD 01/01/221643 Signed By: 01/01/221645 [facility] CBC Auto Differentialon 03-31 Basophils (Bld) [#/Vol] 0.07 10*3/uL [place] Basophils/100 WBC (Bld) 1 % 0 - 2 % [place] Differential Type NOT REPORTED [place] Eosinophils (Bld) [#/Vol] 0.08 10*3/uL [place] Eosinophils/100 WBC (Bld) 1 % 1 - 4 % [place] Erythrocyte distribution width (RBC) [Ratio] 12.8 % 11.8 - 14.4 % [place] Hematocrit (Bld) [Volume fraction] 43.7 % 36.3 - 47.1 % [place] Hemoglobin (Bld) [Mass/Vol] 14.6 g/dL 11.9 - 15.1 g/dL [place] Immature granulocytes (Bld) [#/Vol] 10*3/uL [place] Immature granulocytes (Bld) [#/Vol] 0 % 0 [place] Interpretation and review of laboratory results Abnormal [place] Lymphocytes (Bld) [#/Vol] 1.92 10*3/uL [place] Lymphocytes/100 WBC (Bld) 27 % 24 - 43 % [place] MCH (RBC) [Entitic mass] 29.9 pg 25.2 - 33.5 pg [place] MCHC (RBC) [Mass/Vol] 33.4 g/dL 28.4 - 34.8 g/dL [place] MCV (RBC) [Entitic vol] 89.5 fL 82.6 - 102.9 fL [place] Monocytes (Bld) [#/Vol] 0.37 10*3/uL [place] Monocytes/100 WBC (Bld) 5 % 3 - 12 % [place] Platelet mean volume (Bld) [Entitic vol] 10.2 fL 8.1 - 13.5 fL [place] Platelets (Bld) [#/Vol] 255 10*3/uL [place] Platelets (Bld) [#/Vol] NOT REPORTED [place] RBC (Bld) [#/Vol] 4.88 10*6/uL 3.95 - 5.1 1 m/uL [place] RBC morphology finding Nom (Bld) NOT REPORTED [place] Segmented neutrophils/100 WBC (Bld) 66 % High 36 - 65 % [place] Segs Absolute 4.70 [place] WBC (Bld) [#/Vol] 0.0 10*3/uL 0.0 per 10 0 WBC [place] WBC (Bld) [#/Vol] 7.2 10*3/uL [place] WBC Morphology NOT REPORTED [place], [place] CBC with Diffon 04-27-2019 Abs. Basophil 0.07 k/uL Normal 0.00-0.20 [facility] Comment on above: Performed By: #### T HUA CHAPA, CP #### [address] [place] [address] Silhouette Artist: Osmany Chow MD Abs.Imm.Granulocyte <0.03 Normal 0.00-0.[address] [facility] Comment on above: Performed By: #### T HUA CHAPA, CP #### [address] [place] [address] Silhouette Artist: Osmany Chow MD Abs.Neutrophil (Seg) 4.70 k/uL Normal 1.50-8.[address] [facility] Comment on above: Performed By: #### T HUA CHAPA, CP #### [address] [place] [facility] Silhouette Artist: Osmany Chow MD Basophils/100 WBC (Bld) 1 % Normal 0-[address] [facility] Comment on above: Performed By: #### HUA DE OLIVEIRA, CP #### [facility] [address] [place], [facility] Silhouette Artist: Osmany Chow MD Eosinophils (Bld) [#/Vol] 0.08 10*3/uL Normal 0.00-0.[address] [facility] Comment on above: Performed By: #### HUA DE OLIVEIRA, CP #### [place] [facility] [address] [place] [address] Silhouette Artist: Osmany Chow MD Eosinophils/100 WBC (Bld) 1 % Normal 1-[address] [facility] Comment on above: Performed By: #### HUA DE OLIVEIRA, CP #### [address] [place], [place] [address] Silhouette Artist: Osmany Chow MD Erythrocyte distribution width (RBC) [Ratio] 12.8 % Normal 11.8-14.[address] [facility] Comment on above: Performed By: #### HUA DE OLIVEIRA, CP #### [address] [place], [facility]83 Silhouette Artist: Osmany Chow MD Hematocrit (Bld) [Volume fraction] 43.7 % Normal 36.3-47.[address] [facility] Comment on above: Performed By: #### HUA DE OLIVEIRA, CP #### [address] [place], [facility]83 Silhouette Artist: Osmany Chow MD Hemoglobin (Bld) [Mass/Vol] 14.6 g/dL Normal 11.9-15.[address] [facility] Comment on above: Performed By: #### HUA DE OLIVEIRA, CP #### [facility] [address] [place], [facility]83 Silhouette Artist: Osmany Chow MD Immature granulocytes (Bld) [#/Vol] 0 % Normal [address] [facility] Comment on above: Performed By: #### HUA DE OLIVEIRA, CP #### [facility] [address] [place], [facility]83 Silhouette Artist: Osmany Chow MD Lymphocytes (Bld) [#/Vol] 1.92 10*3/uL Normal 1.10-3.[address] [facility] Comment on above: Performed By: #### HUA DE OLIVEIRA, CP #### [facility] [address] [place], [facility]83 Silhouette Artist: Osmany Chow MD Lymphocytes/100 WBC (Bld) 27 % Normal 24-[address] [facility] Comment on above: Performed By: #### HUA DE OLIVEIRA, CP #### [address] [place] [address] Silhouette Artist: Osmany Chow MD MCH (RBC) [Entitic mass] 29.9 pg Normal 25.2-33.[address] [facility] Comment on above: Performed By: #### HUA DE OLIVEIRA, CP #### [address] [place] [id number] Silhouette Artist: Osmany Chow MD MCHC (RBC) [Mass/Vol] 33.4 g/dL Normal 28.4-34.[address] [facility] Comment on above: Performed By: #### HUA DE OLIVEIRA, CP #### [facility] [address] [place] [address] [place] [id number] Silhouette Artist: Osmany Chow MD MCV (RBC) [Entitic vol] 89.5 fL Normal 82.6-102.[address] [facility] Comment on above: Performed By: #### HUA DE OLIVEIRA, CP #### [facility] [address] [place] [id number] Silhouette Artist: Osmany Chow MD Monocytes (Bld) [#/Vol] 0.37 10*3/uL Normal 0.10-1.[address] [facility] Comment on above: Performed By: #### HUA DE OLIVEIRA, CP #### [facility] [address] [place], [place] [id number] Silhouette Artist: Osmany Chow MD Monocytes/100 WBC (Bld) 5 % Normal 3-[address] [facility] Comment on above: Performed By: #### HUA DE OLIVEIRA, CP #### [facility] [address] [place] [address] Silhouette Artist: Osmany Chow MD Neutrophil (Seg) 66 % High 36-65 [facility] Comment on above: Performed By: #### HUA DE OLIVEIRA, CP #### [facility] [address] [place], [place] [id number] Silhouette Artist: Osmany Chow MD NRBC Automated 0.0 per 100 WBC Normal 0.[address] [facility] Comment on above: Performed By: #### HUA DE OLIVEIRA, CP #### [facility] [address] [place] [address] Silhouette Artist: Osmany Chow MD Platelet mean volume (Bld) [Entitic vol] 10.2 fL Normal 8.1-13.[address] [facility] Comment on above: Performed By: #### HUA DE OLIVEIRA, CP #### [facility] [address] [place] [address] Silhouette Artist: Osmany Chow MD Platelets (Bld) [#/Vol] 255 10*3/uL Normal 138-[address] [facility] Comment on above: Performed By: #### HUA DE OLIVEIRA, CP #### [facility] [address] [place], [place] [id number] Silhouette Artist: Osmany Chow MD RBC (Bld) [#/Vol] 4.88 10*6/uL Normal 3.95-5.[address] [facility] Comment on above: Performed By: #### T HUA CHAPA, CP #### [facility] [address] [place], [place] [id number] Silhouette Artist: Osmany Chow MD WBC (Bld) [#/Vol] 7.2 10*3/uL Normal 3.5-11.[address] [facility] Comment on above: Performed By: #### T HUA CHAPA, CP #### [facility] [address] [place] [address] Silhouette Artist: Osmany Chow MD Auto Diff Performed NOT REPORTED Normal [facility] Comment on above: Performed By: #### T HUA CHAPA, CP #### [facility] [address] [place] [address] Silhouette Artist: Osmany Chow MD Platelets (Bld) [#/Vol] NOT REPORTED Normal [facility] Comment on above: Performed By: #### T HUA CHAPA, CP #### [facility] [address] [place] [address] [place] [address] Silhouette Artist: Osmany Chow MD RBC morphology finding Nom (Bld) NOT REPORTED Normal [facility] Comment on above: Performed By: #### T HUA CHAPA, CP #### [facility] [address] [place], [place] [id number] Silhouette Artist: Osmany Chow MD WBC Morphology NOT REPORTED Normal [facility] Comment on above: Performed By: #### T HAU CHAPA, CP #### [facility] [address] [place], [place] [id number] Silhouette Artist: Osmany Chow MD CT HEAD WO CONTRASTon [...] Mireya Liu MD 04/27/19 Final result Normal [facility] CT Head WO Contraston 2018 No acute intracrania l abnormality. [facility] [employer] [place], Mhpn Incoming Radiant Results From [employer]/Pacs - 04/27/2019 3:57 PM EDT EXAMINATION: CT [...] soft tissues. IMPRESSION: No acute intracranial abnormality. [facility] Keynoir EXAMINATION: CT OF T HE HEAD WITHOUT [...] of the visualized skull or soft tissues. [facility], [place] Comp Metabolic Profon 2018 (cont.) Normal [facility] Comment on above: Result Comment: Aver age GFR for 60-69 years old: 85 mL/min/1.73sq m Chronic Kidney Disease: <60 mL/min/1.73sq m Kidney failure: <15 mL/min/1.73sq m eGFR calculated using average adult body mass. Additional eGFR calculator available at: http://www.[employer]Streaming/multiple_crcl_2012.htm Performed By: #### T HUA CHAPA CP #### [address] [place] [address] Silhouette Artist: Osmany Chow MD Albumin [Mass/Vol] 4.6 g/dL Normal 3.5-5.[address] [facility] Comment on above: Performed By: #### T HUA CHAPA CP #### [address] [place] [address] Silhouette Artist: Osmany Chow MD Albumin/Globulin [Mass ratio] 1.4 {ratio} Normal 1.0-2.[address] [facility] Comment on above: Performed By: #### T HUA CHAPA, CP #### [address] [place] [address] Silhouette Artist: Osmany Chow MD Alkaline Phos 129 U/L High 35-104 [facility] Comment on above: Performed By: #### T HUA CHAPA, CP #### [facility] [address] [place], [place] [id number] Silhouette Artist: Osmany Chow MD ALT [Catalytic activity/Vol] 13 U/L Normal 5-[address] [facility] Comment on above: Performed By: #### T EDUARD CDP, CP #### [facility] [address] [place], [place] [id number] Silhouette Artist: Osmany Chow MD Anion gap [Moles/Vol] 20 mmol/L High 9-[address] [facility] Comment on above: Performed By: #### T HUA CHAPA, CP #### [facility] [address] [place], [place] [id number] Silhouette Artist: Osmany Chow MD AST [Catalytic activity/Vol] 16 U/L Normal <[address] [facility] Comment on above: Performed By: #### T HUA CHAPA, CP #### [facility] [address] [place], [place] [id number] Silhouette Artist: Osmany Chow MD Bilirubin Ql (U) 0.36 mg/dL Normal 0.3-1.2 [facility] Comment on above: Performed By: #### T HUA CHAPA, CP #### [facility] [address] [place], [place] [id number] Silhouette Artist: Osmany hCow MD BUN/CRE Ratio 9 Normal 9-20 [facility] Comment on above: Performed By: #### T HUA CHAPA, CP #### [facility] [address] [place], [place] [id number] Silhouette Artist: Osmany Chow MD Calcium [Mass/Vol] 9.7 mg/dL Normal 8.6-10.[address] [facility] Comment on above: Performed By: #### T HUA CHAPA, CP #### [facility] [address] [place], [place] [id number] Silhouette Artist: Osmany Chow MD Chloride [Moles/Vol] 96 mmol/L Low 98-[address] [facility] Comment on above: Performed By: #### T HUA CHAPA, CP #### [facility] [address] [place] [address] Silhouette Artist: Osmany Chow MD CO2 [Moles/Vol] 23 mmol/L Normal 20-31 [facility] Comment on above: Performed By: #### T HUA CHAPA, CP #### [facility] [address] [place], [place] [address] Silhouette Artist: Osmany Chow MD Creatinine [Mass/Vol] 1.17 mg/dL High 0.50-0.[address] [facility] Comment on above: Performed By: #### HUA DE OLIVEIRA, CP #### [facility] [address] [place], [place] [id number] Silhouette Artist: Osmany Chow MD GFR, Amer 57 mL/min Low >60 [facility] Comment on above: Performed By: #### T HUA CHAPA, CP #### [facility] [address] [place] [address] Silhouette Artist: Osmany Chow MD GFR,non Amer 47 mL/min Low >[address] [facility] Comment on above: Performed By: #### T HAU CHAPA, CP #### [facility] [address] [place], [place] [address] Silhouette Artist: Osmany Chow MD Glucose [Mass/Vol] 185 mg/dL High 70-[address] [facility] Comment on above: Performed By: #### HUA DE OLIVEIRA, CP #### [facility] [address] [place] [address] Silhouette Artist: Osmany Chow MD Potassium [Moles/Vol] 4.1 mmol/L Normal 3.7-5.[address] [facility] Comment on above: Performed By: #### HUA DE OLIVEIRA, CP #### [facility] [address] [place] [address] [place] [address] Silhouette Artist: Osmany Chow MD Protein [Mass/Vol] 7.8 g/dL Normal 6.4-8.[address] [facility] Comment on above: Performed By: #### HUA DE OLIVEIRA, CP #### [address] [place] [address] Silhouette Artist: Osmany Chow MD Sodium [Moles/Vol] 139 mmol/L Normal 135-[address] [facility] Comment on above: Performed By: #### HUA DE OLIVEIRA, CP #### [address] [place] [address] Silhouette Artist: Osmany Chow MD Staging: Normal [facility] Comment on above: Result Comment: Stag e 1: Some kidney damage normal GFR Stage 2: Mild kidney damage GFR 60-89 Stage 3: Moderate kidney damage GFR 30-59 Stage 4: Severe kidney damage GFR 15-29 Stage 5: Severe kidney damage GFR <15 ESRD - chronic treatment by dialysis or transplant Performed By: #### HUA DEO LIVEIRA, CP #### [address] [place] [address] Silhouette Artist: Osmany Chow MD Urea nitrogen [Mass/Vol] 11 mg/dL Normal 8-[address] [facility] Comment on above: Performed By: #### HUA DE OLIVEIRA, CP #### [address] [place] [address] Silhouette Artist: Osmany Chow MD Comprehensive Metabolic Pane [facility] 04-27-2019 Albumin [Mass/Vol] 4.6 g/dL 3.5 - 5.2 g/dL [place], [place] Albumin/Globulin [Mass ratio] 1.4 {ratio} [place], [place] ALP [Catalytic activity/Vol] 129 U/L High 35 - 104 U/L [place] ALT [Catalytic activity/Vol] 13 U/L 5 - 33 U/L [place] Anion gap [Moles/Vol] 20 mmol/L High 9 - 17 mmol/L [place] AST [Catalytic activity/Vol] 16 U/L <32 [place] Bilirubin Ql (U) 0.36 mg/dL 0.3 - 1.2 mg/dL [place] Bun/Cre Ratio 9 [place], [place] Calcium [Mass/Vol] 9.7 mg/dL 8.6 - 10. 4 mg/dL [place] Chloride [Moles/Vol] 96 mmol/L Low 98 - 107 mmol/L [place] CO2 [Moles/Vol] 23 mmol/L 20 - 31 mmol/L [place] Creatinine [Mass/Vol] 1.17 mg/dL High 0.5 - 0.9 mg/dL [place] GFR 57 mL/min Low >60 [place] GFR Non- 47 mL/min Low >60 [place] Glucose [Mass/Vol] 185 mg/dL High 70 - 99 mg/dL [place] Interpretation and review of laboratory results Abnormal [place] Potassium [Moles/Vol] 4.1 mmol/L 3.7 - 5.3 mmol/L [place] Protein [Mass/Vol] 7.8 g/dL 6.4 - 8.3 g/dL [place] Sodium [Moles/Vol] 139 mmol/L 135 - 144 mmol/L [place] Urea nitrogen [Mass/Vol] 11 mg/dL 8 - 23 mg/dL [place] Metabolic Panelon 04-27-2019 GFR/1.73 sq M predicted among non-blacks MDRD (S/P/Bld) [Vol rate/Area] [place], [place] Comment on above: Stage 1: Some [...] body mass. Additional eGFR calculator available at: http://www.Playground Sessions/multiple_crcl_2012.htm Troponinon 04-27-2019 Troponin I.cardiac [Mass/Vol] ng/mL Normal <0.[address] [facility] Comment on above: Result Comment: Trop onin T results cannot be compared to Troponin-I results. Performed By: #### T HUA CHAPA, CP #### [facility] [address] [place] [address] Silhouette Artist: Osmany Chow MD Troponin I.cardiac [Mass/Vol] Normal [facility] Comment on above: Result Comment: Refe [...] T HUA CHAPA, CP #### [facility] [address] [place] [address] Silhouette Artist: Osmany Chow MD Troponin I.cardiac [Mass/Vol] NOT REPORTED Normal 0-[address] [facility] Comment on above: Performed By: #### T HUA CHAPA, CP #### [facility] [address] [place] [address] Silhouette Artist: Osmany Chow MD Troponin I.cardiac [Mass/Vol] [facility], [place] Comment on above: Reference Range: <0.03 Within [...] diagnosis. Troponin T.cardiac [Mass/Vol] ug/L <0.03 ng/mL [place], [place] Comment on above: Troponin T results c annot be compared to Troponin-I results. Troponin, High Sensitivity NOT REPORTED 0 - 14 ng/L [place] Vital Signs Date Time Vital Sign Value Performing Clinician Facility 08-05-2024 14:31-0500 Diastolic blood pressure 70 mm[Hg] [facility] 08-05-2024 14:31-0500 Heart rate 79 /min [facility] 08-05-2024 14:31-0500 SaO2% (BldA) [Mass fraction] 97 % [facility] 08-05-2024 14:31-0500 Systolic blood pressure 126 mm[Hg] [facility] 07-15-2024 14:24-0500 Body height 168.9 cm Elly Galan MD Work Phone: [facility] 07-15-2024 14:24-0500 Body mass index (BMI) [Ratio] 28.94 kg/m2 Elly Galan MD Work Phone: [facility] 07-15-2024 14:24-0500 Body weight 82.56 kg Elly Galan MD Work Phone: [facility] 07-15-2024 14:24-0500 Diastolic blood pressure 84 mm[Hg] Elly Galan MD Work Phone: [facility] 07-15-2024 14:24-0500 Systolic blood pressure 127 mm[Hg] Elly Galan MD Work Phone: [facility] 07-08-2024 15:39-0500 Diastolic blood pressure 70 mm[Hg] [facility] 07-08-2024 15:39-0500 Heart rate 90 /min [facility] 07-08-2024 15:39-0500 SaO2% (BldA) [Mass fraction] 96 % [facility] 07-08-2024 15:39-0500 Systolic blood pressure 110 mm[Hg] [facility] 06-01-2024 13:37-0500 Diastolic blood pressure 60 mm[Hg] [facility] 06-01-2024 13:37-0500 Heart rate 79 /min [facility] 06-01-2024 13:37-0500 SaO2% (BldA) [Mass fraction] 97 % [facility] 06-01-2024 13:37-0500 Systolic blood pressure 102 mm[Hg] [facility] 05-14-2024 15:56-0400 Body height 168.9 cm Vinh Ray CAMPAIGN MANAGEMENT SPECIALIST Work Phone: [facility] 05-14-2024 15:56-0400 Body mass index (BMI) [Ratio] 28.94 kg/m2 Vinh Ray CAMPAIGN MANAGEMENT SPECIALIST Work Phone: [facility] 05-14-2024 15:56-0400 Body temperature 98.8 [degF] Vinh Ray CAMPAIGN MANAGEMENT SPECIALIST Work Phone: [facility] 05-14-2024 15:56-0400 Body weight 82.56 kg Vinh Ray CAMPAIGN MANAGEMENT SPECIALIST Work Phone: [facility] 05-14-2024 15:56-0400 Diastolic blood pressure 84 mm[Hg] Vinh Ray CAMPAIGN MANAGEMENT SPECIALIST Work Phone: [facility] 05-14-2024 15:56-0400 Heart rate 87 /min Vinh Ray CAMPAIGN MANAGEMENT SPECIALIST Work Phone: [facility] 05-14-2024 15:56-0400 SaO2% (BldA) [Mass fraction] 97 % Vinh Ray CAMPAIGN MANAGEMENT SPECIALIST Work Phone: [facility] 05-14-2024 15:56-0400 Systolic blood pressure 112 mm[Hg] Vinh Ray CAMPAIGN MANAGEMENT SPECIALIST Work Phone: [facility] 05-13-2024 14:01-0400 Diastolic blood pressure 64 mm[Hg] [facility] 05-13-2024 14:01-0400 Heart rate 97 /min [facility] 05-13-2024 14:01-0400 SaO2% (BldA) [Mass fraction] 97 % [facility] 05-13-2024 14:01-0400 Systolic blood pressure 102 mm[Hg] [facility] 04-14-2024 15:27-0400 Diastolic blood pressure 68 mm[Hg] [facility] 04-14-2024 15:27-0400 Heart rate 91 /min [facility] 04-14-2024 15:27-0400 SaO2% (BldA) [Mass fraction] 97 % [facility] 04-14-2024 15:27-0400 Systolic blood pressure 118 mm[Hg] [facility] 03-16-2024 13:29-0400 Diastolic blood pressure 70 mm[Hg] [facility] 03-16-2024 13:29-0400 Heart rate 72 /min [facility] 03-16-2024 13:29-0400 SaO2% (BldA) [Mass fraction] 97 % [facility] 03-16-2024 13:29-0400 Systolic blood pressure 122 mm[Hg] [facility] 02-26-2024 14:41-0400 Diastolic blood pressure 70 mm[Hg] [facility] 02-26-2024 14:41-0400 Heart rate 71 /min [facility] 02-26-2024 14:41-0400 SaO2% (BldA) [Mass fraction] 96 % [facility] 02-26-2024 14:41-0400 Systolic blood pressure 110 mm[Hg] [facility] 02-05-2024 14:09-0400 Diastolic blood pressure 80 mm[Hg] [facility] 02-05-2024 14:09-0400 Heart rate 80 /min [facility] 02-05-2024 14:09-0400 SaO2% (BldA) [Mass fraction] 97 % [facility] 02-05-2024 14:09-0400 Systolic blood pressure 130 mm[Hg] [facility] 01-07-2024 15:12-0400 Body height 165.1 cm [facility] 01-07-2024 15:12-0400 Diastolic blood pressure 62 mm[Hg] [facility] 01-07-2024 15:12-0400 Systolic blood pressure 108 mm[Hg] [facility] 12-11-2023 14:02-0400 Diastolic blood pressure 80 mm[Hg] [facility] 12-11-2023 14:02-0400 Heart rate 75 /min [facility] 12-11-2023 14:02-0400 SaO2% (BldA) [Mass fraction] 96 % [facility] 12-11-2023 14:02-0400 Systolic blood pressure 120 mm[Hg] [facility] 11-18-2023 15:28-0400 Diastolic blood pressure 80 mm[Hg] [facility] 11-18-2023 15:28-0400 Heart rate 83 /min [facility] 11-18-2023 15:28-0400 SaO2% (BldA) [Mass fraction] 98 % [facility] 11-18-2023 15:28-0400 Systolic blood pressure 110 mm[Hg] [facility] 05-27-2023 13:45-0400 Body height 165.1 cm Vazquez Villar Other [employer] [facility] [employer] Other 05-27-2023 13:45-0400 Diastolic blood pressure 80 mm[Hg] Vazquez Villar Other [employer] Other 05-27-2023 13:45-0400 SaO2% (BldA) [Mass fraction] 97 % Vazquez Villar Other [employer] Other 05-27-2023 13:45-0400 Systolic blood pressure 118 mm[Hg] Vazquez Villar Other [employer] Other 04-29-2023 13:30-0400 Body height 165.1 cm Vazquez Villar Other [employer] Other 04-29-2023 13:30-0400 Diastolic blood pressure 72 mm[Hg] Vazquez Villar Other [employer] Other 04-29-2023 13:30-0400 Systolic blood pressure 120 mm[Hg] Vazquez Jian Other [employer] Other 04-04-2023 14:30-0400 Diastolic blood pressure 70 mm[Hg] Vazquez Jian Other [employer] Other 04-04-2023 14:30-0400 SaO2% (BldA) [Mass fraction] 98 % Vazquez Jian Other [employer] Other 04-04-2023 14:30-0400 Systolic blood pressure 120 mm[Hg] Vazquez Jian Other [employer] Other 03-05-2023 11:00-0400 Body weight 75.84 kg Vazquez Jian Other [employer] Other 11-20-2022 12:15-0400 Body weight 73.94 kg Vazquez Jian Other [employer] Other 11-20-2022 12:15-0400 Diastolic blood pressure 84 mm[Hg] Vazquez Jian Other [employer] Other 11-20-2022 12:15-0400 SaO2% (BldA) [Mass fraction] 97 % Vazquez Jian Other [employer] Other 11-20-2022 12:15-0400 Systolic blood pressure 126 mm[Hg] Vazquez Jian Other [employer] Other 11-05-2022 15:15-0400 Body weight 77.02 kg Vazquez Jian Other [employer] Other 11-05-2022 15:15-0400 Diastolic blood pressure 60 mm[Hg] Vazquez Villar Other [employer] Other 11-05-2022 15:15-0400 SaO2% (BldA) [Mass fraction] 98 % Vazquez Villar Other [employer] Other 11-05-2022 15:15-0400 Systolic blood pressure 100 mm[Hg] Vazquez Villar Other [employer] Other 10-17-2022 15:30-0400 Body weight 77.52 kg Vazquez Villar Other [employer] Other 10-17-2022 15:30-0400 Diastolic blood pressure 70 mm[Hg] Vazquez Villar Other [employer] Other 10-17-2022 15:30-0400 SaO2% (BldA) [Mass fraction] 98 % Vazquez Villar Other [employer] Other 10-17-2022 15:30-0400 Systolic blood pressure 118 mm[Hg] Vazquez Villar Other [employer] Other 09-26-2022 13:30-0500 Body weight 76.75 kg Vazquez Villar Other [employer] Other 09-26-2022 13:30-0500 Diastolic blood pressure 88 mm[Hg] Vazquez Jian Other [employer] Other 09-26-2022 13:30-0500 SaO2% (BldA) [Mass fraction] 95 % Vazquez Villar Other [employer] Other 09-26-2022 13:30-0500 Systolic blood pressure 142 mm[Hg] Vazquez Villar Other [employer] Other 08-29-2022 12:45-0500 Body weight 76.66 kg Sheela Woodall Other [employer] Other 08-29-2022 12:45-0500 Diastolic blood pressure 60 mm[Hg] Sheela Woodall Other [employer] Other 08-29-2022 12:45-0500 SaO2% (BldA) [Mass fraction] 96 % Sheela Woodall Other [employer] Other 08-29-2022 12:45-0500 Systolic blood pressure 110 mm[Hg] Sheela Woodall Other [employer] Other 08-06-2022 14:00-0500 Body weight 76.2 kg Vazquez Villar Other [employer] Other 08-06-2022 14:00-0500 Diastolic blood pressure 80 mm[Hg] Vazquez Jian Other [employer] Other 08-06-2022 14:00-0500 SaO2% (BldA) [Mass fraction] 99 % Vazquez Villar Other [employer] Other 08-06-2022 14:00-0500 Systolic blood pressure 126 mm[Hg] Vazquez Jian Other [employer] Other 07-04-2022 16:15-0500 Diastolic blood pressure 80 mm[Hg] Vazquez Jian Other [employer] Other 07-04-2022 16:15-0500 SaO2% (BldA) [Mass fraction] 97 % Vazquez Jian Other [employer] Other 07-04-2022 16:15-0500 Systolic blood pressure 120 mm[Hg] Vazquez Jian Other [employer] Other 03-20-2022 11:30-0400 Body weight 79.38 kg Vazquezkeanu Villar Other [employer] Other 03-20-2022 11:30-0400 Diastolic blood pressure 76 mm[Hg] Vazquez Jian Other [employer] Other 03-20-2022 11:30-0400 SaO2% (BldA) [Mass fraction] 99 % Vazquez Villar Other [employer] Other 03-20-2022 11:30-0400 Systolic blood pressure 120 mm[Hg] Vazquez Jian Other [employer] Other 02-05-2022 15:15-0400 Diastolic blood pressure 80 mm[Hg] Vzaquez Jian Other [employer] Other 02-05-2022 15:15-0400 SaO2% (BldA) [Mass fraction] 99 % Vazquez Jian Other [employer] Other 02-05-2022 15:15-0400 Systolic blood pressure 138 mm[Hg] Vazquez Jian Other [employer] Other 01-19-2022 11:45-0400 Body weight 77.57 kg Vazquezkeanu Villar Other [employer] Other 01-19-2022 11:45-0400 Diastolic blood pressure 70 mm[Hg] Vazquez Jian Other [employer] Other 01-19-2022 11:45-0400 SaO2% (BldA) [Mass fraction] 99 % Vazquez Jian Other [employer] Other 01-19-2022 11:45-0400 Systolic blood pressure 118 mm[Hg] Vazquez Jian Other [employer] Other 12-04-2021 15:30-0400 Body weight 77.66 kg Vazquez Jian Other [employer] Other 12-04-2021 15:30-0400 Diastolic blood pressure 76 mm[Hg] Vazquez Jian Other [employer] Other 12-04-2021 15:30-0400 SaO2% (BldA) [Mass fraction] 96 % Vazquez Villar Other [employer] Other 12-04-2021 15:30-0400 Systolic blood pressure 118 mm[Hg] Vazquez Jian Other [employer] Other 11-06-2021 12:30-0400 Body weight 77.02 kg Vazquez Jian Other [employer] Other 11-06-2021 12:30-0400 Diastolic blood pressure 60 mm[Hg] Vazquez Jian Other [employer] Other 11-06-2021 12:30-0400 SaO2% (BldA) [Mass fraction] 98 % Vazquez Jian Other [employer] Other 11-06-2021 12:30-0400 Systolic blood pressure 110 mm[Hg] Vazquez Jian Other [employer] Other 10-19-2021 16:45-0400 Body weight 76.93 kg Vazquez Jian Other [employer] Other 10-19-2021 16:45-0400 Diastolic blood pressure 80 mm[Hg] Vazquez Jian Other [employer] Other 10-19-2021 16:45-0400 SaO2% (BldA) [Mass fraction] 98 % Vazquez Jian Other [employer] Other 10-19-2021 16:45-0400 Systolic blood pressure 140 mm[Hg] Vazquez Jian Other [employer] Other 10-02-2021 14:30-0500 Body weight 77.47 kg Vazquezkeanu Villar Other [employer] Other 10-02-2021 14:30-0500 Diastolic blood pressure 82 mm[Hg] Vazquez Jian Other [employer] Other 10-02-2021 14:30-0500 SaO2% (BldA) [Mass fraction] 99 % Vazquez Jian Other [employer] Other 10-02-2021 14:30-0500 Systolic blood pressure 110 mm[Hg] Vazquez Jian Other [employer] Other 04-27-2019 17:30-0400 BP Diastolic 67 mm[Hg] Frances Little [facility] , [place] 04-27-2019 17:30-0400 BP Systolic 125 mm[Hg] Frances Little [facility] , [place] 04-27-2019 17:30-0400 Pulse (Heart Rate) 66 /min Frances Little [facility], [place] 04-27-2019 14:47-0400 BMI (Body Mass Index) 25.02 kg/m2 Frances Little [facility], [place] 04-27-2019 14:47-0400 Body Temperature 97.5 [degF] Frances Little [facility], [place] 04-27-2019 14:47-0400 Body weight 70.31 kg Frances Little [facility] , [place] 04-27-2019 14:47-0400 Pulse Oximetry 99 % Frances Little [facility] , [place] 04-27-2019 14:47-0400 Respiratory Rate 16 /min Frances Little [facility], [place] Encounters Encounter Date Encounter Type Care Provider Facility Start: 08-05-2024 End: 08-05-2024 ambulatory [facility] Work Phone: Start: 08-05-2024 End: 08-05-2024 Patient encounter procedure [facility] Work Phone: Start: 07-15-2024 End: 07-15-2024 Office outpatient visit 15 minutes Elly Galan MD Work Phone: [facility] Comment on above: 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) Start: 07-15-2024 End: 07-15-2024 ambulatory ELLY GALAN Not Available Start: 07-08-2024 End: 07-08-2024 Patient encounter procedure [facility] Work Phone: Start: 06-19-2024 End: 06-19-2024 Patient encounter procedure [facility] Work Phone: Start: 06-11-2024 Non-patient / Non-visit [facility] Work Phone: Start: 06-11-2024 End: 06-11-2024 ambulatory [facility] Work Phone: Start: 06-11-2024 End: 06-11-2024 Patient encounter procedure [facility] Work Phone: Start: 06-01-2024 End: 06-01-2024 ambulatory [facility] Work Phone: Start: 06-01-2024 End: 06-01-2024 Patient encounter procedure [facility] Work Phone: Start: 05-21-2024 End: 05-21-2024 ambulatory [facility] Work Phone: Start: 05-21-2024 End: 05-21-2024 Patient encounter procedure [facility] Work Phone: Start: 05-21-2024 Non-patient / Non-visit [facility] Work Phone: Start: 05-14-2024 End: 05-14-2024 Office outpatient visit 25 minutes Vinh Ray CAMPAIGN MANAGEMENT SPECIALIST Work Phone: [facility] Comment on above: Acute non-recurrent pansinusitis (Primary Dx) Start: 05-14-2024 End: 05-14-2024 ambulatory VINH RAY Not Available Start: 05-13-2024 End: 05-13-2024 ambulatory [facility] Work Phone: Start: 05-13-2024 End: 05-13-2024 Patient encounter procedure [facility] Work Phone: Start: 04-14-2024 End: 04-14-2024 ambulatory [facility] Work Phone: Start: 04-14-2024 End: 04-14-2024 Patient encounter procedure [facility] Work Phone: Start: 03-26-2024 Non-patient / Non-visit [facility] Work Phone: Start: 03-26-2024 End: 03-26-2024 ambulatory [facility] Work Phone: Start: 03-26-2024 End: 03-26-2024 Patient encounter procedure [facility] Work Phone: Start: 03-16-2024 End: 03-16-2024 ambulatory [facility] Work Phone: Start: 03-16-2024 End: 03-16-2024 Patient encounter procedure [facility] Work Phone: Start: 03-12-2024 End: 03-12-2024 ambulatory VINH RAY Not Available Start: 03-05-2024 Non-patient / Non-visit [facility] Work Phone: Start: 03-05-2024 End: 03-05-2024 ambulatory [facility] Work Phone: Start: 03-05-2024 End: 03-05-2024 Patient encounter procedure [facility] Work Phone: Start: 02-26-2024 End: 02-26-2024 ambulatory [facility] Work Phone: Start: 02-26-2024 End: 02-26-2024 Patient encounter procedure [facility] Work Phone: Start: 02-13-2024 Non-patient / Non-visit [facility] Work Phone: Start: 02-13-2024 End: 02-13-2024 ambulatory [facility] Work Phone: Start: 02-13-2024 End: 02-13-2024 Patient encounter procedure [facility] Work Phone: Start: 02-05-2024 End: 02-05-2024 ambulatory [facility] Work Phone: Start: 02-05-2024 End: 02-05-2024 Patient encounter procedure [facility] Work Phone: Start: 01-07-2024 End: 01-07-2024 ambulatory [facility] Work Phone: Start: 01-07-2024 End: 01-07-2024 Patient encounter procedure [facility] Work Phone: Start: 12-24-2023 End: 12-24-2023 ambulatory [facility] Work Phone: Start: 12-24-2023 End: 12-24-2023 Patient encounter procedure [facility] Work Phone: Start: 12-11-2023 End: 12-11-2023 Patient encounter procedure [facility] Work Phone: Start: 12-03-2023 End: 12-03-2023 ambulatory [facility] Work Phone: Start: 12-03-2023 End: 12-03-2023 Patient encounter procedure [facility] Work Phone: Start: 12-03-2023 Non-patient / Non-visit [facility] Work Phone: Start: 11-18-2023 End: 11-18-2023 ambulatory [facility] Work Phone: Start: 11-18-2023 End: 11-18-2023 Patient encounter procedure [facility] Work Phone: Start: 09-20-2023 End: 09-20-2023 ambulatory MERCY WILSON Not Available Start: 05-27-2023 End: 05-27-2023 ambulatory Vazquez Jian Other [employer] Other Start: 05-27-2023 Office outpatient vi sit 15 minutes Vazquez Jina [facility] Start: 05-09-2023 (PROC) PROCEDURE Vazquezkeanu Ventura S [facility] [place] Start: 05-09-2023 End: 05-09-2023 ambulatory Vazquez Jian Other [employer] Other Start: 04-29-2023 End: 04-29-2023 ambulatory Vazquez Jian Other [employer] Other Start: 04-29-2023 Office outpatient vi sit 25 minutes Vazquez Jian [facility] Start: 04-04-2023 End: 04-04-2023 ambulatory Vazquez Jian Other [employer] Other Start: 04-04-2023 Office outpatient vi sit 15 minutes Vazquez Jian [facility] Start: 03-14-2023 (PROC) PROCEDURE Vazquezkeanu Ventura S [facility] Start: 03-14-2023 End: 03-14-2023 ambulatory Vazquez Jian Other [employer] Other Start: 03-05-2023 End: 03-05-2023 ambulatory Vazquez Jian Other [employer] Other Start: 03-05-2023 Office outpatient vi sit 25 minutes Vazquez Jian [facility] Start: 02-26-2023 (PROC) PROCEDURE Vazquezkeanu Ventura S [facility] [place] Start: 02-26-2023 End: 02-26-2023 ambulatory Vazquez Jian Other [employer] Other Start: 11-20-2022 End: 11-20-2022 ambulatory Vazquez Jian Other [employer] Other Start: 11-20-2022 Office outpatient vi sit 15 minutes Vazquez Jian [facility] Start: 11-05-2022 End: 11-05-2022 ambulatory Vazquez Jian Other [employer] Other Start: 11-05-2022 Office outpatient vi sit 25 minutes Vazquez Jian [facility] Start: 10-25-2022 (PROC) PROCEDURE Vazquezkeanu Villar [facility] Start: 10-25-2022 End: 10-25-2022 ambulatory Vazquez Jian Other [employer] Other Start: 10-17-2022 End: 10-17-2022 ambulatory Vazquez Jian Other [employer] Other Start: 10-17-2022 Office outpatient vi sit 25 minutes Vazquez Jian [facility] Start: 10-15-2022 End: 10-15-2022 ambulatory Rugen M Emigdio Facility:[facility] Start: 09-26-2022 End: 09-26-2022 ambulatory Vazquez Jian Other [employer] Other Start: 09-26-2022 Office outpatient vi sit 25 minutes Vazquez Jian [facility] Start: 08-29-2022 End: 08-29-2022 ambulatory Sheela Woodall Other [employer] Other Start: 08-29-2022 Office outpatient vi sit 15 minutes Sheela Woodall [facility] Start: 08-29-2022 Telephone encounter Vazquez Jian [facility] Start: 08-14-2022 (PROC) PROCEDURE Vazquezkeanu Villar [facility] Start: 08-14-2022 End: 08-14-2022 ambulatory Vazquezkeanu Villar Other [employer] Other Start: 08-06-2022 End: 08-06-2022 ambulatory Vazquez Jian Other [employer] Other Start: 08-06-2022 Office outpatient vi sit 25 minutes Vazquez Jian [facility] Start: 08-03-2022 End: 08-04-[address] MERCED BEAL Facility:[facility] Start: 07-19-2022 (PROC) PROCEDURE Vazquez Villar [facility] Start: 07-19-2022 End: 07-19-2022 ambulatory Vazquez Jain Other [employer] Other Start: 07-12-2022 End: 07-13-[address] ELLY GALAN Facility:[facility] Start: 07-04-2022 End: 07-04-2022 ambulatory Vazquez Jian Other [employer] Other Start: 07-04-2022 Office outpatient vi sit 25 minutes Vazquez Jian [facility] Start: 06-26-2022 (Procedure) Short Vazquez Villar [facility] Start: 06-26-2022 End: 06-26-2022 ambulatory Vazquez Jian Other [employer] Other Start: 03-20-2022 End: 03-20-2022 ambulatory Vazquez Jian Other [employer] Other Start: 03-20-2022 Office outpatient vi sit 25 minutes Vazquez Jian [facility] Start: 02-05-2022 End: 02-05-2022 ambulatory Vazquez Jian Other [employer] Other Start: 02-05-2022 Office outpatient vi sit 15 minutes Vazquez Jian [facility] Start: 01-19-2022 End: 01-19-2022 ambulatory Vazquez Jian Other [employer] Other Start: 01-19-2022 Office outpatient vi sit 25 minutes Vazquez Jian [facility] Start: 01-01-2022 End: 01-01-2022 ambulatory Vazquez Edwige Villar Facility:[facility] Start: 01-01-2022 End: 01-01-2022 Patient encounter procedure MD Merced Beal Work Phone: [facility] Start: 12-04-2021 End: 12-04-2021 ambulatory Vazquezkeanu Villar Other [employer] Other Start: 12-04-2021 Office outpatient vi sit 25 minutes Vazquez Jian [facility] Start: 11-16-2021 (Procedure) Short Vazquez Villar [facility] Start: 11-16-2021 End: 11-16-2021 ambulatory Vazquez Jian Other [employer] Other Start: 11-06-2021 End: 11-06-2021 ambulatory Vazquez Jian Other [employer] Other Start: 11-06-2021 Office outpatient vi sit 25 minutes Vazquez Jian [facility] Start: 10-26-2021 (Procedure) Short Vazquez Villar [facility] Start: 10-26-2021 End: 10-26-2021 ambulatory Vazquez Jian Other [employer] Other Start: 10-19-2021 End: 10-19-2021 ambulatory Vazquez Jian Other [employer] Other Start: 10-19-2021 Office outpatient vi sit 25 minutes Vazquez Jian [facility] Start: 10-12-2021 (Procedure) Short Vazquez Villar [facility] Start: 10-12-2021 End: 10-12-2021 ambulatory Vazquez Villar Other [employer] Other Start: 10-02-2021 End: 10-02-2021 ambulatory Vazquez Villar Other [employer] Other Start: 10-02-2021 Office outpatient vi sit 25 minutes Vazquez Villar [facility] Start: 04-27-2019 Emergency department patient visit MERCED BEAL [facility] Start: 04-27-2019 End: 04-27-2019 Emergency department patient visit Frances Hurt Work Phone: [facility] ED Comment on above: Dizziness (Primary D x); Paresthesia Start: 02-28-2017 End: 03-01-2017 Ambulatory Patrick Coley Facility::[id number] Start: 04-04-2016 End: 04-05-2016 Ambulatory Jeffry Volborg Facility:[facility] Procedures Date Procedure Procedure Detail Performing Clinician Start: 08-26-2023 Mammography Vinh bird NP Work Phone: Start: 01-01-2022 Radiologic examinati on of knee MD Merced Beal Work Phone: Start: 04-27-2019 Ct head/brain w/o co ntrast material RUGEN EMIGDIO Start: 04-27-2019 ORTHOSTATIC BLOOD NC ESSURE AND PULSE RUGEN EMIGDIO Start: 04-27-2019 [...] 08-22-2028 Screening for malignant neoplasm of colon [facility] Start: 03-16-2025 End: 03-16-2025 Patient encounter procedure 03/16/2025 11:30 AM EDT Office Visit [facility] [address] [facility] [address] [place] [id number] Vihn Ray NP [address] [place] [address] [facility] Start: 03-12-2025 Medicare Annual Wellness (AWV) Medicare Annual Wellness (AWV) [facility] Start: 08-26-2024 Screening for malignant neoplasm of breast Mammogram [facility] Start: 03-29-2024 Influenza vaccination Influenza Vaccine (#1) [facility] Start: 12-23-2023 Pneumococcal Vaccine: 65+ Years (2 of 2 - PCV) Pneumococcal Vaccine: 65+ Years (2 of 2 - PCV) [facility] Start: 03-29-2019 Influenza vaccination Flu vaccine (#1) [place], [place] Start: 01-20-2018 Lipid screen Lipid screen [place] Start: 01-20-2015 Breast cancer screen Breast cancer screen [place], [place] Start: 2008 Colon cancer screen colonoscopy Colon cancer screen colonoscopy [place], [place] Start: 2008 Shingles Vaccine (1 of 2) Shingles Vaccine (1 of 2) [place] Start: 1988 Screening for malignant neoplasm of cervix [facility] Start: 12-23-1979 Cervical cancer screen Cervical cancer screen [place] Start: 12-23-1979 Screening for malignant neoplasm of cervix Pap Smear [facility] Start: 1977 DTaP/Tdap/Td vaccine (1 - Tdap) DTaP/Tdap/Td vaccine (1 - Tdap) [place], [place] Start: 1973 HIV screen HIV screen [place], [place] Start: 1958 Hepatitis C screen Hepatitis C screen [place], [place] Start: 1958 Screening for malignant neoplasm of colon [facility] EKG 12 Lead EKG 12 Lead ECG STAT 04/27/2019 2:47 PM EDT [place], [place] Immunizations Immunization Date Immunization Notes Care Provider [facility] 05-14-2024 Influenza, High-dose Seasonal, Quadrivalent, Preservative Free Elly Galan MD Work Phone: [facility] 05-29-2023 influenza, injectabl e, quadrivalent, preservative free Vinh Ray CAMPAIGN MANAGEMENT SPECIALIST Work Phone: [facility] Work Phone: 05-29-2023 influenza virus vaccine, unspecified formulation Vinh Ray CAMPAIGN MANAGEMENT SPECIALIST Work Phone: [facility] 08-03-2022 pneumococcal polysaccharide vaccine, 23 valent Vinh Ray CAMPAIGN MANAGEMENT SPECIALIST Work Phone: [facility] 06-09-2022 Moderna Bivalent Booster Vaccination Vinh Ray CAMPAIGN MANAGEMENT SPECIALIST Work Phone: [facility] 05-03-2022 Influenza, injectabl e, Madin Ilan Canine Kidney, preservative free, quadrivalent Vinh Ray CAMPAIGN MANAGEMENT SPECIALIST Work Phone: [facility] 06-19-2021 influenza, injectabl e, quadrivalent, preservative free Vinh Ray CAMPAIGN MANAGEMENT SPECIALIST Work Phone: [facility] 05-12-2020 influenza, injectabl e, quadrivalent, preservative free Vinh Ray CAMPAIGN MANAGEMENT SPECIALIST Work Phone: [facility] 07-06-2019 tetanus toxoid, redu ray diphtheria toxoid, and acellular pertussis vaccine, adsorbed Vazquez Jian Other [facility] 05-25-2019 influenza, injectabl e, madin ilan canine kidney, preservative free Vinh Wildrose CAMPAIGN MANAGEMENT SPECIALIST Work Phone: [facility] 04-28-2019 influenza, injectabl e, quadrivalent, preservative free Vinh Wildrose CAMPAIGN MANAGEMENT SPECIALIST Work Phone: [facility] 05-07-2017 seasonal influenza, intradermal, preservative free Vinh Wildrose CAMPAIGN MANAGEMENT SPECIALIST Work Phone: [facility] 05-09-2016 influenza virus vaccine, unspecified formulation [facility] 05-09-2016 influenza, injectabl e, quadrivalent, contains preservative Vinh Wildrose CAMPAIGN MANAGEMENT SPECIALIST Work Phone: [facility] 05-09-2016 influenza, injectable,quadrivalent , preservative free, pediatric Vazquez Villar Other [place] [employer] Other Payers Date Payer Category Payer Medicaid [place] [id number] 2022 Self-pay [id number] 2021 Medicare (Managed Care) [employer] LAST [id number] 2019 Private Health Insurance [id number] 2019 Private Health Insurance AETNA AETNA xxxxxxxxxx 2019-Present [phone] [address] [place] [address] xxxxxxxxxx [id number] 2017 Medicare [id number] 2017 Medicare MEDICARE MEDICAR E PART A AND B xxxxxxxxxxx 2017-Present [phone] [address] [address] [place] [address] xxxxxxxxxxx [id number] 1959 Medicaid [id number] 1959 Unknown [id number] 1958 Unknown [id number] 1958 Unknown [id number] 1958 Unknown [id number] 1958 Unknown [id number] [id number] 1958 Unknown [id number] [id number] 1958 Unknown [id number] [id number] 1958 Unknown [id number] 1259 Medicare [place] MediBlue Dual Adv [id number] Medicare [id number] Unknown [id number] Unknown [id number] Unknown [id number] Social History Date Type Detail Facility Start: 04-27-2019 End: 02-12-2023 Tobacco smoking status NHIS Never smoker [facility] Start: 04-27-2019 End: 05-14-2024 Alcohol intake No [facility] Sex Assigned At Not on file [place], [place] Start: 1960 Sex Assigned At Female [facility] Start: 02-12-2023 Tobacco use and exposure Smokeless tobacco non-user [facility] Start: 05-14-2024 End: 07-15-2024 Alcoholic beverage intake Lifetime non-drinker (finding) [facility] [...] (finding) [facility] Tobacco smoking stat us WIIS Unknown if ever smoked [facility] Work Phone: Start: 06-11-2024 End: 08-05-2024 Sex Female (finding) [facility] Clinical Notes 11-07-2015 to 07-15-2024 Elly Galan MD - 07/15/2024 2:30 PM Guilherme Ray NP - 05/14/2024 4:00 PM EDT Note Date & Type Note Facility 07-15-2024 History of Presen t illness Narrative Subjective Patient ID: ela Padilla is a 63 y.o. female who presents for Thyroid Cancer (1 year ultrasound [facility]) Thyroid US shows a [id number] LT TR4 nodule compared to [id number] one year ago. Family History Problem Relation Name Age of Onset Mental illness Mother Alzheimer's disease Mother Alzheimer's disease Father Scotty Hypertension Father Fajardo Mental illness Father Scotty Active Ambulatory Problems Diagnosis Date Noted Abnormal mammogram 02/12/2023 Bilateral leg paresthesia 02/12/2023 Fibromyalgia 02/12/2023 Bilateral edema of lower extremity 02/12/2023 Multinodular goiter (nontoxic) (CMS/HCC) 02/12/2023 Other idiopathic scoliosis, lumbar region 02/12/2023 Overweight 02/12/2023 Papillary microcarcinoma of thyroid (CMS/HCC) 02/12/2023 Primary insomnia 02/12/2023 Seasonal allergic rhinitis 02/12/2023 Slow transit constipation 02/12/2023 Spondylolisthesis at L2-L3 level 02/12/2023 Thyroid nodule (CMS/HCC) 02/12/2023 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 Sacroiliitis, not elsewhere classified (CMS/HCC) 02/12/2023 Resolved Ambulatory Problems Diagnosis Date Noted No Resolved Ambulatory Problems Past Medical History: Diagnosis Date Allergic Allergies Goiter (CMS/HCC) 2012 H/O CT scan 04/27/2019 H/O CT scan of brain History of blood clots History of medical problems Hx of papillary thyroid carcinoma 2016 Multinodular goiter (CMS/HCC) Past Surgical History: Procedure Laterality Date AFIRMA THYROID FNA ANALYSIS 10/14/2015 SECTION, LOW TRANSVERSE 1983 CHOLECYSTECTOMY 03/09/2016 FOOT FRACTURE SURGERY 04/02/2015 broken foot walking cast IR FINE NEEDLE ASPIRATION THYROID 2016 THYROIDECTOMY Right 11/08/2015 partial TUBAL LIGATION Bilateral Allergies Allergen Reactions Bactrim [Sulfamethoxazole-Trimethoprim] Swelling Lip swelling, difficulty swallowing Cyclobenzaprine Other Reaction(s): headaches Penicillin G Other Reaction(s): hives Sodium Hypochlorite Other Reaction(s): Unknown Current Outpatient Medications on File Prior to Visit Medication Sig Dispense Refill alpha tocopherol (Vitamin E) 400 units capsule 1 capsule 1 (one) time each day at the same time. Calcium Carb-Cholecalciferol (CALCIUM 500 +D PO) Take [...] mg tablet 400 mg in the morning. meloxicam (Mobic) 15 MG tablet TAKE 1/2 TO 1 (ONE-HALF TO ONE) TABLET BY MOUTH ONCE DAILY plecanatide (Trulance) tablet tablet Take 1 tablet (3 mg) by mouth Daily 90 tablet 3 tiZANidine (Zanaflex) 4 MG tablet TAKE 1/2-1 TABLET BY MOUTH TWICE DAILY NEEDED Turmeric (QC Tumeric Complex) 500 MG capsule Take 2 capsules by mouth in the morning. No current facility-administered medications on file prior to visit. Objective Last Recorded Vitals Vitals: 07/15/24 1424 BP: 127/84 ENT Physical Exam Constitutional Appearance: patient appears well-developed, well-nourished and well-groomed, Communication/Voice: communication appropriate for developmental age; vocal quality normal; Assessment/Plan Diagnoses and all orders for this visit: Papillary microcarcinoma of thyroid (CMS/HCC) There may be slight growth of a nodule on the RT. I will repeat US in 6 mo rather than one year documented in this encounter [facility] 05-14-2024 History of Presen t illness Narrative [...] follow-ups on file. documented in this encounter [facility] 05-13-2024 Evaluation note Diagnosis Onset Date Resolution Lumbar radiculopathy acute Octo aubree 2023 1:51pm Lumbosacral spondylosis acute O ctober 2023 1:51pm Other chronic pain acute Aprobe r 2023 1:51pm Sacroiliitis acute April 1:51pm Lumbar radiculopathy acute 2023 1:25pm Lumbosacral spondylosis acute N ovember 2023 1:25pm Other chronic pain acute Novemb er 2023 1:25pm Sacroiliitis acute May 1:25pm Chronic pain acute May 11:53am Lumbosacral spondylosis acute N ovember 2023 11:53am Sacroiliitis acute May 11:53am Chronic pain acute June 3:34pm Lumbar radiculopathy acute 2023 3:34pm Sacroiliitis acute June 3:34pm Chronic pain acute August 05, 2024 2:23pm Lumbar radiculopathy acute Peng 2024 2:23pm Sacroiliitis acute August 05, 2024 2:23pm [facility] Work Phone: 1(107) 317-144408-19-2024 Evaluation note* Diagnosis Onset Date Resolution Status Admit Date Chronic pain acute March 16, 2024 1:20pm Lumbar radiculopathy acute Augu 2023 1:20pm Lumbosacral spondylosis acute A ugust 2023 1:20pm Sacroiliitis acute March 16, 2024 1:20pm Chronic pain acute April 142023 3:17pm Lumbar radiculopathy acute Mar emb2023 3:17pm Lumbosacral spondylosis acute S eptember 2023 3:17pm Sacroiliitis acute April 142023 3:17pm Lumbar radiculopathy acute Octo 2023 1:51pm Lumbosacral spondylosis acute O ctober 2023 1:51pm Other chronic pain acute Aprobe r 2023 1:51pm Sacroiliitis acute April 1:51pm Lumbar radiculopathy acute 2023 1:25pm Lumbosacral spondylosis acute N ovember 2023 1:25pm Other chronic pain acute Novemb er 2023 1:25pm Sacroiliitis acute May 1:25pm [facility] Work Phone: 1(983) 926-459710-30-2023 Evaluation note* Encounter Date Diagnosis Assessment Notes [...] (ICD-10 - G89.29) Follow up as needed. [facility] Other 10-02-2023 Evaluation note* Encounter Date Diagnosis [...] - G89.29) Follow up in 4 weeks. [facility] Other 09-07-2023 Evaluation note* Encounter Date Diagnosis [...] joint injections in the future if needed [facility] Other 08-08-2023 Evaluation note* Encounter Date Diagnosis [...] (ICD-10 - G89.29) Follow up after procedure [facility] Other 04-25-2023 Evaluation note* Encounter Date Diagnosis [...] call the office if her symptoms worsen. [facility] Other 04-10-2023 Evaluation note* Encounter Date Diagnosis [...] (ICD-10 - G89.29) Folllow up after imaging [facility] Other 03-22-2023 Evaluation note* Encounter Date Diagnosis [...] (ICD-10 - G89.29) Folllow up after imaging [facility] Other 03-01-2023 Evaluation note* Encounter Date Diagnosis [...] (ICD-10 - G89.29) Folllow up after imaging [facility] Other 02-01-2023 Evaluation note* Encounter Date Diagnosis [...] - G89.29) Follow up in 4 weeks. [facility] Other 02-01-2023 Evaluation note* Encounter Date Diagnosis Assessment Notes Treatment Notes Treatment Clinical Notes Aug, Lumbosacral spondylosis (ICD-10 - M47.817) [facility] Other 01-09-2023 Evaluation note* Encounter Date Diagnosis [...] - G89.29) Continue with current treatment plan [facility] Other 12-07-2022 Evaluation note* Encounter Date Diagnosis [...] - G89.29) Continue with current treatment plan [facility] Other 08-23-2022 Evaluation note* Encounter Date Diagnosis [...] proceeding with gel injections under ultrasound guidance [facility] Other 07-11-2022 Evaluation note* Encounter Date Diagnosis [...] - G89.29) Follow up in 4 weeks [facility] Other 06-24-2022 Evaluation note* Encounter Date Diagnosis [...] current treatment plan. Follow up after procedure. [facility] Other 05-09-2022 Evaluation note* Encounter Date Diagnosis [...] pain November, Chronic pain (ICD-10 - G89.29) [facility] Other 04-11-2022 Evaluation note* Encounter Date Diagnosis [...] (ICD-10 - G89.29) Continue with surgical consult [facility] Other 03-24-2022 Evaluation note* Encounter Date Diagnosis [...] - G89.29) Continue with current treatment plan [facility] Other 03-07-2022 Evaluation note* Encounter Date Diagnosis [...] - G89.29) Continue with current treatment plan [facility] Other 04-11-2016 History general Narrative - Reported* [...] Surgical History Broken foot Walking cast 04/02/20 Surgical History C SECTION 1982 Surgical History ENDOMETRIOSIS Surgical History thyroid FNA 10/14/2015 Surgical History R filippo thyroidectomy 11/08/2015 Surgical History cholecystectomy 03/09/2016 Hospitalization History SEE ABOVE [facility] [facility] Other Evaluation noteNo assessment information available [facility] Work Phone: Evaluation noteNo InformationNort [employer] Other Evaluation note* Diagnosis Onset Date Resolution Status Chronic pain acute Lumbar radiculopathy acute Lumbosacral spondylosis acny e [facility] Work Phone: Evaluation note* Diagnosis Onset Date Resolution Status Chronic pain acute Lumbar radiculopathy acute Lumbosacral spondylosis acut e Chronic pain acute Lumbar radiculopathy acute Lumbosacral spondylosis acut e Sacroiliitis acute [facility] Work Phone: Evaluation note* Diagnosis Onset Date Resolution Status Lumbosacral spondylosis acut e Other chronic pain acute Sacroiliitis acute [facility] Work Phone: Evaluation note* Diagnosis Onset Date Resolution Status Lumbosacral spondylosis acut e Other chronic pain acute Sacroiliitis acute Lumbosacral spondylosis acut e Other chronic pain acute Sacroiliitis acute [facility] Work Phone: Evaluation note* Diagnosis Onset Date Resolution Status Lumbosacral spondylosis acut e Other chronic pain acute Sacroiliitis acute Lumbosacral spondylosis acut e Other chronic pain acute Sacroiliitis acute Chronic pain acute Lumbar radiculopathy acute Lumbosacral spondylosis acut e Sacroiliitis acute [facility] Work Phone: Evaluation note* Diagnosis Onset Date Resolution Status Lumbosacral spondylosis acut e Other chronic pain acute Sacroiliitis acute Lumbosacral spondylosis acut e Other chronic pain acute Sacroiliitis acute Chronic pain acute Lumbar radiculopathy acute Lumbosacral spondylosis acut e Sacroiliitis acute Chronic pain acute Lumbar radiculopathy acute Lumbosacral spondylosis acut e Sacroiliitis acute [facility] Work Phone: Evaluation note* Diagnosis Onset Date Resolution Status Lumbosacral spondylosis acut e Other chronic pain acute Sacroiliitis acute Chronic pain acute Lumbar radiculopathy acute Lumbosacral spondylosis acut e Sacroiliitis acute Chronic pain acute Lumbar radiculopathy acute Lumbosacral spondylosis acut e Sacroiliitis acute Chronic pain acute Lumbar radiculopathy acute Lumbosacral spondylosis acut e Sacroiliitis acute [facility] Work Phone: Evaluation note* Diagnosis Onset Date Resolution Status Chronic pain acute Lumbar radiculopathy acute Lumbosacral spondylosis acut e Sacroiliitis acute Chronic pain acute Lumbar radiculopathy acute Lumbosacral spondylosis acut e Sacroiliitis acute Chronic pain acute Lumbar radiculopathy acute Lumbosacral spondylosis acut e Sacroiliitis acute Lumbar radiculopathy acute Lumbosacral spondylosis acut e Other chronic pain acute Sacroiliitis acute [facility] Work Phone: Evaluation note* Diagnosis Acute non-recurrent pansinusitis- Primary [facility] Diagnosis Onset Date Resolution Status Chronic pain acute Lumbar radiculopathy acute Lumbosacral spondylosis acut e Sacroiliitis acute Chronic pain acute Lumbar radiculopathy acute Lumbosacral spondylosis acut e Sacroiliitis acute Lumbar radiculopathy acute Lumbosacral spondylosis acut e Other chronic pain acute Sacroiliitis acute Lumbar radiculopathy acute Lumbosacral spondylosis acut e Other chronic pain acute Sacroiliitis acute [facility] Work Phone: Evaluation note* Diagnosis Papillary microcarcinoma of thyroid (CMS/HCC)- Primary [facility] - Reported* Type Description Date Medical History THYROID CANCER Surgical History THYROID 2016 Surgical History GALLBLADDER Surgical History C SECTION 1983 Surgical History ENDOMETRIOSIS Hospitalization History SEE ABOVE [facility] Other Summary Purpose Family History Relationship Condition Age at Onset Recorded Date/T padmini brother Alzheimer's dementia Unknown father Unknown Alzheimer's dementia Unknown Hypertension Unknown Not Specified Unknown Relationship Condition Age at Onset Recorded Date/T padmini brother Alzheimer's dementia Unknown father Unknown Alzheimer's dementia Unknown Hypertension Unknown mother Unknown Advance Directives Documents on File Type Date Recorded Patient Hand Sander Expl anation Advance Directives and Living Will Power of Energy Trader Advance Directive Response Recorded Date/ Time Advance Directives No June 12:25pm Advance Directive Response Recorded Date/ Time Advance Directives No January 06 3:02pm Advance Directive Response Recorded Date/ Time Advance Directives No January 06 2:02pm Advance Directive Response Recorded Date/ Time Advance Directives No August 05, 2024 2:49pm Discharge Instructions * Attachments The following attachments cannot be sent through Care Everywhere. * Numbness and Tingling (Telugu) * Dizziness (Telugu) documented in this encounter Assessments Diagnosis Dizziness- [...] week f/u after al lumbar RFA Septembe 2023 3:17pm follow up after lumbar RFA [...] :25pm Sacroiliitis June 01, 2024 1 :25pm Chief Complaint Admit Date follow up after lumbar RFA May 13, 2024 1:51pm L4-5 EPIDURAL STEROID INJ May 21, 2024 9:06am FOLLOW UP AFTER LES June 01, 2024 1 :25pm al SI joint injection June 11 10:54am f/u after al SI joint inj May 11:53am Reavaluate pain July 08, 2024 3:34pm MED REFILL FOR PAIN CONTROL August 05, 2024 2:23pm Reason for Visit Admit Date Lumbar radiculopathy May 13, 2024 1:51pm Lumbosacral spondylosis May 13 1:51pm Other chronic pain May 13, 2024 1 :51pm Sacroiliitis May 13, 2024 1 :51pm Lumbar radiculopathy June 01, 2024 1:25pm Lumbosacral spondylosis June 01 1:25pm Other chronic pain June 01, 2024 1 :25pm Sacroiliitis June 01, 2024 1 :25pm Chronic pain June 19, 2024 11:53am Lumbosacral spondylosis June 19, 024 11:53am Sacroiliitis June 19, 2024 11:53am Chronic pain July 08, 2024 3:34pm Lumbar radiculopathy July 08, 2024 3:34pm Sacroiliitis July 08, 2024 3:34pm Chronic pain August 05, 2024 2: 23pm Lumbar radiculopathy August 05, 2024 2 :23pm Sacroiliitis August 05, 2024 2: 23pm Additional Source Comments INFORMATION SOURCE (unrecogn ized section and content) DATE CREATED AUTHOR 01/22/2018 [facility] DATE CREATED AUTHOR AUTHOR'S ORGANIZ ATION 01/22/2018 [facility] DATE CREATED AUTHOR AUTHOR'S ORGANIZ ATION 04/29/2019 [facility] DATE CREATED AUTHOR AUTHOR'S ORGANIZ ATION 08/08/2022 [facility] DATE CREATED AUTHOR AUTHOR'S ORGANIZ ATION 10/27/2022 [facility] DATE CREATED AUTHOR AUTHOR'S ORGANIZ ATION 07/13/2024 [facility] DATE CREATED AUTHOR AUTHOR'S ORGANIZ ATION 07/18/2024 [facility] EPIC Reason for Visit (unrecogniz ed section and content) Reason Comments Dizziness pt states onset this am Arm Pain pt states she had pa in down both arms Reason Comments URI Reason Comments Thyroid Cancer 1 year ultrasound TB H Care Teams (unrecognized sec tion and content) Team Status: Inactive Member Role Status Joyce Beal MD Primary Care Provider Active Vazquez Villar MD Attending Provider Active Team Status: Active Member Role Status Joyce Beal MD Primary Care Provider Active Team Status: Inactive Member Role Status Joyce [...] May 13, 2024 End: May 13, 2024 [employer]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 Start Date End Date Merced Beal MD [address] [facility] [address] [place] [address] PCP - [facility] 02/12/23 Team Status: Inactive Member Role Status Dates [...] June 11, 2024 End: June 11, 2024 [employer]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 Start Date End Date Merced Beal MD [address] [address] PCP - [facility] 02/12/23 Team Status: Active Member Role Status Dates Merced Beal MD Primary Care Provider Active S tart: June 11, 2024 Vazquez Villar MD Attending Provider Active Sta rt: June 11, 2024 Team Status: Inactive Member Role Status Dates Merced Beal MD Primary Care Provider Active S tart: June 19, 2024 End: June 19, 2024 Vazquez Villar MD Attending Provider Active Sta rt: June 19, 2024 End: June 19, 2024 Team Status: Inactive Member Role Status Dates Merced Beal MD Primary Care Provider Active S tart: July 08, 2024 End: July 08, 2024 Vazquez Villar MD Attending Provider Active Sta rt: July 08, 2024 End: July 08, 2024 Team Status: Inactive Member Role Status Dates Merced Beal MD Primary Care Provider Active S tart: August 05, 2024 End: August 05, 2024 Vazquez Villar MD Attending Provider Active Sta rt: August 05, 2024 End: August 05, 2024 Goals (unrecognized section and content) Goals [...] BE BASED ON THE PRIMARY CLINICAL RECORDS. [facility] provides no warranty or guarantee of the accuracy or completeness of information in this document.
== END 2024-08-27 12:56 | disposition home or self-care (01) ==
LOC: MAMMO 12:55
PROVIDERS: PCP Family Medicine; Visit Provider Family Medicine
DX: Z12.31 Encounter for screening mammogram for malignant neoplasm of breast (principal)
CPT/HCPCS: 77063; 77067

== ENCOUNTER 2025-01-11 12:57 | Outpatient (OUT) | payer MEDICARE, MEDICAID, SELFPAY ==
--- NOTE | 2025-01-11 12:59 | US_ITS ---
The [address] [address] Patient Name: JUAN DANIEL PADILLA MRN: [id number] date: 1960 Sex: F Assigned Patient Location: [place] Current Patient Location: [place] Accession/Order Number: [id number] Exam Date: 01/11/2025 21:24 Report Date: 01/11/2025 21:33 At the request of: JOHNY GALAN MD Procedure: US thyroid Thyroid Ultrasound HISTORY: Follow-up left thyroid nodules. Right thyroidectomy. History of papillary microcarcinoma the thyroid. COMPARISON: None Right thyroidectomy. Residual right thyroid parenchyma present. This measures 2.7 x 1.0 x 0.6 cm. LEFT lobe measures 3.2 x 1.9 x 0.9 cm. Isthmus has an AP dimension of 0.3cm. Left superior 3 mm nodule identified. Left and inferior 3 mm thyroid nodule identified. Left mid 6 mm thyroid nodule identified. This nodule is solid composition with hypoechoic echogenicity.. Nodules are similar compared to the prior examination 07/10/2024. No new or enlarging thyroid nodule identified. No microcalcifications identified. Symmetric blood flow of the thyroid gland identified. US/US thyroid IMPRESSION: Redemonstration of similar left thyroid nodules totaling 3 measuring up to 6 mm. No new or enlarging thyroid nodules. Impression dictated by: Gautam Akers M.D. 01/11/2025 9:33 PM Dictation Location: [employer] Electronically authenticated by: [id number] Date: 01/11/2025 21:33
== END 2025-01-11 12:58 | disposition home or self-care (01) ==
LOC: US 12:57
PROVIDERS: PCP Family Medicine; Visit Provider Otolaryngology
DX: C73 Malignant neoplasm of thyroid gland (principal)
CPT/HCPCS: 76536

== ENCOUNTER 2025-02-24 11:45 | Outpatient (OUT) | payer MEDICARE, MEDICAID, SELFPAY | END 2025-02-24 11:46 | disposition home or self-care (01) | LOC: US 11:48 | PROVIDERS: PCP Family Medicine; Visit Provider Nurse Practitioner Family | DX: R60.0 Localized edema (principal) | CPT/HCPCS: 93971 ==